=== PATIENT | male | born 1985 | race Caucasian/White ===

== ENCOUNTER 2016-11-30 11:34 | Inpatient (IN) | payer OTHER ==
[~2016-11-30] VITALS: Ht 185.4 cm; Wt 154.4 kg
[~2016-11-30 11:34] MED LIST: ARIP1INJ INJ; CGN5 PO; DPKSR/500 PO; HLD5 PO; HYDR-3126 PO; OMEP20CA9 PO; [UNRECOGNIZED DRUG - CODE] PO
--- NOTE | 2016-11-30 11:49 | EMERGENCY ROOM VISIT NOTE ---
History Report prepared by Addy: Jade Clayton Under the Supervision of: Dr. Glynn Hernandez M.D. First contact with patient: 11:41 Chief Complaint: MENTAL HEALTH EVALUATION Stated Complaint: MR History of Present Illness The patient is a 31 year old male who presents to the Emergency Room with complaints of worsening mental health issues. He reports he woke up around 0600 this morning, alone in his home. He started to have hallucinations where he felt like he was "going to be arrested" and drove down to a local courthouse. He reports he has a history of problems with a neighbor and was afraid there might be some warrants out for his arrest. He also states "I have trouble interacting with people, I tend to make more enemies than friends". At the courthouse, he spoke to a local customer service security officer, and was told he was going to be brought to the ED to talk with the [employer]. The patient admits to a history of bipolar disorder and schizophrenia. He follows with Dr. Tang, of Psychiatry at [facility]. The patient denies drinking any alcohol last night or this morning. He reports the last time he drank alcohol was last week some time. The patient states there are a lot of rumors in his life that are making things difficult for him. He denies any recent suicidal or homicidal ideations. He reports he has been taking his psychiatric medications as directed, but states he has not had his morning dose of medications yet today. He denies any recent trauma or injuries. He states his head feels warm and he may be running a fever. Source of History: patient Onset: [employer] Position: other (global) Timing: worsening Associated Symptoms: + fevers Review of Systems See HPI for pertinent positives & negatives. A total of 10 systems reviewed and were otherwise negative. Past Medical & Surgical Medical Problems: (1) History of bipolar disorder (2) History of schizophrenia (3) Nicotine dependence (4) Past Psych Meds (5) Schizoaffective disorder, bipolar type Old medical records were reviewed. Nurse's notes were reviewed and I agree with. Family History No pertinent family history Social History Smoking Status: Current Some Day Smoker Alcohol Use: occasionally Drug Use: none Marital Status: single Housing Status: lives with roommate Occupation Status: unemployed Current/Historical Medications Scheduled Aripiprazole (Abilify Maintena), 400 MG INJ MONTHLY Divalproex Sodium (Depakote Etended-Release), 500 MG PO DAILY Divalproex Sodium (Depakote Er), 2 TAB PO HS Hydroxyzine Hcl (Atarax), 50 MG PO BID Quetiapine Fumarate (Seroquel), 25 MG PO HS Scheduled PRN Benztropine Mesylate (Cogentin), 1 MG PO TID PRN for PRN Allergies Coded Allergies: Aminoglycosides (Verified Allergy, Unknown, 12/01/09) Neomycin (Verified Allergy, Unknown, 11/30/16) Physical Exam Vital Signs Date Time Temp Pulse Resp B/P Pulse Ox O2 Delivery O2 Flow Rate FiO2 11/30/16 13:26 105 18 142/103 96 Room Air 11/30/16 11:35 36.4 94 18 182/124 96 Room Air Physical Exam General: Well developed, well nourished, middle aged male, in no acute distress , breathing comfortably on room air. Normal speech, answering questions vaguely but appropriately. Patient is alert and oriented x 3. HEENT: Normal cephalic atraumatic. Pupils are equal round and reactive to light. Extraocular movements are intact. Oropharynx is pink with moist mucous membranes. No swelling of the mouth lips or tongue. Neck: Supple with a midline trachea. No meningeal signs or stiffness, no JVD or bruits. No Stridor. Chest: Clear to auscultation bilaterally. No wheezes or rhonchi. No increased work of breathing. Heart: regular rate and rhythm. Abdomen: Soft nontender, nondistended without rebound guarding or rigidity. Extremities: No cyanosis clubbing or edema. No calf tenderness or assymetry Spine/Back. Non tender to palpation. No CVA tenderness Skin: Good turgor without rashes. Neurologic exam: Cranial nerves two through 12 are intact. Motor and sensation are intact and symmetrical throughout. Psychiatric: The patient denies any SI or HI. Paranoid thinking with some disjointed thinking. Medical Decision & Procedures Laboratory Results 11/30/16 12:17 Red Blood Count 5.21, Mean Corpuscular Volume 85.2, Mean Corpuscular Hemoglobin 29.8, Mean Corpuscular Hemoglobin Concent 34.9, Mean Platelet Volume 11.1, Neutrophils (%) (Auto) 64.0, Lymphocytes (%) (Auto) 25.4, Monocytes (%) (Auto) 8.7, Eosinophils (%) (Auto) 0.9, Basophils (%) (Auto) 0.7, Neutrophils # (Auto) 3.75, Lymphocytes # (Auto) 1.49, Monocytes # (Auto) 0.51, Eosinophils # (Auto) 0.05, Basophils # (Auto) 0.04 11/30/16 12:17 Test 11/30/16 11:41 11/30/16 12:17 Urine Opiates Screen NEG (NEG) Urine Methadone, Qualitative NEG (NEG) Urine Barbiturates NEG (NEG) Urine Phencyclidine (PCP) Level NEG (NEG) Ur Amphetamine/Methamphetamine NEG (NEG) MDMA (Ecstasy) Screen NEG (NEG) Urine Benzodiazepines Screen NEG (NEG) Urine Cocaine Metabolite NEG (NEG) Urine Marijuana (THC) NEG (NEG) White Blood Count 5.86 K/uL (4.8-10.8) Red Blood Count 5.21 M/uL (4.7-6.1) Hemoglobin 15.5 g/dL (14.0-18.0) Hematocrit 44.4 % (42-52) Mean Corpuscular Volume 85.2 fL (80-100) Mean Corpuscular Hemoglobin 29.8 pg (25-34) Mean Corpuscular Hemoglobin Concent 34.9 g/dl (32-36) Platelet Count 201 K/uL (130-400) Mean Platelet Volume 11.1 fL (7.4-10.4) Neutrophils (%) (Auto) 64.0 % Lymphocytes (%) (Auto) 25.4 % Monocytes (%) (Auto) 8.7 % Eosinophils (%) (Auto) 0.9 % Basophils (%) (Auto) 0.7 % Neutrophils # (Auto) 3.75 K/uL (1.4-6.5) Lymphocytes # (Auto) 1.49 K/uL (1.2-3.4) Monocytes # (Auto) 0.51 K/uL (0.11-0.59) Eosinophils # (Auto) 0.05 K/uL (0-0.5) Basophils # (Auto) 0.04 K/uL (0-0.2) RDW Standard Deviation 39.8 fL (36.4-46.3) RDW Coefficient of Variation 12.9 % (11.5-14.5) Immature Granulocyte % (Auto) 0.3 % Immature Granulocyte # (Auto) 0.02 K/uL (0.00-0.02) Anion Gap 8.0 mmol/L (3-11) Est Creatinine Clear Calc Drug Dose 173.2 ml/min Estimated GFR () 122.3 Estimated GFR (Non- 105.5 BUN/Creatinine Ratio 8.6 (10-20) Calcium Level 9.3 mg/dl (8.5-10.1) Total Bilirubin 0.4 mg/dl (0.2-1) Direct Bilirubin < 0.1 mg/dl (0-0.2) Aspartate Amino Transf (AST/SGOT) 34 U/L (15-37) Alanine Aminotransferase (ALT/SGPT) 102 U/L (12-78) Alkaline Phosphatase 52 U/L (45-117) Total Protein 7.9 gm/dl (6.4-8.2) Albumin 4.5 gm/dl (3.4-5.0) Lipase 103 U/L (73-393) Thyroid Stimulating Hormone (TSH) 1.830 uIu/ml (0.300-4.500) Salicylates Level < 1.7 mg/dl (2.8-20) Acetaminophen Level < 2 ug/ml (10-30) Valproic Acid (Depakene) Level 34 mcg/ml (50-100) Ethyl Alcohol mg/dL < 3.0 mg/dl (0-3) Laboratory studies as stated above per my review. Medications Administered Medications (Trade) Dose Ordered Sig/Crystal Route Start Time Stop Time Status Last Admin Dose Admin Lorazepam (Ativan Tab) 1 mg NOW STAT SL 11/30/16 13:35 11/30/16 13:36 DC 11/30/16 13:41 1 MG Benztropine Mesylate (Cogentin Tab) 1 mg NOW STAT PO 11/30/16 14:21 11/30/16 14:22 DC 11/30/16 14:26 1 MG ED Course 1142: Past medical records reviewed. The patient was evaluated in room A7, and a complete history and physical examination were performed. 1215: Mental Health Case Management is evaluating the patient. 1230: Janneth, our Mental Health Acid Purifier, will work on having the patient further evaluated. 1334: I reevaluated the patient. He is getting Ativan because he was starting to become agitated. He is currently being seen by a [address] [place] [address] Mental Health Drafter Topographical. 1335: Lorazepam 1 mg SL. 1420: I discussed the patients case with [address] [place] [address]'s Psychiatric Care Floor. The patient will be further evaluated. 1421: Cogentin Tab 1 mg PO. Medical Decision Etiologies such as mood disorder, infection, hypoglycemia, electrolyte abnormalities, cardiac sources, intracerebral event, toxicologic, neurologic, as well as others were entertained. This patient comes in as described above. He was placed in room A7. Here for treatment and evaluation of paranoid and delusional thinking. He has a history of bipolar and/or schizophrenia. He claims to be taking his medications. He is cooperative upon exam however has very disjointed thinking and thought process he also seems very paranoid. He denies any suicidal or homicidal ideations. Multiple blood testing was obtained for medical clearance. He was reassessed frequently. He was seen in the emergency or by Janneth, our psychiatric foster care case manager. He did ultimately also received some Ativan as he started getting agitated this helped greatly. He was evaluated by [address] and will be admitted for further inpatient treatment and evaluation. Consults Time Called: 1419 Consulting Physician: [address] [place] [address]'s Psychiatric Care Floor Returned Call: 1421 I discussed the patient's case with [address] [place] [address] Psychiatric Care Floor. The patient will be further evaluated. Impression Primary Impression: Bipolar disorder Additional Impressions: Anxiety Paranoia Scribe Attestation The scribe's documentation has been prepared under my direction and personally reviewed by me in its entirety. I confirm that the note above accurately reflects all work, treatment, procedures, and medical decision making performed by me. Departure Information Dispostion Other (The patient will be further evaluated by [address] [place] [address]'s Psychiatric Care Floor) Referrals No Doctor, Assigned (PCP) Patient Instructions My [facility] Problem Qualifiers
[2016-11-30] MEDS ORDERED: QUET1TAB30 PO ×2 (12:27→16:27)
[2016-11-30 12:39] LABS: BASO % 0.7 %; BASO ABS # 0.04 K/uL (0-0.2); COMPLETE YES; EOS % 0.9 %; HEMATOCRIT 44.4 % (42-52); IG% 0.3 %; LYMPH % 25.4 %; LYMPH ABS # 1.49 K/uL (1.2-3.4); MEAN CELL VOLUME 85.2 fL (80-100); MEAN CORPUSCULAR HEMOGLOBIN 29.8 pg (25-34); MEAN CORPUSCULAR HGB CONC 34.9 g/dl (32-36); MEAN PLATELET VOLUME 11.1 fL (7.4-10.4); MONO % 8.7 %; PLATELET COUNT 201 K/uL (130-400); RED BLOOD COUNT 5.21 M/uL (4.7-6.1); WHITE BLOOD COUNT 5.86 K/uL (4.8-10.8)
[2016-11-30 13:09] LABS: BENZODIAZEPINE, URINE NEG (NEG); COCAINE,URINE NEG (NEG); PHENCYCLIDINE, URINE NEG (NEG)
[2016-11-30 13:12] LABS: ALKALINE PHOSPHATASE 52 U/L (45-117); ALT/SGPT 102 U/L (12-78); AST/SGOT 34 U/L (15-37)
[2016-11-30 13:15] LABS: BUN/CREATININE RATIO 8.6 (10-20); CALCIUM 9.3 mg/dl (8.5-10.1); CREATININE 0.95 mg/dl (0.60-1.40); POTASSIUM 4.3 mmol/L (3.5-5.1)
[2016-11-30 13:20] LABS: ACETAMINOPHEN < 2 ug/ml (10-30)
[2016-11-30 13:26] VITALS: O2SAT 96
[2016-11-30] MEDS ORDERED: LORAZEPAM 1 MG TAB SL STA (13:35)
[2016-11-30] MEDS ORDERED: BENZTROPINE MESYLATE 1 MG TAB PO STA (14:21)
[2016-11-30] MEDS ORDERED: BENZTROPINE MESYLATE 0.5 MG TAB PO PRN ×2 (15:45→22:00)
[2016-11-30] MEDS: NICOTINE 21 MG/24 HR TDSY TD SCH (16:00)
[2016-11-30] MEDS ORDERED: MAGNESIUM HYDROXIDE SUSP 30 ML UDC PO PRN (16:00)
[2016-11-30] MEDS ORDERED: ALUMINUM/MAGNESIUM SUSP 30 ML UDC PO PRN (16:00)
[2016-11-30] MEDS ORDERED: DIVALPROEX 500 MG EXTENDED RELEASE TAB PO ONE (16:00)
[2016-11-30] MEDS ORDERED: BISMUTH SUBSALICYLATE PER ML OMNICELL CHARGE PO PRN (16:00)
[2016-11-30] MEDS ORDERED: DPKSR/500 PO (16:20)
[2016-11-30] MEDS ORDERED: DIVA500T3 PO (16:22)
[2016-11-30] MEDS ORDERED: CGN1 PO (16:24)
[2016-11-30] MEDS ORDERED: HYDR-3126 PO (16:25)
[2016-11-30 16:29] VITALS: BP 147/84; PULSE 105; TEMP 36.6; BMI 44.9
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
[2016-11-30] MEDS: DIVALPROEX 500 MG EXTENDED RELEASE TAB PO SCH (20:58)
[2016-11-30] MEDS: QUETIAPINE FUMARATE 25 MG TAB PO SCH (20:59)
[2016-12-01 06:45] VITALS: BP_SYST 125; BP_SYST 130; BP_DIAS 66; BP_DIAS 83; PULSE 106; PULSE 98; TEMP 36.4
[2016-12-01 07:06] VITALS: Ht 185.4 cm; Wt 154.4 kg
[2016-12-01 07:15] LABS: CHOLESTEROL/HDL RATIO 5.3
[2016-12-01] MEDS: DIVALPROEX 500 MG EXTENDED RELEASE TAB PO SCH ×2 (08:49→22:23)
[2016-12-01] MEDS: NICOTINE 21 MG/24 HR TDSY TD SCH (08:49)
[2016-12-01] MEDS: NICOTINE POLACRILEX 2 MG GUM MT PRN ×3 (13:39→20:15)
[2016-12-01] MEDS: ACETAMINOPHEN 325 MG TAB PO PRN (13:40)
[2016-12-01] MEDS: NICOTINE 14 MG/24 HR TDSY TD SCH (13:44)
--- NOTE | 2016-12-01 20:03 | Psychiatric Progress Notes ---
Progress Note Date of Service Dec 01, 2016. Chief Complaint "I am doing better". Subjective Patient was seen & assessed interval progress reviewed with nurses. pt has some improvement to his thought process but is still with noticeable disorganization. Some mild boundary issues with how much personal space given other.s Pt stated no further Delusions of reference or thought broadcasting noted today while being able to express in more clear fashion how such symptoms were occurring in recent past while at work. pt is still rather concrete and insight is quite impaired., however he is viewing himself as fully at baseline. He reports sleeping well last night and staff assist in him sleeping past normal wake up time. He is taking his medications fully and denied s/e . He indicated that he last obtain an abilify mantena injection on 11/15 but also described that day as a Friday (while it was a Friday). he stated he is next due for the injection on 12/06 and that he obtains them 20 days apart. He shared how did not yet need a cogentin dose and just feels restless in general about being able to leave the hospital soon. He had told nurses at admission that he had cig allison that he does not know how they occurred on his back and face but today to technical writer and editor he denied them as cigarette allison and instead jsut a bump on his face and some skin irritation on his back that he is not sure how they arrived. he views himself as no longer paranoid. He described not feeling stuck in his past any longer and that he hears some mild mumbling but that the AH is much reduced and not bothersome today. He denied si or hi. He stated that his depression is much less today but can feel sad at times today but not sure why. He stated that he removed his nicotine patch this morning concerned that it was too strong but also stated might just be a bit out of it in general. He is interested in nicotine gum (which has been ordered) and wants a new nicotine patch. He stated that he smokes somewhat less then a pack in a day but only smokes about half the week. Review of Systems Constitutional: No chills, No fatigue, No fever, No problem reported, No sweats , No weakness, No weight loss ENT: No dental problems, No hearing loss, No nasal symptoms, No problem reported, No sore throat, No tinnitus, No trouble swallowing, No unusual epistaxis Cardiovascular: No PND, No chest pain, No claudication, No edema, No orthopnea , No palpitations, No problem reported Abdomen: No GI bleeding, No constipation, No diarrhea, No nausea, No pain, No problem reported, No vomiting Musculoskeletal: No calf pain, No joint pain, No muscle pain, No problem reported, No swelling Neurologic: No balance problems, No memory loss, No numbness/tingling, No paralysis, No problem reported, No vertigo, No weakness Psychiatric: + anxiety Sleep Information Total Hours of Sleep: 6.50 Meal Information Percent of Breakfast Consumed: 100 Percent of Lunch Consumed: 100 Percent of Dinner Consumed: 100 Mental Status Exam During interview pt is: alert and oriented, cooperative Appearance: appropriately dressed, other (wearing shorts that are torn with large gaping hole on right side, tshirt too small (other clothes appear to be at nursing station) rather poor hygiene ) Eye contact is: fair Motor behavior is: steady gait & station, psychomotor agitation Speech: normal in rate, rhythm & volume Affect: blunted, irritable Mood is: other ("better but restless to leave soon") Thought process: tangential, concrete Thought content: delusions, other (endorsed recent thought broadcasting and Delusions of reference denied occured today) Suicidal thought are: denied Homicidal thoughts are: denied Hallucinations: auditory (lessened signficantly per pt) Cognition: other (attention and concentration impaired) Intelligence estimated to be: average Insight: impaired Judgement: severely impaired Impression 31 yr old male admitted 201 vol commitment after being brought by the police when he was being disorganized at the courthouse [place]. Pt is with psychotic features and quite disorganized in his thinking and behaviors and not able to take care of self. He is taking his meds in general but appears to have been taking incomplete dosage of depakote lately with a low Depakote level obtained in ER (reported about 14 hours from last dosage) and unclear exact timing of last Abilify maintena injection but might have obtained a couple days ago, and external med history noted a dosage rx'd 11/06/16. He is also on seroquel 25mg hs for past number of months. He takes vistaril and cogentin prn as well. Medically he has obesity and pulmonary stenosis Plan (1) Schizoaffective disorder, bipolar type 2/4 1. clarify timing of last abilify maintena dosage, potential adjustment of this medication dosage and to continue and provider next dosage if/when due for it if appearing to be effective medication 2. raising seroquel with pt consenting, aiming for 50mg hs on 11/30 with possible further titration, limited first step up given pt also been obtaining abilify maintena (pt has been on both atypical antipsychotics for past several months and pt has limited sleep and ongoing psychotic/mood symptoms despite failing multiple antipsychotics including clozaril 3. pt states only taking Depakote 500mg 1 bid, with missing this mornings dosage but took it at 500mg bid past number of days and last took it about 9- 10pm last night per pt. depakote level around approx 14-15 hours from last dosage is low at. pt consents to raising Depakote to 500mg am and 1000mg hs starting with his 11/30 500mg dose given now. (this is his dosage on his recent scripts from his pharmacy. recheck depakote level in approx 5 days to see if this dosage provides therapeutic level 3. continue cogentin 1mg prn up to tid for eps/akathisia 4. continue vistaril 50mg prn up to tid for anxiety/insomnia 5. reality testing, emotional support 6. coordination with outpatient providers and aftercare appointments, if not actively in psychotherapy consider referral to psychotherapy 7. fasting lipids and glucose and labs for being on depakote 2/ fasting lipids trig and total choles elevated and sugar mildly elevated, encouraged pt to make changes in po intake and will consider potential of med adjustments to address this continue seroquel at 50mghs (raised on admission from 25mg), continue depakote er at 500mg am an 1000mg hs (raised back to full dose per prescription at admission) aim to recheck depakote level after 5 days of current dosage, aim to recheck ALT since mildly elevated at admission. ammonia level checked given level of confusion but level is appropriate and while considered just above normal range on [facility] lab reference point is not elevated to level would be likely to cause presentation that is now improving as Depakote is also being increased. (level also at upper limit of range when checked other reference range) last Abilify Mantena injection might have been given on 11/15 and reported to be due on 12/06, attempting to clarify with outpt specialty pharmacy and outpt providers to confirm this coordinating with outpt providers and pillowcase folder and after care appointments to be arranged (2) Nicotine dependence 11/30. pt smokes up to 1ppd and states not every day lately but many days a week. encouraged smoking cessation and provided nicotine patch 21mg topical per day and prn nicotine gum, pt not feeling ready to quit at this time but seeking patch to help with withdrawal and craving while in hospital 12/01 given pt taking of patch for possibly being too strong, reducing nicotine patch to 14mg, reminded pt about nicotine gum order Discharge / Aftercare Planning Primary Care Physician: Name: Dr. Valles Psychiatrist: Name: Dr. Tang Therapist: Name: none Secretary Of State: Name: Jennifer Suazo Assets Strengths: seeking medication adjustment and psychiatric help, has outpatient providers, realizes has mental illness that is impacting his thinking and behaviors Needs: medication adjustment, assistance in obtaining sleep and taking care of basic needs, stabilization of symptoms to help be more organized, more full complaince of treatment Risk Factors Assessment Male: Yes : Yes /single/: Yes Substance use disorders: No Previous attempt: No Family history of suicide: No Previous psychiatric stay: Yes Smoker: Yes Protective Factors Assessment Employed: Yes Data Vital Signs Last 24 Hrs: Date Time Temp Pulse Resp B/P Pulse Ox O2 Delivery O2 Flow Rate FiO2 12/01/16 06:45 36.4 98 16 130/66 106 125/83 Meds Administered Last 24 Hrs: Meds Administered (Past 24Hrs) Medications (Trade) Dose Ordered Sig/Crystal Route Start Time Stop Time Status Last Admin Dose Admin Lorazepam (Ativan Tab) 1 mg NOW STAT SL 11/30/16 13:35 11/30/16 13:36 DC 11/30/16 13:41 1 MG Benztropine Mesylate (Cogentin Tab) 1 mg NOW STAT PO 11/30/16 14:21 11/30/16 14:22 DC 11/30/16 14:26 1 MG Divalproex Sodium (Depakote Extended Rel Tab) 500 mg NOW ONCE PO 11/30/16 16:00 11/30/16 16:01 DC 11/30/16 20:57 500 MG Divalproex Sodium (Depakote Extended Rel Tab) 500 mg DAILY PO 12/01/16 09:00 12/31/16 08:59 12/01/16 08:49 500 MG Divalproex Sodium (Depakote Extended Rel Tab) 1,000 mg HS PO 11/30/16 22:00 12/30/16 21:59 11/30/16 20:58 1,000 MG Acetaminophen (Tylenol Tab) 650 mg Q4H PRN PO 11/30/16 16:00 12/30/16 15:59 12/01/16 13:40 650 MG Nicotine (Nicoderm Cq 21MG Patch) 1 patch QAM TD 12/01/16 09:00 12/01/16 13:24 DC 12/01/16 08:49 1 PATCH Nicotine Polacrilex (Nicorette 2MG Gum) 1 piece Q2H PRN MT 11/30/16 16:00 12/30/16 15:59 12/01/16 15:56 1 PIECE Quetiapine Fumarate (seroQUEL TAB) 50 mg HS PO 11/30/16 22:00 12/30/16 21:59 11/30/16 20:59 50 MG Nicotine (Nicoderm Cq 14MG Patch) 1 patch QAM TD 12/01/16 14:00 12/31/16 13:59 12/01/16 13:44 1 PATCH Lab Results Last 24 Hrs: Last 24 Hours Test 12/01/16 06:35 Fasting Glucose 105 mg/dl Ammonia 34.0 umol/L Triglycerides Level 315 mg/dl Cholesterol Level 218 mg/dl HDL Cholesterol 41 mg/dl LDL Cholesterol, Calculated 114 mg/dl VLDL Cholesterol, Calculated 63 mg/dl Cholesterol/HDL Ratio 5.3
[2016-12-01] MEDS: QUETIAPINE FUMARATE 25 MG TAB PO SCH (22:22)
[2016-12-02 06:34] VITALS: BP_SYST 128; BP_SYST 131; BP_DIAS 81; BP_DIAS 85; PULSE 106; PULSE 99; TEMP 36.8
[2016-12-02] MEDS: DIVALPROEX 500 MG EXTENDED RELEASE TAB PO SCH ×2 (08:59→22:01)
[2016-12-02] MEDS: NICOTINE 14 MG/24 HR TDSY TD SCH (08:59)
[2016-12-02] MEDS: NICOTINE POLACRILEX 2 MG GUM MT PRN ×3 (09:38→17:16)
--- NOTE | 2016-12-02 10:45 | Psychiatric Progress Notes ---
Progress Note Date of Service Dec 02, 2016. Interval History Bonilla Anderson is a 31-year-old male who currently lives in [place] alone, has a history of schizoaffective disorder bipolar type, noncompliance and alcohol abuse, and was admitted voluntarily after presenting with police due to disorganized behavior and showing up at the court house Friday, concerned that he was "in trouble." He is unable to provide for his basic needs due to psychosis. Chief Complaint "I had to leave group". Subjective Patient was seen & assessed interval progress reviewed with Treatment Team. Staff report he continues to demonstrate disorganized thoughts and behavior, with pressured speech, and expressing confusion about how he came to be in the hospital. He is attending groups, but sometimes has to leave early as he feels overwhelmed and is restless. He has difficulty communicating his thoughts in group, and is tangential. Today he was seen in his room, shortly after he got up and left relaxation group abruptly, stating that he heard a voice telling him he was "an idiot, a fucking retard, get up and leave. It was a body reaction, tears in my eyes... It was time to get up and leave." He has difficulty explaining what happened, saying that someone in the group said "' super fantastic,' and it just hit a nerve. A lot of things I deal with in life are called double negative, it might mean something good, but it means something bad." When asked about his mood, he says "disorganized and out of place, didn't know how to explain what was going on in my mind." He is a difficult historian, frequently answering with unrelated information, and gives conflicting reports at times. 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 He says "does that make any sense, presented delusional?" He says his mental health "has been up and down." He denies that he feels unsafe here, then says "have I heard anyone?" He denies thoughts of suicide or current thoughts of hurting anyone else. He admits to auditory hallucinations, saying "I do hear voices when I get too far inside my own mind, I don't know how that happens." He says he is anxious because "I'm being force-fed, like I'm reading it off a script. Something happened at the [facility]... It's not good." He initially says he is sleeping well, then says "my sleep's not good, not restful." Sleep Information Total Hours of Sleep: 7.75 Meal Information Percent of Breakfast Consumed: 100 Percent of Lunch Consumed: 100 Percent of Dinner Consumed: 100 Mental Status Exam During interview pt is: alert and oriented, cooperative Appearance: appropriately dressed, other (obese, unkempt) Eye contact is: fair Motor behavior is: steady gait & station, psychomotor agitation (fidgeting constantly, shifting frequently in chair) Speech: normal in rate, rhythm & volume Affect: anxious, constricted (distraught) Mood is: other (answers with unrelated information) Thought process: tangential, concrete Thought content: paranoid, other (negative thought/AH about himself) Suicidal thought are: denied Homicidal thoughts are: denied Hallucinations: auditory (telling him he's "an idiot") Cognition: other (attention and concentration impaired) Intelligence estimated to be: average Insight: impaired Judgement: severely impaired Medication Trials (1) Past Psych Meds clozapine, Zyprexa, Geodon, latuda, lamictal, Tegretol, klonopin, wellbutrin, lithium among other med trials that he cannot recall Last Edited By: Stefania Kumari on Dec 02, 2016 10:29 Impression 31 yr old male admitted 201 vol commitment after being brought by the police due to disorganized thinking and behavior, showed up at the court house thinking he was "in trouble." Presented with psychotic symptoms of auditory hallucinations, paranoia, ideas of reference and disorganization, unable to take care of himself. He is taking his meds in general but appears to have been taking incomplete dosage of Depakote lately with a low Depakote level obtained in ER, and unclear timing of last Abilify Maintena injection (external med history noted a dosage rx'd 11/06/16). He is also on Seroquel 25mg hs for past number of months, which was increased on admission. Plan (1) Schizoaffective disorder, bipolar type 2/4 1. clarify timing of last Abilify Maintena dosage, potential adjustment of this medication dosage and to continue and provider next dosage if/when due for it if appearing to be effective medication 2. raising seroquel with pt consenting, aiming for 50mg hs on 11/30 with possible further titration, limited first step up given pt also been obtaining abilify maintena (pt has been on both atypical antipsychotics for past several months and pt has limited sleep and ongoing psychotic/mood symptoms despite failing multiple antipsychotics including clozaril 3. pt states only taking Depakote 500mg 1 bid, with missing this mornings dosage but took it at 500mg bid past number of days and last took it about 9- 10pm last night per pt. depakote level around approx 14-15 hours from last dosage is low at. pt consents to raising Depakote to 500mg am and 1000mg hs starting with his 11/30 500mg dose given now. (this is his dosage on his recent scripts from his pharmacy. recheck depakote level in approx 5 days to see if this dosage provides therapeutic level 3. continue cogentin 1mg prn up to tid for eps/akathisia 4. continue vistaril 50mg prn up to tid for anxiety/insomnia 5. reality testing, emotional support 6. coordination with outpatient providers and aftercare appointments, if not actively in psychotherapy consider referral to psychotherapy 7. fasting lipids and glucose and labs for being on depakote 2/ fasting lipids: trig and total cholesterol elevated, and sugar mildly elevated. Encouraged healthy diet and will need ongoing monitoring continue seroquel at 50mghs (raised on admission from 25mg), continue depakote er at 500mg am an 1000mg hs (raised back to full dose per prescription at admission) aim to recheck depakote level after 5 days of current dosage, aim to recheck ALT since mildly elevated at admission. ammonia level checked given level of confusion but level is appropriate and while considered just above normal range on [facility] lab reference point is not elevated to level would be likely to cause presentation that is now improving as Depakote is also being increased. (level also at upper limit of range when checked other reference range) last Abilify Maintena injection might have been given on 11/15 and reported to be due on 12/06, attempting to clarify with outpt specialty pharmacy and outpt providers to confirm this coordinating with outpt providers and child support case officer and after care appointments to be arranged 12/02 - get records to clarify when received last Maintena injection. - Order recheck of LFTs, ammonia, and Depakote trough level for 12/05. - Coordinate with outpatient providers - Family meeting with child support case officer (2) Nicotine dependence 11/30 - pt smokes up to 1ppd and states not every day lately but many days a week. encouraged smoking cessation and provided nicotine patch 21mg topical per day and prn nicotine gum, pt not feeling ready to quit at this time but seeking patch to help with withdrawal and craving while in hospital 12/01 - patient removing patch as thinks it's too strong, so reduced to 14mg patch. Also has nicotine gum order when necessary. Discharge / Aftercare Planning Primary Care Physician: Name: Dr. Valles Psychiatrist: Name: Dr. Tang Therapist: Name: none Associate Sales: Name: Jennifer Ruiz Visit Code E&M Code: 64108 Inventory Assets Strengths: seeking medication adjustment and psychiatric help, has outpatient providers, realizes has mental illness that is impacting his thinking and behaviors Needs: medication adjustment, assistance in obtaining sleep and taking care of basic needs, stabilization of symptoms to help be more organized, more full complaince of treatment Risk Factors Assessment Male: Yes : Yes /single/: Yes Higher / Fall in social status: No Health problems: Yes Mental Health Diagnoses: Yes Substance use disorders: Yes Previous attempt: No Family history of suicide: No Previous psychiatric stay: Yes Hopelessness: No Smoker: Yes Protective Factors Assessment : No Responsible for young children: No Employed: Yes Stable relationships: No Supportive family: No Data Vital Signs Last 24 Hrs: Date Time Temp Pulse Resp B/P Pulse Ox O2 Delivery O2 Flow Rate FiO2 12/02/16 06:34 36.8 99 16 131/85 106 128/81 Meds Administered Last 24 Hrs: Meds Administered (Past 24Hrs) Medications (Trade) Dose Ordered Sig/Crystal Route Start Time Stop Time Status Last Admin Dose Admin Lorazepam (Ativan Tab) 1 mg NOW STAT SL 11/30/16 13:35 11/30/16 13:36 DC 11/30/16 13:41 1 MG Benztropine Mesylate (Cogentin Tab) 1 mg NOW STAT PO 11/30/16 14:21 11/30/16 14:22 DC 11/30/16 14:26 1 MG Divalproex Sodium (Depakote Extended Rel Tab) 500 mg NOW ONCE PO 11/30/16 16:00 11/30/16 16:01 DC 11/30/16 20:57 500 MG Divalproex Sodium (Depakote Extended Rel Tab) 500 mg DAILY PO 12/01/16 09:00 12/31/16 08:59 12/02/16 08:59 500 MG Divalproex Sodium (Depakote Extended Rel Tab) 1,000 mg HS PO 11/30/16 22:00 12/30/16 21:59 12/01/16 22:23 1,000 MG Acetaminophen (Tylenol Tab) 650 mg Q4H PRN PO 11/30/16 16:00 12/30/16 15:59 12/01/16 13:40 650 MG Nicotine (Nicoderm Cq 21MG Patch) 1 patch QAM TD 12/01/16 09:00 12/01/16 13:24 DC 12/01/16 08:49 1 PATCH Nicotine Polacrilex (Nicorette 2MG Gum) 1 piece Q2H PRN MT 11/30/16 16:00 12/30/16 15:59 12/02/16 09:38 1 PIECE Quetiapine Fumarate (seroQUEL TAB) 50 mg HS PO 11/30/16 22:00 12/30/16 21:59 12/01/16 22:22 50 MG Nicotine (Nicoderm Cq 14MG Patch) 1 patch QAM TD 12/01/16 14:00 12/31/16 13:59 12/02/16 08:59 1 PATCH
[2016-12-02] MEDS: ACETAMINOPHEN 325 MG TAB PO PRN ×2 (10:47→14:49)
[2016-12-02] MEDS: QUETIAPINE FUMARATE 25 MG TAB PO SCH (22:01)
[2016-12-03 06:41] VITALS: BP_SYST 149; BP_SYST 151; BP_DIAS 88; BP_DIAS 93; PULSE 93; PULSE 97; TEMP 36.8
[2016-12-03] MEDS: NICOTINE 14 MG/24 HR TDSY TD SCH (08:50)
[2016-12-03] MEDS: DIVALPROEX 500 MG EXTENDED RELEASE TAB PO SCH ×2 (08:50→21:22)
[2016-12-03] MEDS: NICOTINE POLACRILEX 2 MG GUM MT PRN ×3 (08:53→19:16)
[2016-12-03] MEDS: ACETAMINOPHEN 325 MG TAB PO PRN (10:26)
[2016-12-03] MEDS: hydrOXYzine HCL 25 MG TAB PO PRN ×2 (11:04→15:39)
--- NOTE | 2016-12-03 13:32 | Psychiatric Progress Notes ---
Progress Note Date of Service Dec 03, 2016. Interval History Bonilla Anderson is a 31-year-old male who currently lives in [place] alone, has a history of schizoaffective disorder bipolar type, noncompliance and alcohol abuse, and was admitted voluntarily after presenting with police due to disorganized behavior and showing up at the court house Friday, concerned that he was "in trouble." He is unable to provide for his basic needs due to psychosis. Chief Complaint "Less Anxiety". Subjective Patient was seen & assessed interval progress reviewed with nursing. Patient reports that he took medication for anxiety at 11 am (took vistaril) and he is feeling less anxious. He has attended groups and stay longer and less overwhelmed than on previous days. He does answer questions appropriately but at time string together thoughts that seem unrelated. He is worried about his car and wonders if he can trust his parents, to whom he gave the keys to retrieve his car from where is left it before coming to hospital. He has tried to call them and they are not answering. He denies suicidal or homicidal ideation. He says that he continues to hear his own repeated thoughts about himself. Denies auditory hallucinations. When describing his mood he said several words including "somber, happy, in the middle, normal" and would stop part way through the sentence and change the word. Review of Systems Musculoskeletal: + problem reported (back pain using heat patch and it is helping. ) Sleep Information Total Hours of Sleep: 7.50 Meal Information Percent of Breakfast Consumed: 100 Percent of Lunch Consumed: 100 Percent of Dinner Consumed: 100 Mental Status Exam During interview pt is: alert and oriented, cooperative Appearance: appropriately dressed, other (obese, unkempt, malodorus) Eye contact is: fair Motor behavior is: steady gait & station, psychomotor agitation (fidgeting in chair) Speech: normal in rate, rhythm & volume Affect: anxious, constricted (distraught) Mood is: other (answers with unrelated information) Thought process: tangential, concrete Thought content: paranoid (worried about parents taking care of car), other ( negative thought/AH about himself) Suicidal thought are: denied Homicidal thoughts are: denied Hallucinations: denies auditory, other (own voice telling him repeatedly that he is bad) Cognition: other (attention and concentration impaired) Intelligence estimated to be: average Insight: impaired Judgement: severely impaired Medication Trials (1) Past Psych Meds clozapine, Zyprexa, Geodon, latuda, lamictal, Tegretol, klonopin, wellbutrin, lithium among other med trials that he cannot recall Last Edited By: Stefania Kumari on Dec 02, 2016 10:29 Impression 31 yr old male admitted 201 vol commitment after being brought by the police due to disorganized thinking and behavior, showed up at the court house thinking he was "in trouble." Presented with psychotic symptoms of auditory hallucinations, paranoia, ideas of reference and disorganization, unable to take care of himself. He is taking his meds in general but appears to have been taking incomplete dosage of Depakote lately with a low Depakote level obtained in ER, and unclear timing of last Abilify Maintena injection (external med history noted a dosage rx'd 11/06/16 and last administered on 11/19/2016 and is due on 12/17/2016). He is also on Seroquel 25mg hs for past number of months, which was increased on admission. Plan (1) Schizoaffective disorder, bipolar type /4 1. clarify timing of last Abilify Maintena dosage, potential adjustment of this medication dosage and to continue and provider next dosage if/when due for it if appearing to be effective medication 2. raising seroquel with pt consenting, aiming for 50mg hs on 11/30 with possible further titration, limited first step up given pt also been obtaining abilify maintena (pt has been on both atypical antipsychotics for past several months and pt has limited sleep and ongoing psychotic/mood symptoms despite failing multiple antipsychotics including clozaril 3. pt states only taking Depakote 500mg 1 bid, with missing this mornings dosage but took it at 500mg bid past number of days and last took it about 9- 10pm last night per pt. depakote level around approx 14-15 hours from last dosage is low at. pt consents to raising Depakote to 500mg am and 1000mg hs starting with his 11/30 500mg dose given now. (this is his dosage on his recent scripts from his pharmacy. recheck depakote level in approx 5 days to see if this dosage provides therapeutic level 3. continue cogentin 1mg prn up to tid for eps/akathisia 4. continue vistaril 50mg prn up to tid for anxiety/insomnia 5. reality testing, emotional support 6. coordination with outpatient providers and aftercare appointments, if not actively in psychotherapy consider referral to psychotherapy 7. fasting lipids and glucose and labs for being on depakote 12/01 fasting lipids: trig and total cholesterol elevated, and sugar mildly elevated. Encouraged healthy diet and will need ongoing monitoring continue seroquel at 50mghs (raised on admission from 25mg), continue depakote er at 500mg am an 1000mg hs (raised back to full dose per prescription at admission) aim to recheck depakote level after 5 days of current dosage, aim to recheck ALT since mildly elevated at admission. ammonia level checked given level of confusion but level is appropriate and while considered just above normal range on [facility] lab reference point is not elevated to level would be likely to cause presentation that is now improving as Depakote is also being increased. (level also at upper limit of range when checked other reference range) last Abilify Maintena injection might have been given on 11/15 and reported to be due on 12/06, attempting to clarify with outpt specialty pharmacy and outpt providers to confirm this coordinating with outpt providers and catalytic case operator and after care appointments to be arranged 12/02 - get records to clarify when received last Maintena injection. - Order recheck of LFTs, ammonia, and Depakote trough level for 12/05. - Coordinate with outpatient providers - Family meeting with catalytic case operator\\ 12/03 -Last Maintena injection on 11/19/2016 and next is due on 12/17/2016 -patient later anxious, agitated and disorganized. Seroquel 25 mg bid prn ordered. (2) Nicotine dependence 11/30 - pt smokes up to 1ppd and states not every day lately but many days a week. encouraged smoking cessation and provided nicotine patch 21mg topical per day and prn nicotine gum, pt not feeling ready to quit at this time but seeking patch to help with withdrawal and craving while in hospital 12/01 - patient removing patch as thinks it's too strong, so reduced to 14mg patch. Also has nicotine gum order when necessary. Discharge / Aftercare Planning Primary Care Physician: Name: Dr. Solic Psychiatrist: Name: Dr. Tang Therapist: Name: none Testing Projects Administrator: Name: Jennifer Ruiz Visit Code E&M Code: 07680 Inventory Assets Strengths: seeking medication adjustment and psychiatric help, has outpatient providers, realizes has mental illness that is impacting his thinking and behaviors Needs: medication adjustment, assistance in obtaining sleep and taking care of basic needs, stabilization of symptoms to help be more organized, more full complaince of treatment Risk Factors Assessment Male: Yes : Yes /single/: Yes Higher / Fall in social status: No Health problems: Yes Mental Health Diagnoses: Yes Substance use disorders: Yes Previous attempt: No Family history of suicide: No Previous psychiatric stay: Yes Hopelessness: No Smoker: Yes Protective Factors Assessment : No Responsible for young children: No Employed: Yes Stable relationships: No Supportive family: No Data Vital Signs Last 24 Hrs: Date Time Temp Pulse Resp B/P Pulse Ox O2 Delivery O2 Flow Rate FiO2 12/03/16 06:41 36.8 97 16 149/88 93 151/93 Meds Administered Last 24 Hrs: Current Inpatient Medications Medications (Trade) Dose Ordered Sig/Crystal Route Start Time Stop Time Status Last Admin Dose Admin Divalproex Sodium (Depakote Extended Rel Tab) 500 mg DAILY PO 12/01/16 09:00 12/31/16 08:59 12/03/16 08:50 500 MG Divalproex Sodium (Depakote Extended Rel Tab) 1,000 mg HS PO 11/30/16 22:00 12/30/16 21:59 12/02/16 22:01 1,000 MG Hydroxyzine HCl (Vistaril Tab) 50 mg Q4H PRN PO 11/30/16 15:45 12/30/16 15:44 12/03/16 11:04 50 MG Acetaminophen (Tylenol Tab) 650 mg Q4H PRN PO 11/30/16 16:00 12/30/16 15:59 12/03/16 10:26 650 MG Bismuth Subsalicylate (Kaopectate Liqd) 15 ml PRN PRN PO 11/30/16 16:00 12/30/16 15:59 Al Hydroxide/Mg Hydroxide (Maalox Susp) 30 ml Q4H PRN PO 11/30/16 16:00 12/30/16 15:59 Magnesium Hydroxide (Milk Of Magnesia Susp) 30 ml DAILY PRN PO 11/30/16 16:00 12/30/16 15:59 Nicotine Polacrilex (Nicorette 2MG Gum) 1 piece Q2H PRN MT 11/30/16 16:00 12/30/16 15:59 12/03/16 08:53 1 PIECE Miscellaneous (Remove Nicoderm Patch) 1 ea HS N/A 11/30/16 22:00 12/30/16 21:59 Benztropine Mesylate (Cogentin Tab) 1 mg TID PRN PO 11/30/16 22:00 12/30/16 21:59 Quetiapine Fumarate (seroQUEL TAB) 50 mg HS PO 11/30/16 22:00 12/30/16 21:59 12/02/16 22:01 50 MG Nicotine (Nicoderm Cq 14MG Patch) 1 patch QAM TD 12/01/16 14:00 12/31/16 13:59 12/03/16 08:50 1 PATCH Miscellaneous (Remove Nicoderm Patch) 1 ea HS N/A 12/01/16 22:00 12/31/16 21:59
[2016-12-03] MEDS ORDERED: QUETIAPINE FUMARATE 25 MG TAB PO PRN (16:00)
[2016-12-03] MEDS: QUETIAPINE FUMARATE 25 MG TAB PO SCH (21:23)
[2016-12-04 06:58] VITALS: BP_SYST 136; BP_SYST 164; BP_DIAS 107; BP_DIAS 86; PULSE 93; PULSE 99; TEMP 36.5
[2016-12-04] MEDS: NICOTINE 14 MG/24 HR TDSY TD SCH (09:16)
[2016-12-04] MEDS: DIVALPROEX 500 MG EXTENDED RELEASE TAB PO SCH ×2 (09:16→21:33)
[2016-12-04] MEDS: NICOTINE POLACRILEX 2 MG GUM MT PRN (10:08)
[2016-12-04] MEDS: ACETAMINOPHEN 325 MG TAB PO PRN (10:09)
--- NOTE | 2016-12-04 10:31 | Psychiatric Progress Notes ---
Progress Note Date of Service Dec 04, 2016. Interval History Bonilla Anderson is a 31-year-old male who currently lives in [place] alone, has a history of schizoaffective disorder bipolar type, noncompliance and alcohol abuse, and was admitted voluntarily after presenting with police due to disorganized behavior and showing up at the court house Friday, concerned that he was "in trouble." He is unable to provide for his basic needs due to psychosis. Chief Complaint "I have a hard time explaining it". Subjective Patient was seen & assessed interval progress reviewed with Treatment Team. Patient expresses himself in more linear terms today and able to return to a subject. He is concerned about how to find out the "what crosses the line" between a friendship and stalking. He doesn't understand how this behavior got him hospitalized as he was just trying to get some questions answered. He describes worrying about people watching him and gathering information about him. He yelled at his neighbor who works at the [employer] a few months ago and feels that she is watching his every move. Patient asks twice during conversation if he is "saying things that will keep me here longer." He speaks of concerns about how he will pay his bills as his boss had told him to lose 30lbs by 12/13 or her couldn't work there anymore. . He is willing, at least during our conversation, to have medication assistance from [employer]. He has difficulty with groups because he "doesn't know what to say those people." Mood is anxious. Denies SI or HI. He is somewhat more organized in his thoughts than during our conversation yesterday. Sleep Information Total Hours of Sleep: 6.25 Meal Information Percent of Breakfast Consumed: 100 Percent of Lunch Consumed: 100 Percent of Dinner Consumed: 100 Mental Status Exam During interview pt is: alert and oriented, cooperative Appearance: appropriately dressed Eye contact is: fair Motor behavior is: steady gait & station Speech: normal in rate, rhythm & volume Affect: mood congruent, anxious, constricted (distraught) Mood is: anxious Thought process: tangential (improved from yesterday), concrete Thought content: paranoid (worried about neighbor watching and someone gathering information about him), other (negative thought/AH about himself) Suicidal thought are: denied Homicidal thoughts are: denied Hallucinations: denies auditory, denies visual Cognition: other (attention and concentration impaired) Intelligence estimated to be: average Insight: impaired Judgement: impaired Medication Trials (1) Past Psych Meds clozapine, Zyprexa, Geodon, latuda, lamictal, Tegretol, klonopin, wellbutrin, lithium among other med trials that he cannot recall Last Edited By: Stefania Kumari on Dec 02, 2016 10:29 Impression 31 yr old male admitted 201 vol commitment after being brought by the police due to disorganized thinking and behavior, showed up at the court house thinking he was "in trouble." Presented with psychotic symptoms of auditory hallucinations, paranoia, ideas of reference and disorganization, unable to take care of himself. He is taking his meds in general but appears to have been taking incomplete dosage of Depakote lately with a low Depakote level obtained in ER, and unclear timing of last Abilify Maintena injection (external med history noted a dosage rx'd 11/06/16 and last administered on 11/19/2016 and is due on 12/17/2016). He is also on Seroquel 25mg hs for past number of months, which was increased on admission. Plan (1) Schizoaffective disorder, bipolar type 2/4 1. clarify timing of last Abilify Maintena dosage, potential adjustment of this medication dosage and to continue and provider next dosage if/when due for it if appearing to be effective medication 2. raising seroquel with pt consenting, aiming for 50mg hs on 11/30 with possible further titration, limited first step up given pt also been obtaining abilify maintena (pt has been on both atypical antipsychotics for past several months and pt has limited sleep and ongoing psychotic/mood symptoms despite failing multiple antipsychotics including clozaril 3. pt states only taking Depakote 500mg 1 bid, with missing this mornings dosage but took it at 500mg bid past number of days and last took it about 9- 10pm last night per pt. depakote level around approx 14-15 hours from last dosage is low at. pt consents to raising Depakote to 500mg am and 1000mg hs starting with his 11/30 500mg dose given now. (this is his dosage on his recent scripts from his pharmacy. recheck depakote level in approx 5 days to see if this dosage provides therapeutic level 3. continue cogentin 1mg prn up to tid for eps/akathisia 4. continue vistaril 50mg prn up to tid for anxiety/insomnia 5. reality testing, emotional support 6. coordination with outpatient providers and aftercare appointments, if not actively in psychotherapy consider referral to psychotherapy 7. fasting lipids and glucose and labs for being on depakote 12/01 fasting lipids: trig and total cholesterol elevated, and sugar mildly elevated. Encouraged healthy diet and will need ongoing monitoring continue seroquel at 50mghs (raised on admission from 25mg), continue depakote er at 500mg am an 1000mg hs (raised back to full dose per prescription at admission) aim to recheck depakote level after 5 days of current dosage, aim to recheck ALT since mildly elevated at admission. ammonia level checked given level of confusion but level is appropriate and while considered just above normal range on [facility] lab reference point is not elevated to level would be likely to cause presentation that is now improving as Depakote is also being increased. (level also at upper limit of range when checked other reference range) last Abilify Maintena injection might have been given on 11/15 and reported to be due on 12/06, attempting to clarify with outpt specialty pharmacy and outpt providers to confirm this coordinating with outpt providers and mental health case manager and after care appointments to be arranged 12/02 - get records to clarify when received last Maintena injection. - Order recheck of LFTs, ammonia, and Depakote trough level for 12/05. - Coordinate with outpatient providers - Family meeting with mental health case manager\\ 12/03 -Last Maintena injection on 11/19/2016 and next is due on 12/17/2016 -patient later anxious, agitated and disorganized. Seroquel 25 mg bid prn ordered. 12/04 meeting with froy Ruiz yesterday. She is referring for [facility] [employer]. - Recommend [facility] services. patient agrees. Will order scheduled Cogentin to see if any benefit for agitated motor behavior, and Seroquel 25 mg bid scheduled as patient agitated and doesn't ask for prns. Patient is hypertensive. vital signs q shift and will consider adding medication for hypertension if BP remains elevated when he is less anxious. (2) Nicotine dependence 2/4 - pt smokes up to 1ppd and states not every day lately but many days a week. encouraged smoking cessation and provided nicotine patch 21mg topical per day and prn nicotine gum, pt not feeling ready to quit at this time but seeking patch to help with withdrawal and craving while in hospital / - patient removing patch as thinks it's too strong, so reduced to 14mg patch. Also has nicotine gum order when necessary. Discharge / Aftercare Planning Primary Care Physician: Name: Dr. Valles Psychiatrist: Name: Dr. Tang Therapist: Name: none Compressor Mechanic Bus: Name: Jennifer Sara Visit Code E&M Code: 06400 Inventory Assets Strengths: seeking medication adjustment and psychiatric help, has outpatient providers, realizes has mental illness that is impacting his thinking and behaviors Needs: medication adjustment, assistance in obtaining sleep and taking care of basic needs, stabilization of symptoms to help be more organized, more full compliance of treatment Risk Factors Assessment Male: Yes : Yes /single/: Yes Higher / Fall in social status: No Health problems: Yes Mental Health Diagnoses: Yes Substance use disorders: Yes Previous attempt: No Family history of suicide: No Previous psychiatric stay: Yes Hopelessness: No Smoker: Yes Protective Factors Assessment : No Responsible for young children: No Employed: Yes Stable relationships: No Supportive family: No Data Vital Signs Last 24 Hrs: Date Time Temp Pulse Resp B/P Pulse Ox O2 Delivery O2 Flow Rate FiO2 12/04/16 06:58 36.5 93 17 136/86 99 164/107 Meds Administered Last 24 Hrs: Current Inpatient Medications Medications (Trade) Dose Ordered Sig/Crystal Route Start Time Stop Time Status Last Admin Dose Admin Divalproex Sodium (Depakote Extended Rel Tab) 500 mg DAILY PO 12/01/16 09:00 12/31/16 08:59 12/04/16 09:16 500 MG Divalproex Sodium (Depakote Extended Rel Tab) 1,000 mg HS PO 11/30/16 22:00 12/30/16 21:59 12/03/16 21:22 1,000 MG Hydroxyzine HCl (Vistaril Tab) 50 mg Q4H PRN PO 11/30/16 15:45 12/30/16 15:44 12/03/16 15:39 50 MG Acetaminophen (Tylenol Tab) 650 mg Q4H PRN PO 11/30/16 16:00 12/30/16 15:59 12/04/16 10:09 650 MG Bismuth Subsalicylate (Kaopectate Liqd) 15 ml PRN PRN PO 11/30/16 16:00 12/30/16 15:59 Al Hydroxide/Mg Hydroxide (Maalox Susp) 30 ml Q4H PRN PO 11/30/16 16:00 12/30/16 15:59 Magnesium Hydroxide (Milk Of Magnesia Susp) 30 ml DAILY PRN PO 11/30/16 16:00 12/30/16 15:59 Nicotine Polacrilex (Nicorette 2MG Gum) 1 piece Q2H PRN MT 11/30/16 16:00 12/30/16 15:59 12/04/16 10:08 1 PIECE Miscellaneous (Remove Nicoderm Patch) 1 ea HS N/A 11/30/16 22:00 12/30/16 21:59 Benztropine Mesylate (Cogentin Tab) 1 mg TID PRN PO 11/30/16 22:00 12/30/16 21:59 12/03/16 16:54 1 MG Quetiapine Fumarate (seroQUEL TAB) 50 mg HS PO 11/30/16 22:00 12/30/16 21:59 12/03/16 21:23 50 MG Nicotine (Nicoderm Cq 14MG Patch) 1 patch QAM TD 12/01/16 14:00 12/31/16 13:59 12/04/16 09:16 1 PATCH Miscellaneous (Remove Nicoderm Patch) 1 ea HS N/A 12/01/16 22:00 12/31/16 21:59 Quetiapine Fumarate (seroQUEL TAB) 25 mg BID PRN PO 12/03/16 16:00 01/02/17 15:59 12/03/16 18:09 25 MG
[2016-12-04] MEDS ORDERED: BENZTROPINE MESYLATE 1 MG TAB PO ONE (11:30)
[2016-12-04 12:19] VITALS: BP 129/92; PULSE 99
[2016-12-04] MEDS ORDERED: QUETIAPINE FUMARATE 25 MG TAB PO ONE (13:00)
[2016-12-04 14:49] VITALS: BP 129/86; PULSE 108
[2016-12-04] MEDS: QUETIAPINE FUMARATE 25 MG TAB PO SCH (17:22)
[2016-12-04] MEDS: BENZTROPINE MESYLATE 1 MG TAB PO SCH (21:33)
[2016-12-04 22:09] VITALS: BP 105/69; PULSE 81
[2016-12-05 06:40] VITALS: BP_SYST 109; BP_SYST 116; BP_DIAS 73; BP_DIAS 82; PULSE 111; PULSE 89; TEMP 36.4
[2016-12-05] MEDS: QUETIAPINE FUMARATE 25 MG TAB PO SCH ×2 (08:17→17:28)
[2016-12-05] MEDS: BENZTROPINE MESYLATE 1 MG TAB PO SCH ×2 (08:17→20:39)
[2016-12-05] MEDS: NICOTINE 14 MG/24 HR TDSY TD SCH (08:17)
[2016-12-05] MEDS: DIVALPROEX 500 MG EXTENDED RELEASE TAB PO SCH ×2 (09:04→20:39)
--- NOTE | 2016-12-05 12:54 | Psychiatric Progress Notes ---
Progress Note Date of Service Dec 05, 2016. Interval History Bonilla Anderson is a 31-year-old male who currently lives in [place] alone, has a history of schizoaffective disorder bipolar type, noncompliance and alcohol abuse, and was admitted voluntarily after presenting with police due to disorganized behavior and showing up at the court house Friday, concerned that he was "in trouble." He is unable to provide for his basic needs due to psychosis. Chief Complaint "Good, focus is better". Subjective Patient was seen & assessed interval progress reviewed with nursing. Staff report he is attending unit programming, but with minimal participation. His restlessness has improved, but he still has restlessness and frequently paces the halls. He spent some time in the day room watching TV with peers, but has little interaction with others. He spent some of his free time journaling. He appears to be eating and sleeping well, and is taking medications as prescribed. He has been requesting Seroquel when necessary, which he reports is helpful for anxiety. He is also getting Cogentin twice a day, which has been helpful for restlessness. He is still disorganized and thought blocked at times, but improved from admission. In my assessment today, the patient states that he thinks he is doing better, as focus is improved and he describes "more consistent thought processes," which she attributes to his medications. He talks for some time about his experience of disorganized thoughts, saying "my thoughts would just kind of escape me, but now they're clearing up." He still feels anxious and describes it as "on edge, nervous, paranoid around people, just uncomfortable." He says he worries about "how people will perceive me, won 't tell me how they know me, don't really have a good group of friends." He states he has been on Abilify for several years, and thinks he has been on the shot for over 2 years. He does admit that he decompensates when he does not take his oral medications, and states that if he misses more than a couple of days, he decompensates. He struggles to identify what happens that he goes off his medications, but says sometimes he runs out of them, and one time he lost some of his medicine. He is agreeing to a referral to [facility] med management to help with medication compliance at home. He denies side effects to medications, denies feeling sedated, lethargic, tremulous, or more unsteady when walking. He states he does not want to try any new medications, stating that he is had "bad reactions" in the past, and "I don't like to be a guinea pig." He was advised that the Depakote will require ongoing monitoring, as his ammonia level is slightly high, but that his liver enzymes have normalized. He reports some anxiety about being in the hospital so long, stating that he misses being outside and getting fresh air, and enjoys hiking in the [place]. He is been making lists of things he needs to do when he gets home, like cleaning. Although noticeably more organized when he started the interview, as it progresses, his thoughts become more disorganized, and he jumps rapidly from topic to topic, frequently losing his train of thought. He says he is "trying to listen to my self talk, so I don't lose it." He talks about problems in his apartment complex, stating that "I have problems with people coming and going, I hear water running, other people with mental health problems around... I don' t want to get too close, create more problems," and then starts talking about his medications "disappearing." He is hoping to leave sometime in the next several days, and is questioning whether he should submitted a 72 hour notice to withdraw from treatment. Sleep Information Total Hours of Sleep: 6.50 Meal Information Percent of Breakfast Consumed: 100 Percent of Lunch Consumed: 100 Percent of Dinner Consumed: 100 Mental Status Exam During interview pt is: alert and oriented, cooperative Appearance: appropriately dressed, other (mildly malodorous and unkempt) Eye contact is: fair Motor behavior is: steady gait & station, no abnormal motor movements Speech: normal in rate, rhythm & volume, other (slightly rapid at times, but not pressured) Affect: mood congruent, anxious, constricted (congruent with stated mood) Mood is: anxious (but improved from admission) Thought process: goal directed (more goal-directed at the beginning of the assessment, but thoughts became more disorganized as the interview progressed), looseness of associations, concrete Thought content: preoccupation (worries about what other people think about him ), paranoid (concerns about neighbors in his apartment complex) Suicidal thought are: denied Homicidal thoughts are: denied Hallucinations: denies auditory, denies visual Cognition: other (attention and concentration impaired) Intelligence estimated to be: average Insight: impaired Judgement: impaired Medication Trials (1) Past Psych Meds clozapine, Zyprexa, Geodon, latuda, lamictal, Tegretol, klonopin, wellbutrin, lithium among other med trials that he cannot recall Last Edited By: Stefania Kumari on Dec 02, 2016 10:29 Impression 31 yr old male admitted 201 vol commitment after being brought by the police due to disorganized thinking and behavior, showed up at the court house thinking he was "in trouble." Presented with psychotic symptoms of auditory hallucinations, paranoia, ideas of reference and disorganization, unable to take care of himself. He is taking his meds in general but appears to have been taking incomplete dosage of Depakote lately with a low Depakote level obtained in ER, and unclear timing of last Abilify Maintena injection (external med history noted a dosage rx'd 11/06/16 and last administered on 11/19/2016 and is due on 12/17/2016). He is also on Seroquel 25mg hs for past number of months, which was increased on admission. He is improving here, while taking oral medications regularly, and will need to work on a plan to improve compliance at home. Plan (1) Schizoaffective disorder, bipolar type 2/4 1. clarify timing of last Abilify Maintena dosage, potential adjustment of this medication dosage and to continue and provider next dosage if/when due for it if appearing to be effective medication 2. raising seroquel with pt consenting, aiming for 50mg hs on 11/30 with possible further titration, limited first step up given pt also been obtaining abilify maintena (pt has been on both atypical antipsychotics for past several months and pt has limited sleep and ongoing psychotic/mood symptoms despite failing multiple antipsychotics including clozaril 3. pt states only taking Depakote 500mg 1 bid, with missing this mornings dosage but took it at 500mg bid past number of days and last took it about 9- 10pm last night per pt. depakote level around approx 14-15 hours from last dosage is low at. pt consents to raising Depakote to 500mg am and 1000mg hs starting with his 11/30 500mg dose given now. (this is his dosage on his recent scripts from his pharmacy. recheck depakote level in approx 5 days to see if this dosage provides therapeutic level 3. continue cogentin 1mg prn up to tid for eps/akathisia 4. continue vistaril 50mg prn up to tid for anxiety/insomnia 5. reality testing, emotional support 6. coordination with outpatient providers and aftercare appointments, if not actively in psychotherapy consider referral to psychotherapy 7. fasting lipids and glucose and labs for being on depakote 12/01 fasting lipids: trig and total cholesterol elevated, and sugar mildly elevated. Encouraged healthy diet and will need ongoing monitoring continue seroquel at 50mghs (raised on admission from 25mg), continue depakote er at 500mg am an 1000mg hs (raised back to full dose per prescription at admission) aim to recheck depakote level after 5 days of current dosage, aim to recheck ALT since mildly elevated at admission. ammonia level checked given level of confusion but level is appropriate and while considered just above normal range on [facility] lab reference point is not elevated to level would be likely to cause presentation that is now improving as Depakote is also being increased. (level also at upper limit of range when checked other reference range) last Abilify Maintena injection might have been given on 11/15 and reported to be due on 12/06, attempting to clarify with outpt specialty pharmacy and outpt providers to confirm this coordinating with outpt providers and hospice case manager and after care appointments to be arranged 12/02 - get records to clarify when received last Maintena injection. - Order recheck of LFTs, ammonia, and Depakote trough level for 12/05. - Coordinate with outpatient providers - Family meeting with hospice case manager\\ 12/03 -Last Maintena injection on 11/19/2016 and next is due on 12/17/2016 -patient later anxious, agitated and disorganized. Seroquel 25 mg bid prn ordered. 12/04 - meeting with froy Ruiz yesterday. She is referring for Blended case Management. - Recommend [facility] services. patient agrees. - Will order scheduled Cogentin to see if any benefit for agitated motor behavior, and Seroquel 25 mg bid scheduled as patient agitated and doesn't ask for prns. - Patient is hypertensive. vital signs q shift and will consider adding medication for hypertension if BP remains elevated when he is less anxious. - Still have not received outpatient records from [facility]. Staff attempted to contact them, but could not reach anyone. 12/05 - Continue current medications. Depakote trough level is 61 today. Ammonia still elevated at 53, but no symptoms of hyperammonemia. Patient does not want to consider another mood stabilizer, and as he is asymptomatic with respect to elevated ammonia levels, we will continue the medication and recommend ongoing monitoring of ammonia. ALT was elevated on admission, but today has come down into the normal range. - Explore ways to increase support and structure at home, including referral for blended hospice case manager and [facility] med management. - Blood pressure in the normal range today, we'll continue to monitor. (2) Nicotine dependence 11/30 - pt smokes up to 1ppd and states not every day lately but many days a week. Encouraged smoking cessation and provided nicotine patch 21mg topical per day and prn nicotine gum, pt not feeling ready to quit at this time but seeking patch to help with withdrawal and craving while in hospital 12/01 - patient removing patch as thinks it's too strong, so reduced to 14mg patch. Also has nicotine gum order when necessary. (3) Hyperglycemia Fasting glucose elevated. Encourage healthy diet and weight loss. F/u with PCP (4) Hyperlipidemia TG and chol elevated on fasting labs. Will need f/u with PCP, Dr. Valles, at discharge. (5) Obesity Encourage healthy food choices, exercise, and weight loss. Will attempt to minimize use of medications that cause weight gain Discharge / Aftercare Planning Primary Care Physician: Name: Dr. Valles Psychiatrist: Name: Dr. Tang Therapist: Name: none Social Service Assistant: Name: Clare dhaliwal [facility] [[email or web address]] Phone Number: [phone] Date of Appointment: Dec 09, 2016 Time of Appointment: 4:00 Appointment Notes: at your apartment Visit Code E&M Code: 85710 Inventory Assets Strengths: seeking medication adjustment and psychiatric help, has outpatient providers, realizes has mental illness that is impacting his thinking and behaviors Needs: medication adjustment, assistance in obtaining sleep and taking care of basic needs, stabilization of symptoms to help be more organized, more full compliance of treatment Risk Factors Assessment Male: Yes : Yes /single/: Yes Higher / Fall in social status: No Health problems: Yes Mental Health Diagnoses: Yes Substance use disorders: Yes Previous attempt: No Family history of suicide: No Previous psychiatric stay: Yes Hopelessness: No Smoker: Yes Protective Factors Assessment : No Responsible for young children: No Employed: Yes Stable relationships: No Supportive family: No Data Vital Signs Last 24 Hrs: Date Time Temp Pulse Resp B/P Pulse Ox O2 Delivery O2 Flow Rate FiO2 12/05/16 06:40 36.4 89 16 116/82 111 109/73 12/04/16 22:09 81 12 105/69 12/04/16 14:49 108 129/86 Meds Administered Last 24 Hrs: Meds Administered (Past 24Hrs) Medications (Trade) Dose Ordered Sig/Crystal Route Start Time Stop Time Status Last Admin Dose Admin Quetiapine Fumarate (seroQUEL TAB) 25 mg BID PRN PO 12/03/16 16:00 12/04/16 11:49 DC 12/03/16 18:09 25 MG Benztropine Mesylate (Cogentin Tab) 1 mg BID PO 12/04/16 22:00 01/03/17 21:59 12/05/16 08:17 1 MG Benztropine Mesylate (Cogentin Tab) 1 mg 1130 ONCE PO 12/04/16 11:30 12/04/16 11:33 DC 12/04/16 12:15 1 MG Quetiapine Fumarate (seroQUEL TAB) 25 mg BID17 PO 12/04/16 17:00 01/03/17 16:59 12/05/16 08:17 25 MG Quetiapine Fumarate (seroQUEL TAB) 25 mg TODAY@1300 ONCE PO 12/04/16 13:00 12/04/16 13:01 DC 12/04/16 12:15 25 MG Lab Results Last 24 Hrs: Last 24 Hours Test 12/05/16 08:08 Total Bilirubin 0.6 mg/dl Direct Bilirubin 0.1 mg/dl Aspartate Amino Transf (AST/SGOT) 16 U/L Alanine Aminotransferase (ALT/SGPT) 72 U/L Alkaline Phosphatase 44 U/L Ammonia 53.0 umol/L Total Protein 7.1 gm/dl Albumin 4.1 gm/dl Valproic Acid (Depakene) Level 61 mcg/ml
[2016-12-05] MEDS: NICOTINE POLACRILEX 2 MG GUM MT PRN (13:22)
[2016-12-05 15:08] VITALS: BP 145/84; PULSE 114; TEMP 36.6
[2016-12-05] MEDS: QUETIAPINE FUMARATE 25 MG TAB PO PRN (20:42)
[2016-12-05 22:27] VITALS: BP 131/85; PULSE 102
[2016-12-06 06:56] VITALS: BP_SYST 118; BP_SYST 119; BP_DIAS 76; BP_DIAS 77; PULSE 102; PULSE 88; TEMP 36.6
[2016-12-06] MEDS: QUETIAPINE FUMARATE 25 MG TAB PO SCH ×2 (08:33→17:23)
[2016-12-06] MEDS: BENZTROPINE MESYLATE 1 MG TAB PO SCH ×2 (08:33→21:03)
[2016-12-06] MEDS: DIVALPROEX 500 MG EXTENDED RELEASE TAB PO SCH ×2 (08:33→21:03)
[2016-12-06] MEDS: NICOTINE 14 MG/24 HR TDSY TD SCH (08:33)
[2016-12-06] MEDS: QUETIAPINE FUMARATE 25 MG TAB PO PRN (10:57)
[2016-12-06] MEDS: NICOTINE POLACRILEX 2 MG GUM MT PRN (10:57)
[2016-12-06] MEDS: ACETAMINOPHEN 325 MG TAB PO PRN (10:58)
--- NOTE | 2016-12-06 12:42 | Psychiatric Progress Notes ---
Progress Note Date of Service Dec 06, 2016. Interval History Bonilla Anderson is a 31-year-old male who currently lives in [place] alone, has a history of schizoaffective disorder bipolar type, noncompliance and alcohol abuse, and was admitted voluntarily after presenting with police due to disorganized behavior and showing up at the court house Friday, concerned that he was "in trouble." He is unable to provide for his basic needs due to psychosis. Chief Complaint "I would like to get out of here." Subjective Patient was seen & assessed interval progress reviewed with Treatment Team. Patient is somewhat more organized but continues to have periods of agitation expressed to staff this morning that he was feeling paranoia about his neighbors. He also described feeling like he is at 2 different places at once. He did received prn Seroquel and seemed to be less agitated and more organized in this thoughts. He is attending programming and walking in the halls. He wonders when he can leave. She reports that his Abilify Daisyna is sent to the [facility] and then call him to pick it up which he does a couple days before his appointment at [facility] for the injection. He denies an thought of harming himself or others. He is expresses frustration and irritation with this question. He says that he is trying to journal and then goes back and reads what he writes to see if his thoughts are finished. He admits to having trouble with this and states "I'm not a technical proposal writer." Review of Systems negative Sleep Information Total Hours of Sleep: 9.75 Meal Information Percent of Breakfast Consumed: 100 Percent of Lunch Consumed: 100 Percent of Dinner Consumed: 100 Mental Status Exam During interview pt is: alert and oriented, cooperative Appearance: appropriately dressed Eye contact is: fair Motor behavior is: steady gait & station, no abnormal motor movements Speech: normal in rate, rhythm & volume, other (slightly rapid at times, but not pressured) Affect: mood congruent, anxious, constricted (congruent with stated mood) Mood is: anxious (but improved from admission) Thought process: goal directed (more goal-directed at the beginning of the assessment, but thoughts became more disorganized as the interview progressed), looseness of associations, concrete Thought content: preoccupation (worries about what other people think about him ), paranoid (concerns about neighbors in his apartment complex) Suicidal thought are: denied Homicidal thoughts are: denied Hallucinations: denies auditory, denies visual Cognition: other (attention and concentration impaired) Intelligence estimated to be: average Insight: impaired Judgement: impaired Medication Trials (1) Past Psych Meds clozapine, Zyprexa, Geodon, latuda, lamictal, Tegretol, klonopin, wellbutrin, lithium among other med trials that he cannot recall Last Edited By: Stefania Kumari on Dec 02, 2016 10:29 Impression 31 yr old male admitted 201 vol commitment after being brought by the police due to disorganized thinking and behavior, showed up at the court house thinking he was "in trouble." Presented with psychotic symptoms of auditory hallucinations, paranoia, ideas of reference and disorganization, unable to take care of himself. He is taking his meds in general but appears to have been taking incomplete dosage of Depakote lately with a low Depakote level obtained in ER, and unclear timing of last Abilify Maintena injection (external med history noted a dosage rx'd 11/06/16 and last administered on 11/19/2016 and is due on 12/17/2016). He is also on Seroquel 25mg hs for past number of months, which was increased on admission. He is improving here, while taking oral medications regularly, and will need to work on a plan to improve compliance at home. Plan (1) Schizoaffective disorder, bipolar type 2/4 1. clarify timing of last Abilify Maintena dosage, potential adjustment of this medication dosage and to continue and provider next dosage if/when due for it if appearing to be effective medication 2. raising seroquel with pt consenting, aiming for 50mg hs on 11/30 with possible further titration, limited first step up given pt also been obtaining abilify maintena (pt has been on both atypical antipsychotics for past several months and pt has limited sleep and ongoing psychotic/mood symptoms despite failing multiple antipsychotics including clozaril 3. pt states only taking Depakote 500mg 1 bid, with missing this mornings dosage but took it at 500mg bid past number of days and last took it about 9- 10pm last night per pt. depakote level around approx 14-15 hours from last dosage is low at. pt consents to raising Depakote to 500mg am and 1000mg hs starting with his 11/30 500mg dose given now. (this is his dosage on his recent scripts from his pharmacy. recheck depakote level in approx 5 days to see if this dosage provides therapeutic level 3. continue cogentin 1mg prn up to tid for eps/akathisia 4. continue vistaril 50mg prn up to tid for anxiety/insomnia 5. reality testing, emotional support 6. coordination with outpatient providers and aftercare appointments, if not actively in psychotherapy consider referral to psychotherapy 7. fasting lipids and glucose and labs for being on depakote 12/01 fasting lipids: trig and total cholesterol elevated, and sugar mildly elevated. Encouraged healthy diet and will need ongoing monitoring continue seroquel at 50mghs (raised on admission from 25mg), continue depakote er at 500mg am an 1000mg hs (raised back to full dose per prescription at admission) aim to recheck depakote level after 5 days of current dosage, aim to recheck ALT since mildly elevated at admission. ammonia level checked given level of confusion but level is appropriate and while considered just above normal range on [facility] lab reference point is not elevated to level would be likely to cause presentation that is now improving as Depakote is also being increased. (level also at upper limit of range when checked other reference range) last Abilify Maintena injection might have been given on 11/15 and reported to be due on 12/06, attempting to clarify with outpt specialty pharmacy and outpt providers to confirm this coordinating with outpt providers and case advocate and after care appointments to be arranged 12/02 - get records to clarify when received last Maintena injection. - Order recheck of LFTs, ammonia, and Depakote trough level for 12/05. - Coordinate with outpatient providers - Family meeting with case advocate\\ 12/03 -Last Maintena injection on 11/19/2016 and next is due on 12/17/2016 -patient later anxious, agitated and disorganized. Seroquel 25 mg bid prn ordered. 12/04 - meeting with froy Ruiz yesterday. She is referring for Blended case Management. - Recommend [facility] services. patient agrees. - Will order scheduled Cogentin to see if any benefit for agitated motor behavior, and Seroquel 25 mg bid scheduled as patient agitated and doesn't ask for prns. - Patient is hypertensive. vital signs q shift and will consider adding medication for hypertension if BP remains elevated when he is less anxious. - Still have not received outpatient records from [facility]. Staff attempted to contact them, but could not reach anyone. 12/05 - Continue current medications. Depakote trough level is 61 today. Ammonia still elevated at 53, but no symptoms of hyperammonemia. Patient does not want to consider another mood stabilizer, and as he is asymptomatic with respect to elevated ammonia levels, we will continue the medication and recommend ongoing monitoring of ammonia. ALT was elevated on admission, but today has come down into the normal range. - Explore ways to increase support and structure at home, including referral for blended case advocate and [employer] [facility] med management. - Blood pressure in the normal range today, we'll continue to monitor. 12/06 -Patient is willing to have a higher level of support including medication management services with [employer] and Blended case management. Patient's Maintena injection is sent to [facility] and they call him when it is ready to picked up and he takes it to [facility]. Next injection is scheduled for at 10 am. Also scheduled a post discharge appointment with Dr. Tang for 2016 at 11:[address] Tang at [facility] for medication management every 3months. (2) Nicotine dependence 11/30 - pt smokes up to 1ppd and states not every day lately but many days a week. Encouraged smoking cessation and provided nicotine patch 21mg topical per day and prn nicotine gum, pt not feeling ready to quit at this time but seeking patch to help with withdrawal and craving while in hospital 12/01 - patient removing patch as thinks it's too strong, so reduced to 14mg patch. Also has nicotine gum order when necessary. (3) Hyperglycemia Fasting glucose elevated. Encourage healthy diet and weight loss. F/u with PCP (4) Hyperlipidemia TG and chol elevated on fasting labs. Will need f/u with PCP, Dr. Valles, at discharge. (5) Obesity Encourage healthy food choices, exercise, and weight loss. Will attempt to minimize use of medications that cause weight gain Discharge / Aftercare Planning Primary Care Physician: Name: Dr. Valles Psychiatrist: Name: Dr. Tang Therapist: Name: none Retail Shift Supervisor: Name: Clare at [facility] Phone Number: [phone] Date of Appointment: Dec 09, 2016 Time of Appointment: 4:00 Appointment Notes: at your apartment Visit Code E&M Code: 54247 Inventory Assets Strengths: seeking medication adjustment and psychiatric help, has outpatient providers, realizes has mental illness that is impacting his thinking and behaviors Needs: medication adjustment, assistance in obtaining sleep and taking care of basic needs, stabilization of symptoms to help be more organized, more full compliance of treatment Risk Factors Assessment Male: Yes : Yes /single/: Yes Higher / Fall in social status: No Health problems: Yes Mental Health Diagnoses: Yes Substance use disorders: Yes Previous attempt: No Family history of suicide: No Previous psychiatric stay: Yes Hopelessness: No Smoker: Yes Protective Factors Assessment : No Responsible for young children: No Employed: Yes Stable relationships: No Supportive family: No Data Vital Signs Last 24 Hrs: Date Time Temp Pulse Resp B/P Pulse Ox O2 Delivery O2 Flow Rate FiO2 12/06/16 06:56 36.6 88 16 119/77 102 118/76 12/05/16 22:27 102 16 131/85 12/05/16 15:08 36.6 114 18 145/84 Meds Administered Last 24 Hrs: Current Inpatient Medications Medications (Trade) Dose Ordered Sig/Crystal Route Start Time Stop Time Status Last Admin Dose Admin Divalproex Sodium (Depakote Extended Rel Tab) 500 mg DAILY PO 12/01/16 09:00 12/31/16 08:59 12/06/16 08:33 500 MG Divalproex Sodium (Depakote Extended Rel Tab) 1,000 mg HS PO 11/30/16 22:00 12/30/16 21:59 12/05/16 20:39 1,000 MG Hydroxyzine HCl (Vistaril Tab) 50 mg Q4H PRN PO 11/30/16 15:45 12/30/16 15:44 12/03/16 15:39 50 MG Acetaminophen (Tylenol Tab) 650 mg Q4H PRN PO 11/30/16 16:00 12/30/16 15:59 12/06/16 10:58 650 MG Bismuth Subsalicylate (Kaopectate Liqd) 15 ml PRN PRN PO 11/30/16 16:00 12/30/16 15:59 Al Hydroxide/Mg Hydroxide (Maalox Susp) 30 ml Q4H PRN PO 11/30/16 16:00 12/30/16 15:59 Magnesium Hydroxide (Milk Of Magnesia Susp) 30 ml DAILY PRN PO 11/30/16 16:00 12/30/16 15:59 Nicotine Polacrilex (Nicorette 2MG Gum) 1 piece Q2H PRN MT 11/30/16 16:00 12/30/16 15:59 12/06/16 10:57 1 PIECE Nicotine (Nicoderm Cq 14MG Patch) 1 patch QAM TD 12/01/16 14:00 12/31/16 13:59 12/06/16 08:33 1 PATCH Miscellaneous (Remove Nicoderm Patch) 1 ea HS N/A 12/01/16 22:00 12/31/16 21:59 12/05/16 20:36 1 EA Benztropine Mesylate (Cogentin Tab) 1 mg BID PO 12/04/16 22:00 01/03/17 21:59 12/06/16 08:33 1 MG Quetiapine Fumarate (seroQUEL TAB) 25 mg BID17 PO 12/04/16 17:00 01/03/17 16:59 12/06/16 08:33 25 MG Quetiapine Fumarate (seroQUEL TAB) 25 mg Q4 PRN PO 12/05/16 13:00 01/04/17 12:59 12/06/16 10:57 25 MG
[2016-12-06 14:54] VITALS: BP 128/86; PULSE 109
[2016-12-06 22:22] VITALS: BP 127/85; PULSE 90
[2016-12-07 06:35] VITALS: BP_SYST 107; BP_SYST 115; BP_DIAS 74; BP_DIAS 80; PULSE 100; PULSE 84; TEMP 36.6
[2016-12-07] MEDS: QUETIAPINE FUMARATE 25 MG TAB PO SCH (08:34)
[2016-12-07] MEDS: DIVALPROEX 500 MG EXTENDED RELEASE TAB PO SCH (08:34)
[2016-12-07] MEDS: NICOTINE 14 MG/24 HR TDSY TD SCH (08:34)
[2016-12-07] MEDS: BENZTROPINE MESYLATE 1 MG TAB PO SCH (08:34)
[2016-12-07] MEDS ORDERED: SRQ25 PO (10:58)
--- NOTE | 2016-12-07 11:07 | Discharge Instructions ---
Discharge Information Report Includes Report will include the: Discharge Instructions & Summary Admission Admission Date / Time: Nov 30, 2016 at 14:28 Reason for Admission: Bipolar Disorder Discharge Discharge Diagnosis / Problem: schizoaffective disorder Condition at Discharge: Fair Discharge Goals Goal(s): Improve function, Improve disease control Activity Recommendations Activity Limitations: resume your previous activity . Instructions / Follow-Up Instructions / Follow-Up . SPECIAL CARE INSTRUCTIONS: 1. Follow through with your scheduled aftercare appointments. If unable to keep an appointment, please call to reschedule. 2. Take your medication only as prescribed. Medication should not be changed or stopped without the approval of your doctor. In the event of worsening symptoms or concerns about side effects, contact your doctor immediately. 3. Utilize new healthy coping skills, anger management skills, and stress management skills learned during your hospitalization. Journal feelings and process them with a support person. Identify stressors or situations that may result in relapse, deterioration or inappropriate behaviors and develop a plan to deal with those issues. 4. If your coping skills are ineffective and you are in crisis, contact your outpatient providers for direction. If unable to reach your providers, please call the CAN HELP LINE AT or go to the closest Emergency Room. 5. Avoid alcohol and un-prescribed drugs. 6. You have been provided with the Mental Health Advance Directives Pamphlet for your review. AFTERCARE APPOINTMENTS: * Please call your insurance company prior to your scheduled appointment to confirm your aftercare providers are covered. Take your insurance information to your appointments. . Discharge / Aftercare Planning Primary Care Physician: Name: Dr. Valles Psychiatrist: Name: [facility]/Dr. Kaur (2 appts) Date of Appointment: Dec 17, 2016 Time of Appointment: 1000 Appointment Notes: injection 12/17 at 1000. Appt. with at 1100 Therapist: Name Of Therapist: edwar Computer Animator: Name: Clare dhaliwal [facility] Phone Number: [phone] Date of Appointment: Dec 09, 2016 Time of Appointment: 4:00 Appointment Notes: at your apartment due for Abilify injection on 12/17. Apothecary to contact you to cloth picker as usual prior to your appointment at [facility]. . Follow-Up Care Plan for Follow-Up Care: you are encouraged to spend time with family today and have someone with you when return to the apartment for comfort on transition. Current Hospital Diet Patient's current hospital diet: Regular Diet Discharge Diet Recommended Diet: Regular Diet Procedures Procedures Performed: No Pending Studies Pending Studies at Discharge: No Medical Emergencies . Who to Call and When: Medical Emergencies: For questions or emergencies related to your hospital stay, please contact the Inpatient Behavioral Health Unit at [phone]. A chronic disease manager is on-call 19/05 for the Behavioral Health Unit for emergencies At any time you feel your situation is an emergency, you may also call 911 immediately. . Non-Emergent Contact Non-Emergency issues call your: Primary Care Provider, Psychiatrist, Therapist Contact Number: numbers above Advance Directives Existing Advance Directive: No Do You Have an Existing Mental: No Existing Living Will: No Existing Power of History Card Clerk: No Advance Directives Info Given: To Pt/S.O. Discharge Summary Admission HPI Per the Admitting provider: see H&P Hospital Course (1) Schizoaffective disorder, bipolar type 2/4 1. clarify timing of last Abilify Maintena dosage, potential adjustment of this medication dosage and to continue and provider next dosage if/when due for it if appearing to be effective medication 2. raising seroquel with pt consenting, aiming for 50mg hs on 11/30 with possible further titration, limited first step up given pt also been obtaining abilify maintena (pt has been on both atypical antipsychotics for past several months and pt has limited sleep and ongoing psychotic/mood symptoms despite failing multiple antipsychotics including clozaril 3. pt states only taking Depakote 500mg 1 bid, with missing this mornings dosage but took it at 500mg bid past number of days and last took it about 9- 10pm last night per pt. depakote level around approx 14-15 hours from last dosage is low at. pt consents to raising Depakote to 500mg am and 1000mg hs starting with his / 500mg dose given now. (this is his dosage on his recent scripts from his pharmacy. recheck depakote level in approx 5 days to see if this dosage provides therapeutic level 3. continue cogentin 1mg prn up to tid for eps/akathisia 4. continue vistaril 50mg prn up to tid for anxiety/insomnia 5. reality testing, emotional support 6. coordination with outpatient providers and aftercare appointments, if not actively in psychotherapy consider referral to psychotherapy 7. fasting lipids and glucose and labs for being on depakote 12/01 fasting lipids: trig and total cholesterol elevated, and sugar mildly elevated. Encouraged healthy diet and will need ongoing monitoring continue seroquel at 50mghs (raised on admission from 25mg), continue depakote er at 500mg am an 1000mg hs (raised back to full dose per prescription at admission) aim to recheck depakote level after 5 days of current dosage, aim to recheck ALT since mildly elevated at admission. ammonia level checked given level of confusion but level is appropriate and while considered just above normal range on [facility] lab reference point is not elevated to level would be likely to cause presentation that is now improving as Depakote is also being increased. (level also at upper limit of range when checked other reference range) last Abilify Maintena injection might have been given on 11/15 and reported to be due on 12/06, attempting to clarify with outpt specialty pharmacy and outpt providers to confirm this coordinating with outpt providers and watch case polisher and after care appointments to be arranged 12/02 - get records to clarify when received last Maintena injection. - Order recheck of LFTs, ammonia, and Depakote trough level for 12/05. - Coordinate with outpatient providers - Family meeting with watch case polisher\ 12/03 -Last Maintena injection on 11/19/2016 and next is due on 12/17/2016 -patient later anxious, agitated and disorganized. Seroquel 25 mg bid prn ordered. 12/04 - meeting with froy Ruiz yesterday. She is referring for Blended case Management. - Recommend [facility] services. patient agrees. - Will order scheduled Cogentin to see if any benefit for agitated motor behavior, and Seroquel 25 mg bid scheduled as patient agitated and doesn't ask for prns. - Patient is hypertensive. vital signs q shift and will consider adding medication for hypertension if BP remains elevated when he is less anxious. - Still have not received outpatient records from [facility]. Staff attempted to contact them, but could not reach anyone. 12/05 - Continue current medications. Depakote trough level is 61 today. Ammonia still elevated at 53, but no symptoms of hyperammonemia. Patient does not want to consider another mood stabilizer, and as he is asymptomatic with respect to elevated ammonia levels, we will continue the medication and recommend ongoing monitoring of ammonia. ALT was elevated on admission, but today has come down into the normal range. - Explore ways to increase support and structure at home, including referral for blended watch case polisher and [employer] [facility] med management. - Blood pressure in the normal range today, we'll continue to monitor. 12/06 -Patient is willing to have a higher level of support including medication management services with [facility] and Blended case management. Patient's Maintena injection is sent to [facility] and they call him when it is ready to picked up and he takes it to [facility]. Next injection is scheduled for at 10 am. Also scheduled a post discharge appointment with Dr. Tang for 2016 at 11:[address] Tang at [facility] for medication management every 3months. (2) Nicotine dependence 11/30 - pt smokes up to 1ppd and states not every day lately but many days a week. Encouraged smoking cessation and provided nicotine patch 21mg topical per day and prn nicotine gum, pt not feeling ready to quit at this time but seeking patch to help with withdrawal and craving while in hospital 12/01 - patient removing patch as thinks it's too strong, so reduced to 14mg patch. Also has nicotine gum order when necessary. (3) Hyperglycemia Fasting glucose elevated. Encourage healthy diet and weight loss. F/u with PCP (4) Hyperlipidemia TG and chol elevated on fasting labs. Will need f/u with PCP, Dr. Valles, at discharge. (5) Obesity Encourage healthy food choices, exercise, and weight loss. Will attempt to minimize use of medications that cause weight gain Risk Factors Assessment Male: Yes : Yes /single/: Yes Higher / Fall in social status: No Access to guns: No Health problems: Yes Mental Health Diagnoses: Yes Substance use disorders: Yes Previous attempt: No Family history of suicide: No Previous psychiatric stay: Yes Hopelessness: No Smoker: Yes Protective Factors Assessment : No Responsible for young children: No Employed: Yes Stable relationships: No Supportive family: No Day of Discharge Assessment Ricardo is requesting discharge. He is restless in anticipation to attributes it to anxiety/desire to return to his apartment rather than medication side effect. He states he's always had issues with his one neighbor but no longer feels that anyone is looking at him funny or means to do him harm. He recognizes that he is not in trouble. He states that any spaciness related to his medication has resolved. He is agreeable to spend time with family today. His thought processes are perseverative but more reality based, clear improvement from representations on admission. He is not responding to internal stimuli and denies SI/HI/keane. No ideas of reference or flight of ideas. He verbalizes safety plan and has a list of chores that he wants to complete when he does return to his apartment. He does not meet criteria for commitment and has met goals for inpatient level of care. Total Time Total Time Spent (min): Greater than 30 minutes Total Time Included: examination of the patient, medication reconciliation Tobacco Cessation at Discharge FDA approved Prescription: patient refused
[2016-12-07] MEDS: QUETIAPINE FUMARATE 25 MG TAB PO PRN (12:53)
== END 2016-12-07 13:15 | disposition home or self-care (01) | DRG 885 ==
LOC: C.EDB 11:36 → C.MHU 14:28
PROVIDERS: ADMIT Psychiatry & Neurology Psychiatry; ATTEND Psychiatry & Neurology Psychiatry
DX: F25.0 Schizoaffective disorder, bipolar type (principal); F31.9 Bipolar disorder, unspecified; F41.9 Anxiety disorder, unspecified; F10.10 Alcohol abuse, uncomplicated; E66.9 Obesity, unspecified; E78.2 Mixed hyperlipidemia; R73.9 Hyperglycemia, unspecified; I28.8 Other diseases of pulmonary vessels; I10 Essential (primary) hypertension; F17.210 Nicotine dependence, cigarettes, uncomplicated; Z62.810 Personal history of physical and sexual abuse in childhood; Z62.811 Personal history of psychological abuse in childhood; Z91.14 Patient's other noncompliance with medication regimen; Z81.8 Family history of other mental and behavioral disorders; Z83.3 Family history of diabetes mellitus; Z79.899 Other long term (current) drug therapy

== ENCOUNTER → 2017-01-06 | Outpatient (CLI) | payer OTHER ==
[~2017-01-06] MED LIST changes: +CGN1 PO; -CGN5 PO; +DIVA500T3 PO; -HLD5 PO; -OMEP20CA9 PO; +QUET1TAB34 PO; +SRQ25 PO; -[UNRECOGNIZED DRUG - CODE] PO
[2017-01-06 09:46] LABS: BASO % 0.6 %; BASO ABS # 0.03 K/uL (0-0.2); COMPLETE YES; EOS % 1.8 %; HEMATOCRIT 43.1 % (42-52); IG% 0.8 %; LYMPH % 32.9 %; LYMPH ABS # 1.63 K/uL (1.2-3.4); MEAN CELL VOLUME 88.1 fL (80-100); MEAN CORPUSCULAR HEMOGLOBIN 30.1 pg (25-34); MEAN CORPUSCULAR HGB CONC 34.1 g/dl (32-36); MEAN PLATELET VOLUME 11.2 fL (7.4-10.4); MONO % 11.9 %; PLATELET COUNT 192 K/uL (130-400); RED BLOOD COUNT 4.89 M/uL (4.7-6.1); WHITE BLOOD COUNT 4.96 K/uL (4.8-10.8)
== END | disposition home or self-care (01) ==
LOC: C.LAB 08:18
PROVIDERS: ATTEND Psychiatry & Neurology Psychiatry
DX: F25.0 Schizoaffective disorder, bipolar type (principal)

== ENCOUNTER 2017-01-28 11:36 | Inpatient (IN) | payer OTHER ==
[~2017-01-28] VITALS: Ht 185.4 cm; Wt 157.5 kg
[~2017-01-28 11:36] MED LIST changes: +BENZ-89 PO; -CGN1 PO; -QUET1TAB34 PO
[2017-01-28] MEDS ORDERED: HALOPERIDOL 5 MG TAB PO STA (12:25)
[2017-01-28] MEDS ORDERED: LORAZEPAM 2 MG TAB PO STA (12:25)
[2017-01-28 12:26] LABS: URINE APPEARANCE CLEAR (CLEAR); URINE BILIRUBIN NEG (NEG); URINE COLOR YELLOW; URINE NITRITE NEG (NEG); URINE PH 7.5 (4.5-7.5); URINE SPECIFIC GRAVITY 1.008 (1.000-1.030); UROBILINOGEN NEG (NEG)
[2017-01-28 12:32] LABS: MANUAL MICROSCOPIC REQUIRED? NO; REVIEW REQ? NO
--- NOTE | 2017-01-28 12:36 | EMERGENCY ROOM VISIT NOTE ---
History Report prepared by Addy: Alyssa Munguia Under the Supervision of: Dr. Dannie Diallo M.D. First contact with patient: 11:50 Chief Complaint: MENTAL HEALTH EVALUATION Stated Complaint: PARANOIA,DELUSIONS,HALLUCINATIONS,ANXIETY History of Present Illness The patient is a 31 year old male who presents to the Emergency Room with complaints of worsened disorganized thoughts that began prior to arrival. The patient states that his thoughts have been disorganized and has been feeling paranoid and delusional. He states that he has been blacking out. The patient states that he has a decrease in sleep. He states that he has been having some serious mental health issues, but states that he has been following with the [facility] for therapy. Source of History: patient Onset: prior to arrival Position: other (global) Quality: other (disorganized thoughts) Timing: worsening Note: Associated Symptoms: decrease in sleep, paranoid, delusional Review of Systems See HPI for pertinent positives & negatives. A total of 10 systems reviewed and were otherwise negative. Past Medical & Surgical Medical Problems: (1) History of bipolar disorder (2) History of schizophrenia (3) Hyperglycemia (4) Hyperlipidemia (5) Nicotine dependence (6) Obesity (7) Past Psych Meds (8) Psychosis (9) Schizoaffective disorder, bipolar type Family History No pertinent family history Social History Smoking Status: Current Every Day Smoker Alcohol Use: occasionally Drug Use: none Marital Status: single Housing Status: lives with roommate Occupation Status: unemployed Current/Historical Medications Scheduled Aripiprazole (Abilify Maintena), 400 MG INJ MONTHLY Divalproex Sodium (Depakote Etended-Release), 500 MG PO DAILY Divalproex Sodium (Depakote Er), 2 TAB PO HS Hydroxyzine Hcl (Atarax), 50 MG PO BID Quetiapine Fumarate (Quetiapine Fumarate), 25 MG PO BID17 Quetiapine Fumarate (Seroquel), 100 MG PO HS Scheduled PRN Benztropine Mesylate (Cogentin), 1 MG PO TID PRN for PRN Allergies Coded Allergies: Aminoglycosides (Verified Allergy, Unknown, 01/28/17) Neomycin (Verified Allergy, Unknown, 01/28/17) Physical Exam Vital Signs Date Time Temp Pulse Resp B/P Pulse Ox O2 Delivery O2 Flow Rate FiO2 01/28/17 13:55 125 20 147/88 95 Room Air 01/28/17 13:24 137 20 180/120 97 Room Air 01/28/17 11:40 36.7 129 24 97 Room Air Physical Exam GENERAL: Patient is a healthy-appearing well-nourished, malodorous HEAD: Normocephalic atraumatic EYES: Ocular movements intact pupils equal and react to light OROPHARYNX mucous membranes are moist no exudates present no erythema or edema present NECK: Supple no nuchal rigidity CHEST: Good equal expansion LUNGS: Clear and equal to auscultation CARDIAC: Normal S1 and S2 ABDOMEN: Soft nontender no guarding BACK: No CVA tenderness EXTREMITIES: No pain upon palpation normal muscle strength in all groups no clubbing cyanosis or edema NEURO: Patient is following commands is answering questions appropriately. Alert and oriented x3 Cranial Nerves 2-12 grossly intact PSYCH: Disorganized thoughts, seeing and hearing things Medical Decision & Procedures Laboratory Results 01/28/17 12:30 Red Blood Count 4.99, Mean Corpuscular Volume 86.6, Mean Corpuscular Hemoglobin 30.7, Mean Corpuscular Hemoglobin Concent 35.4, Mean Platelet Volume 10.7, Neutrophils (%) (Auto) 54.1, Lymphocytes (%) (Auto) 31.7, Monocytes (%) (Auto) 11.1, Eosinophils (%) (Auto) 1.8, Basophils (%) (Auto) 0.8, Neutrophils # (Auto ) 3.38, Lymphocytes # (Auto) 1.98, Monocytes # (Auto) 0.69, Eosinophils # (Auto ) 0.11, Basophils # (Auto) 0.05 01/28/17 12:30 Test 01/28/17 11:55 01/28/17 12:30 Urine Color YELLOW Urine Appearance CLEAR (CLEAR) Urine pH 7.5 (4.5-7.5) Urine Specific [place] 1.008 (1.000-1.030) Urine Protein NEG (NEG) Urine Glucose (UA) NEG (NEG) Urine Ketones NEG (NEG) Urine Occult Blood NEG (NEG) Urine Nitrite NEG (NEG) Urine Bilirubin NEG (NEG) Urine Urobilinogen NEG (NEG) Urine Leukocyte Esterase NEG (NEG) Urine Opiates Screen NEG (NEG) Urine Methadone, Qualitative NEG (NEG) Urine Barbiturates NEG (NEG) Urine Phencyclidine (PCP) Level NEG (NEG) Ur Amphetamine/Methamphetamine NEG (NEG) MDMA (Ecstasy) Screen NEG (NEG) Urine Benzodiazepines Screen NEG (NEG) Urine Cocaine Metabolite NEG (NEG) Urine Marijuana (THC) NEG (NEG) White Blood Count 6.24 K/uL (4.8-10.8) Red Blood Count 4.99 M/uL (4.7-6.1) Hemoglobin 15.3 g/dL (14.0-18.0) Hematocrit 43.2 % (42-52) Mean Corpuscular Volume 86.6 fL (80-100) Mean Corpuscular Hemoglobin 30.7 pg (25-34) Mean Corpuscular Hemoglobin Concent 35.4 g/dl (32-36) Platelet Count 209 K/uL (130-400) Mean Platelet Volume 10.7 fL (7.4-10.4) Neutrophils (%) (Auto) 54.1 % Lymphocytes (%) (Auto) 31.7 % Monocytes (%) (Auto) 11.1 % Eosinophils (%) (Auto) 1.8 % Basophils (%) (Auto) 0.8 % Neutrophils # (Auto) 3.38 K/uL (1.4-6.5) Lymphocytes # (Auto) 1.98 K/uL (1.2-3.4) Monocytes # (Auto) 0.69 K/uL (0.11-0.59) Eosinophils # (Auto) 0.11 K/uL (0-0.5) Basophils # (Auto) 0.05 K/uL (0-0.2) RDW Standard Deviation 42.3 fL (36.4-46.3) RDW Coefficient of Variation 13.2 % (11.5-14.5) Immature Granulocyte % (Auto) 0.5 % Immature Granulocyte # (Auto) 0.03 K/uL (0.00-0.02) Anion Gap 7.0 mmol/L (3-11) Est Creatinine Clear Calc Drug Dose 172.9 ml/min Estimated GFR () 119.2 Estimated GFR (Non- 102.9 BUN/Creatinine Ratio 5.9 (10-20) Calcium Level 9.1 mg/dl (8.5-10.1) Total Bilirubin 0.4 mg/dl (0.2-1) Direct Bilirubin < 0.1 mg/dl (0-0.2) Aspartate Amino Transf (AST/SGOT) 23 U/L (15-37) Alanine Aminotransferase (ALT/SGPT) 75 U/L (12-78) Alkaline Phosphatase 47 U/L (45-117) Total Protein 7.8 gm/dl (6.4-8.2) Albumin 4.5 gm/dl (3.4-5.0) Thyroid Stimulating Hormone (TSH) 2.350 uIu/ml (0.300-4.500) Valproic Acid (Depakene) Level 14 mcg/ml (50-100) Ethyl Alcohol mg/dL < 3.0 mg/dl (0-3) Labs reviewed by ED physician. Medications Administered Medications (Trade) Dose Ordered Sig/Crystal Route Start Time Stop Time Status Last Admin Dose Admin Haloperidol (Haldol Tab) 5 mg NOW STAT PO 01/28/17 12:25 01/28/17 12:28 DC 01/28/17 12:47 5 MG Hydroxyzine HCl (Vistaril Tab) 25 mg NOW STAT PO 01/28/17 13:01 01/28/17 13:02 DC 01/28/17 13:01 25 MG Ibuprofen (Advil Tab) 600 mg NOW STAT PO 01/28/17 13:58 01/28/17 13:59 DC 01/28/17 14:06 600 MG HCTZ/Lisinopril (Prinzide 20-25MG Tab) 1 tab NOW STAT PO 01/28/17 14:10 01/28/17 14:11 DC 01/28/17 14:36 1 TAB ECG Indication: other (hypertension) Rate (beats per minute): 122 Rhythm: sinus tachycardia Findings: no acute ischemic change, no ectopy ED Course 1218: Past medical records reviewed. The patient was evaluated in room A7. A complete history and physical examination was performed. 1225: Ordered Haldol Tab 5 mg PO. 1301: Ordered Vistaril Tab 25 mg PO. 1358: Ordered Advil Tab 600 mg PO. 1410: Ordered Lisinopril/HCTZ 1 tab PO. 1520: The patient has been accepted to [facility] for further evaluation and treatment. Medical Decision Differential diagnosis: Etiologies such as mood disorder, infection, hypoglycemia, electrolyte abnormalities, cardiac sources, intracerebral event, toxicologic, neurologic, as well as others were entertained. This is a 31-year-old male who presents emergency Department with pressured speech as well as flight of ideas. The patient appears very agitated and keeps referring to visions and allusions that are not there. He actually believes that he is in the future in the year 2024. Based on how agitated the patient is he was given Haldol here in the emergency department as well as Vistaril. Repeat examination with improvement the patient's symptoms. The patient's blood pressure was elevated upon arrival however I do believe it is from agitation and I will note that the blood pressure fell with time after being given Vistaril on Haldol. I did discuss the case with case management. They discussed the case with 3 S. who are willing to accept the patient. Patient willingly signed a 201 and was in agreement with the treatment plan. Impression Primary Impression: Psychosis Scribe Attestation The scribe's documentation has been prepared under my direction and personally reviewed by me in its entirety. I confirm that the note above accurately reflects all work, treatment, procedures, and medical decision making performed by me. Departure Information Dispostion Mental Health Acute Care Referrals No Doctor, Assigned (PCP) Problem Qualifiers Primary Impression: Psychosis Psychosis type: unspecified psychosis type Qualified Codes: F29 - Unspecified psychosis not due to a substance or known physiological condition
[2017-01-28 12:47] LABS: BENZODIAZEPINE, URINE NEG (NEG); COCAINE,URINE NEG (NEG); PHENCYCLIDINE, URINE NEG (NEG)
[2017-01-28 12:48] LABS: BASO % 0.8 %; BASO ABS # 0.05 K/uL (0-0.2); COMPLETE YES; EOS % 1.8 %; HEMATOCRIT 43.2 % (42-52); IG% 0.5 %; LYMPH % 31.7 %; LYMPH ABS # 1.98 K/uL (1.2-3.4); MEAN CELL VOLUME 86.6 fL (80-100); MEAN CORPUSCULAR HEMOGLOBIN 30.7 pg (25-34); MEAN CORPUSCULAR HGB CONC 35.4 g/dl (32-36); MEAN PLATELET VOLUME 10.7 fL (7.4-10.4); MONO % 11.1 %; NEUT % 54.1 %; PLATELET COUNT 209 K/uL (130-400); RED BLOOD COUNT 4.99 M/uL (4.7-6.1); WHITE BLOOD COUNT 6.24 K/uL (4.8-10.8)
[2017-01-28] MEDS: LORAZEPAM 1 MG TAB PO ONE ×2 (12:48→12:55)
[2017-01-28] MEDS ORDERED: hydrOXYzine HCL 25 MG TAB PO STA (13:01)
[2017-01-28 13:08] LABS: ALT/SGPT 75 U/L (12-78); AST/SGOT 23 U/L (15-37); BLOOD UREA NITROGEN 6 mg/dl (7-18); BUN/CREATININE RATIO 5.9 (10-20); CALCIUM 9.1 mg/dl (8.5-10.1); CARBON DIOXIDE 30 mmol/L (21-32); CHLORIDE 102 mmol/L (98-107); CREATININE 0.97 mg/dl (0.60-1.40); GLUCOSE 93 mg/dl (70-99); POTASSIUM 4.4 mmol/L (3.5-5.1); SODIUM 139 mmol/L (136-145)
[2017-01-28] MEDS ORDERED: QUET1TAB34 PO (13:18)
[2017-01-28 13:19] LABS: ALKALINE PHOSPHATASE 47 U/L (45-117)
[2017-01-28] MEDS ORDERED: IBUPROFEN 200 MG TAB PO STA (13:58)
[2017-01-28] MEDS ORDERED: LISINOPRIL/HCTZ 20/25MG TAB PO STA (14:10)
[2017-01-28] MEDS ORDERED: BISMUTH SUBSALICYLATE PER ML OMNICELL CHARGE PO PRN (15:00)
[2017-01-28] MEDS ORDERED: hydrOXYzine HCL 25 MG TAB PO PRN ×2 (15:00)
[2017-01-28] MEDS ORDERED: ACETAMINOPHEN 325 MG TAB PO PRN (15:00)
[2017-01-28] MEDS ORDERED: QUETIAPINE FUMARATE 25 MG TAB PO PRN (15:00)
[2017-01-28] MEDS ORDERED: BENZTROPINE MESYLATE 1 MG TAB PO PRN (15:00)
[2017-01-28] MEDS ORDERED: ALUMINUM/MAGNESIUM SUSP 30 ML UDC PO PRN (15:00)
[2017-01-28] MEDS ORDERED: MAGNESIUM HYDROXIDE SUSP 30 ML UDC PO PRN (15:00)
[2017-01-28] MEDS ORDERED: SODIUM CHLORIDE 0.65% NA SOLN 45 ML (OCEAN) PRN (15:00)
[2017-01-28 15:12] VITALS: O2SAT 97
[2017-01-28 16:24] VITALS: BP 146/96; PULSE 120; TEMP 37; Ht 185.4 cm; Wt 157.5 kg
[2017-01-28] MEDS: QUETIAPINE FUMARATE 25 MG TAB PO SCH (17:24)
[2017-01-28] MEDS ORDERED: NICOTINE POLACRILEX 2 MG GUM MT PRN (19:30)
[2017-01-28] MEDS ORDERED: DIVALPROEX 500 MG EXTENDED RELEASE TAB PO SCH ×2 (21:00→22:00)
[2017-01-28] MEDS ORDERED: NICOTINE 21 MG/24 HR TDSY TD ONE (21:00)
[2017-01-28] MEDS: hydrOXYzine HCL 25 MG TAB PO SCH (21:02)
[2017-01-28] MEDS ORDERED: QUETIAPINE FUMARATE 100 MG TAB PO SCH (22:00)
[2017-01-29 07:00] VITALS: BP_SYST 130; BP_SYST 134; BP_DIAS 83; BP_DIAS 89; PULSE 116; PULSE 122; TEMP 36.4
[2017-01-29 08:52] LABS: CHOLESTEROL/HDL RATIO 5.3
[2017-01-29] MEDS: QUETIAPINE FUMARATE 25 MG TAB PO SCH ×2 (08:58→16:59)
[2017-01-29] MEDS: hydrOXYzine HCL 25 MG TAB PO SCH (08:58)
[2017-01-29] MEDS ORDERED: NICOTINE 21 MG/24 HR TDSY TD SCH (09:00)
[2017-01-29] MEDS ORDERED: DIVALPROEX 500 MG EXTENDED RELEASE TAB PO SCH (09:00)
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
[2017-01-29 16:49] VITALS: BP 130/89; PULSE 116; TEMP 36.4; O2SAT 97
== END 2017-01-29 18:30 | DRG 885 ==
LOC: ENRESERVTM → ENRESERVDT → C.EDB 11:38 → C.MHU 14:51
PROVIDERS: ADMIT Psychiatry & Neurology Psychiatry; ATTEND Psychiatry & Neurology Psychiatry
DX: F25.0 Schizoaffective disorder, bipolar type (principal); E78.5 Hyperlipidemia, unspecified; F17.200 Nicotine dependence, unspecified, uncomplicated; E66.9 Obesity, unspecified; Z83.3 Family history of diabetes mellitus; Z81.8 Family history of other mental and behavioral disorders

== ENCOUNTER 2017-03-26 18:38 | Emergency (ER) | payer OTHER ==
[~2017-03-26] VITALS: Ht 185.4 cm; Wt 162.6 kg
[~2017-03-26 18:38] MED LIST changes: +QUET1TAB34 PO
[2017-03-26 18:56] VITALS: TEMP 37; Ht 185.4 cm; Wt 162.6 kg
[2017-03-26] MEDS ORDERED: QUETIAPINE FUMARATE 100 MG TAB PO STA (19:39)
[2017-03-26] MEDS ORDERED: hydrOXYzine HCL 25 MG TAB PO STA (19:39)
[2017-03-26] MEDS ORDERED: DIVALPROEX 500 MG EXTENDED RELEASE TAB PO ONE (19:45)
[2017-03-26 19:57] LABS: URINE APPEARANCE CLEAR (CLEAR); URINE BILIRUBIN NEG (NEG); URINE COLOR DK YELLOW; URINE NITRITE NEG (NEG); URINE SPECIFIC GRAVITY 1.023 (1.000-1.030); UROBILINOGEN NEG (NEG)
[2017-03-26 20:03] LABS: MANUAL MICROSCOPIC REQUIRED? NO; REVIEW REQ? NO
[2017-03-26 20:07] LABS: BASO % 0.6 %; BASO ABS # 0.04 K/uL (0-0.2); COMPLETE YES; EOS % 1.5 %; HEMATOCRIT 44.3 % (42-52); IG% 0.6 %; LYMPH % 34.9 %; LYMPH ABS # 2.34 K/uL (1.2-3.4); MEAN CELL VOLUME 86.4 fL (80-100); MEAN CORPUSCULAR HGB CONC 34.8 g/dl (32-36); MEAN PLATELET VOLUME 10.7 fL (7.4-10.4); MONO % 7.9 %; NEUT % 54.5 %; PLATELET COUNT 223 K/uL (130-400); RED BLOOD COUNT 5.13 M/uL (4.7-6.1); WHITE BLOOD COUNT 6.71 K/uL (4.8-10.8)
[2017-03-26 20:26] LABS: BENZODIAZEPINE, URINE NEG (NEG); COCAINE,URINE NEG (NEG); PHENCYCLIDINE, URINE NEG (NEG)
--- NOTE | 2017-03-26 20:38 | DIAGNOSTIC IMAGING REPORT ---
RIGHT HAND MIN 3 VIEWS ROUTINE CLINICAL HISTORY: Right hand pain. COMPARISON: None. DISCUSSION: No fractures or dislocations are visualized. No destructive lesions are evident. IMPRESSION: No fractures, dislocations, or destructive lesions are visualized. Electronically signed by: Checo Bartholomew M.D. 03/26/2017 8:36 PM Dictated Date/Time: 03/26/2017 8:36 PM
[2017-03-26 20:55] LABS: POTASSIUM 4.2 mmol/L (3.5-5.1); SODIUM 142 mmol/L (136-145)
[2017-03-26 21:00] LABS: AST/SGOT 25 U/L (15-37)
[2017-03-26 21:01] LABS: ALKALINE PHOSPHATASE 43 U/L (45-117); ALT/SGPT 74 U/L (12-78); BLOOD UREA NITROGEN 16 mg/dl (7-18); BUN/CREATININE RATIO 16.1 (10-20); CALCIUM 8.9 mg/dl (8.5-10.1); CARBON DIOXIDE 26 mmol/L (21-32); CHLORIDE 107 mmol/L (98-107); GLUCOSE 108 mg/dl (70-99)
[2017-03-26] MEDS ORDERED: LORAZEPAM 1 MG TAB SL STA ×2 (21:45→23:04)
[2017-03-26] MEDS ORDERED: EMPTY 8 DRAM VIAL ONE (23:11)
[2017-03-26 23:13] VITALS: BP 131/97; PULSE 100; O2SAT 96
--- NOTE | 2017-03-27 01:29 | EMERGENCY ROOM VISIT NOTE ---
History Report prepared by Addy: Annabel Hoffman Under the Supervision of: Dr. Chalo Gonzalez M.D. First contact with patient: 19:22 Chief Complaint: ANXIETY Stated Complaint: ANXIETY History of Present Illness The patient is a 31 year old male who presents to the Emergency Room with complaints of worsening anxiety starting a few days ago. The patient is worried about his neighbors, he would start to become anxious, and then his thoughts would become overwhelming. He states that "it wasn't my neighbors per se but some people who were visiting the neighbor." The patient reports that he does not really understand why he was frustrated with his surroundings. He reports that his thoughts have become disorganized. He has a history of similar symptoms and he was hospitalized last month. He denies any particular incidence that may have exacerbated his symptoms. He reports that he has been awake for the past 48 hours. He denies any suicidal or homicidal ideation. 2 weeks ago, the patient bumped his hand which has been hurting since then. He otherwise denies any pain. Pt denies LOC, headache, fevers, chills, diaphoresis, visual changes, neck pain , chest pain, breathing difficulties, nausea, vomiting, abdominal pain, back pain, melena, hematochezia, urinary symptoms, numbness, weakness, lymphadenopathy, rash, or other complaints. Source of History: patient Onset: a few days ago Position: other (global) Quality: other (anxiety) Timing: worsening Review of Systems See HPI for pertinent positives and negatives. A total of ten systems were reviewed and were otherwise negative. Past Medical & Surgical Medical Problems: (1) History of bipolar disorder (2) History of schizophrenia (3) Hyperglycemia (4) Hyperlipidemia (5) Nicotine dependence (6) Obesity (7) Past Psych Meds (8) Psychosis (9) Schizoaffective disorder, bipolar type Family History Diabetes mellitus (Paternal grandfather) No pertinent family history Social History Smoking Status: Current Every Day Smoker Alcohol Use: occasionally Drug Use: none Marital Status: single Housing Status: lives with roommate Occupation Status: unemployed Current/Historical Medications Scheduled Aripiprazole (Abilify Maintena), 400 MG INJ MONTHLY Divalproex Sodium (Depakote Etended-Release), 500 MG PO DAILY Divalproex Sodium (Depakote Er), 2 TAB PO HS Hydroxyzine Hcl (Atarax), 50 MG PO BID Quetiapine Fumarate (Quetiapine Fumarate), 25 MG PO BID17 Quetiapine Fumarate (Seroquel), 100 MG PO HS Scheduled PRN Benztropine Mesylate (Cogentin), 1 MG PO TID PRN for PRN Allergies Coded Allergies: Aminoglycosides (Verified Allergy, Unknown, 03/26/17) Neomycin (Verified Allergy, Unknown, 03/26/17) Physical Exam Vital Signs Date Time Temp Pulse Resp B/P Pulse Ox O2 Delivery O2 Flow Rate FiO2 03/26/17 23:13 100 18 131/97 96 03/26/17 20:37 85 20 161/103 95 Room Air 03/26/17 18:56 37.0 112 18 135/74 96 Room Air Physical Exam GENERAL: Awake, hyperalert, disheveled, no distress HENT: Normocephalic, atraumatic. TM's normal. Oropharynx unremarkable. EYES: PERRL. EOMI. Normal conjunctiva. Sclera non-icteric. NECK: Supple. No nuchal rigidity. FROM. No JVD or bruit. RESPIRATORY: CTA CARDIAC: RRR. No murmur. ABDOMEN: Soft, non distended. No tenderness to palpation. No rebound or guarding. No masses. MUSCULOSKELETAL: Tender in the fifth metacarpal. No edema. No discoloration. Gross motor strength symmetric. NEURO: Cranial nerves 2-12 grossly intact. Normal sensorium. No sensory or motor deficits noted. Speech normal. No pronator drift. SKIN: No rash or jaundice noted. A few excoriations on forearms. LYMPH: No adenopathy. PSYCH: Disorganized thought, pressured speech. No suicidal ideation. No homicidal ideation. Medical Decision & Procedures ER Provider Diagnostic Interpretation: X-ray: Per my interpretation, radiologist review. RIGHT HAND MIN 3 VIEWS ROUTINE CLINICAL HISTORY: Right hand pain. COMPARISON: None. DISCUSSION: No fractures or dislocations are visualized. No destructive lesions are evident. IMPRESSION: No fractures, dislocations, or destructive lesions are visualized. Electronically signed by: Checo Bartholomew M.D. 03/26/2017 8:36 PM Dictated Date/Time: 03/26/2017 8:36 PM Laboratory Results 03/26/17 19:56 Red Blood Count 5.13, Mean Corpuscular Volume 86.4, Mean Corpuscular Hemoglobin 30.0, Mean Corpuscular Hemoglobin Concent 34.8, Mean Platelet Volume 10.7, Neutrophils (%) (Auto) 54.5, Lymphocytes (%) (Auto) 34.9, Monocytes (%) (Auto) 7.9, Eosinophils (%) (Auto) 1.5, Basophils (%) (Auto) 0.6, Neutrophils # (Auto) 3.66, Lymphocytes # (Auto) 2.34, Monocytes # (Auto) 0.53, Eosinophils # (Auto) 0.10, Basophils # (Auto) 0.04 03/26/17 19:56 Test 03/26/17 19:00 03/26/17 19:54 03/26/17 19:56 Urine Color DK YELLOW Urine Appearance CLEAR (CLEAR) Urine pH 6.0 (4.5-7.5) Urine Specific [place] 1.023 (1.000-1.030) Urine Protein NEG (NEG) Urine Glucose (UA) NEG (NEG) Urine Ketones TRACE (NEG) Urine Occult Blood NEG (NEG) Urine Nitrite NEG (NEG) Urine Bilirubin NEG (NEG) Urine Urobilinogen NEG (NEG) Urine Leukocyte Esterase NEG (NEG) Urine Opiates Screen NEG (NEG) Urine Methadone, Qualitative NEG (NEG) Urine Barbiturates NEG (NEG) Urine Phencyclidine (PCP) Level NEG (NEG) Ur Amphetamine/Methamphetamine NEG (NEG) MDMA (Ecstasy) Screen POS (NEG) Urine Benzodiazepines Screen NEG (NEG) Urine Cocaine Metabolite NEG (NEG) Urine Marijuana (THC) NEG (NEG) Bedside Glucose 112 mg/dl (70-99) White Blood Count 6.71 K/uL (4.8-10.8) Red Blood Count 5.13 M/uL (4.7-6.1) Hemoglobin 15.4 g/dL (14.0-18.0) Hematocrit 44.3 % (42-52) Mean Corpuscular Volume 86.4 fL (80-100) Mean Corpuscular Hemoglobin 30.0 pg (25-34) Mean Corpuscular Hemoglobin Concent 34.8 g/dl (32-36) Platelet Count 223 K/uL (130-400) Mean Platelet Volume 10.7 fL (7.4-10.4) Neutrophils (%) (Auto) 54.5 % Lymphocytes (%) (Auto) 34.9 % Monocytes (%) (Auto) 7.9 % Eosinophils (%) (Auto) 1.5 % Basophils (%) (Auto) 0.6 % Neutrophils # (Auto) 3.66 K/uL (1.4-6.5) Lymphocytes # (Auto) 2.34 K/uL (1.2-3.4) Monocytes # (Auto) 0.53 K/uL (0.11-0.59) Eosinophils # (Auto) 0.10 K/uL (0-0.5) Basophils # (Auto) 0.04 K/uL (0-0.2) RDW Standard Deviation 40.6 fL (36.4-46.3) RDW Coefficient of Variation 12.7 % (11.5-14.5) Immature Granulocyte % (Auto) 0.6 % Immature Granulocyte # (Auto) 0.04 K/uL (0.00-0.02) Anion Gap 9.0 mmol/L (3-11) Est Creatinine Clear Calc Drug Dose 169.5 ml/min Estimated GFR () 114.9 Estimated GFR (Non- 99.1 BUN/Creatinine Ratio 16.1 (10-20) Calcium Level 8.9 mg/dl (8.5-10.1) Total Bilirubin 0.6 mg/dl (0.2-1) Direct Bilirubin < 0.1 mg/dl (0-0.2) Aspartate Amino Transf (AST/SGOT) 25 U/L (15-37) Alanine Aminotransferase (ALT/SGPT) 74 U/L (12-78) Alkaline Phosphatase 43 U/L (45-117) Total Protein 7.6 gm/dl (6.4-8.2) Albumin 4.3 gm/dl (3.4-5.0) Thyroid Stimulating Hormone (TSH) 2.590 uIu/ml (0.300-4.500) Valproic Acid (Depakene) Level 40 mcg/ml (50-100) Ethyl Alcohol mg/dL < 3.0 mg/dl (0-3) Laboratory results reviewed by me Medications Administered Medications (Trade) Dose Ordered Sig/Crystal Route Start Time Stop Time Status Last Admin Dose Admin Hydroxyzine HCl (Vistaril Tab) 50 mg NOW STAT PO 03/26/17 19:39 03/26/17 19:41 DC 03/26/17 19:56 50 MG Quetiapine Fumarate (seroQUEL TAB) 100 mg NOW STAT PO 03/26/17 19:39 03/26/17 19:41 DC 03/26/17 19:56 100 MG Divalproex Sodium (Depakote Extended Rel Tab) 1,000 mg NOW ONCE PO 03/26/17 19:45 03/26/17 19:46 DC 03/26/17 19:56 1,000 MG Lorazepam (Ativan Tab) 1 mg NOW STAT SL 03/26/17 21:45 03/26/17 21:46 DC 03/26/17 22:31 1 MG Lorazepam (Ativan Tab) 1 mg NOW STAT SL 03/26/17 23:04 03/26/17 23:06 DC 03/26/17 23:13 1 MG ED Course 1921: The patient was evaluated in room A07. A complete history and physical exam was performed. Medication Reconciliation: I attest that I have personally reviewed the patient' s current medication list 1938: Quetiapine Fumarate 100 mg PO, Vistaril Tab 50 mg PO 1944: Divalproex Sodium 1000 mg PO 2144: Ativan Tab 1 mg SL 2303: Ativan Tav 1 mg SL 2310: I reevaluated the patient who is feeling better after the Ativan. His thoughts are more organized and he would like to go home. Case management will follow up with him and his psychiatrist tomorrow. patient safety manager will also contact his family. Discussed results and discharge instructions: He verbalized understanding and agreement. The patient is ready for discharge. Medical Decision Prior records/ancillary studies reviewed. Triage Nursing notes reviewed and agree them. The patient's history was concerning for possible psychiatric disturbance. Differential diagnosis: Etiologies such as thought disorder, mood disorder, infection, hypoglycemia, electrolyte abnormalities, cardiac sources, intracerebral event, toxicologic, neurologic, as well as others were entertained. Physical examination: The physical examination was performed as above and was completely benign. No emergent medical pathologies were noted. ER treatment provided: The patient was given his evening hydroxyzine, Depakote, and Seroquel Oral Ativan On reassessment the patient felt better. His thoughts are more clear. The patient felt more relaxed. He is not suicidal or homicidal. Diagnostic interpretation by me: The labs revealed an unremarkable CBC and chemistry panel. Tylenol, salicylate and alcohol levels unremarkable. Imaging studies: Deferred The patient was initially dispensing disorganized thought. He has a history of the same. He also has some insomnia as he has not been sleeping for the last 48 hours. I believe this was exacerbating issue. After his evening medications and a dose of Ativan and the patient was observed. Blood work was unremarkable. Case management did meet with the patient. He was referred to the [facility] initially. The patient then changed his mind and felt like he wanted to go home so that he could be close to family and in his own environment. His thoughts are more clear and organized. He is not suicidal or homicidal. As there is no grounds for 302 commitment this was felt to be reasonable. Case management will follow-up with the patient tomorrow. They will contact his psychiatrist office in the morning. The patient does have a follow-up set with psychiatry. If he worsens in any way he will come back to the emergency department. The patient was given a dose of the Ativan to go home with. He will take this prior to going to bed in order to help him sleep as the insomnia is likely worsening his underlying psychiatric issues.I gave my usual and customary discussion regarding this issue. By the evaluation outlined above emergent etiologies such as infection, hypoglycemia, electrolyte abnormalities, cardiac sources, intracerebral event, toxicologic, neurologic,as well as others were deemed relatively unlikely. It appears the patient is dealing with a psychiatric disturbance. The patient was informed about the findings as listed above. All questions were answered and he was pleased with the treatment. Return instructions were outlined and the patient was discharged in stable condition. Outpatient prescription management: Ativan sublingual 1 tonight Referral: The patient was referred back to his psychiatrist and primary care physician for follow-up for a recheck of the current condition. Impression Primary Impression: Thought disorder Additional Impression: Insomnia Scribe Attestation The scribe's documentation has been prepared under my direction and personally reviewed by me in its entirety. I confirm that the note above accurately reflects all work, treatment, procedures, and medical decision making performed by me. Departure Information Dispostion Home / Self-Care Referrals No Doctor, Assigned (PCP) Forms HOME CARE DOCUMENTATION FORM, IMPORTANT VISIT INFORMATION Patient Instructions My [facility] Additional Instructions PSYCHIATRIC INSTRUCTIONS: Take one Ativan when you return home to help with sleep. Continue your current medications. Return to the ER for severe anxiety or depression, thoughts of hurting yourself or others, inability to function, hallucinations, worsening of your condition, or as needed. Follow up with outpatient services as scheduled with your psychiatry/mental health. Follow up with your primary care physician this week for a recheck of your current condition and continued care. Problem Qualifiers
== END 2017-03-26 23:13 | disposition home or self-care (01) ==
LOC: C.EDB 18:38 → C.EDA 23:13
DX: F22 Delusional disorders (principal); G47.00 Insomnia, unspecified; F31.9 Bipolar disorder, unspecified; F20.9 Schizophrenia, unspecified; R73.9 Hyperglycemia, unspecified; E78.5 Hyperlipidemia, unspecified; E66.9 Obesity, unspecified; Z83.3 Family history of diabetes mellitus; F17.210 Nicotine dependence, cigarettes, uncomplicated; Z79.899 Other long term (current) drug therapy

== ENCOUNTER → 2017-06-14 | Outpatient (CLI) | payer OTHER ==
[~2017-06-14] MED LIST changes: -BENZ-89 PO; +CGN1 PO
[2017-06-14 10:34] LABS: BASO % 0.6 %; BASO ABS # 0.03 K/uL (0-0.2); COMPLETE YES; EOS % 2.9 %; HEMATOCRIT 45.4 % (42-52); IG% 0.8 %; LYMPH % 38.5 %; LYMPH ABS # 1.88 K/uL (1.2-3.4); MEAN CELL VOLUME 88.3 fL (80-100); MEAN CORPUSCULAR HEMOGLOBIN 28.8 pg (25-34); MEAN CORPUSCULAR HGB CONC 32.6 g/dl (32-36); MEAN PLATELET VOLUME 11.2 fL (7.4-10.4); MONO % 12.9 %; NEUT % 44.3 %; PLATELET COUNT 179 K/uL (130-400); RED BLOOD COUNT 5.14 M/uL (4.7-6.1); WHITE BLOOD COUNT 4.88 K/uL (4.8-10.8)
[2017-06-14 10:45] LABS: ALT/SGPT 59 U/L (12-78); BLOOD UREA NITROGEN 12 mg/dl (7-18); BUN/CREATININE RATIO 13.8 (10-20); CALCIUM 8.6 mg/dl (8.5-10.1); CARBON DIOXIDE 27 mmol/L (21-32); CHLORIDE 107 mmol/L (98-107); CHOLESTEROL 238 mg/dl (0-200); GLUCOSE 105 mg/dl (70-99); POTASSIUM 4.2 mmol/L (3.5-5.1); SODIUM 139 mmol/L (136-145)
[2017-06-14 10:56] LABS: ALB/GLOB RATIO 1.3 (0.9-2); ALKALINE PHOSPHATASE 39 U/L (45-117); AST/SGOT 20 U/L (15-37); CHOLESTEROL/HDL RATIO 6.6; HDL CHOLESTEROL 36 mg/dl; TRIGLYCERIDES 519 mg/dl (0-150)
== END | disposition home or self-care (01) ==
LOC: C.LAB 08:07
PROVIDERS: ATTEND Physician Assistant
DX: Z51.81 Encounter for therapeutic drug level monitoring (principal); Z79.899 Other long term (current) drug therapy

== ENCOUNTER → 2017-09-26 | Outpatient (CLI) | payer OTHER ==
[~2017-09-26] MED LIST changes: +BENZ-89 PO; -CGN1 PO
[2017-09-26 15:31] LABS: BASO % 0.8 %; BASO ABS # 0.06 K/uL (0-0.2); COMPLETE YES; EOS % 2.1 %; HEMATOCRIT 44.1 % (42-52); IG% 0.8 %; LYMPH % 35.1 %; LYMPH ABS # 2.52 K/uL (1.2-3.4); MEAN CELL VOLUME 88.7 fL (80-100); MEAN CORPUSCULAR HEMOGLOBIN 30.6 pg (25-34); MEAN CORPUSCULAR HGB CONC 34.5 g/dl (32-36); MEAN PLATELET VOLUME 10.8 fL (7.4-10.4); MONO % 11.1 %; NEUT % 50.1 %; PLATELET COUNT 208 K/uL (130-400); RED BLOOD COUNT 4.97 M/uL (4.7-6.1); WHITE BLOOD COUNT 7.18 K/uL (4.8-10.8)
[2017-09-26 16:00] LABS: ALT/SGPT 97 U/L (12-78); BLOOD UREA NITROGEN 16 mg/dl (7-18); BUN/CREATININE RATIO 15.2 (10-20); CALCIUM 9.7 mg/dl (8.5-10.1); CARBON DIOXIDE 30 mmol/L (21-32); CHLORIDE 98 mmol/L (98-107); CREATININE 1.03 mg/dl (0.60-1.40); GLUCOSE 106 mg/dl (70-99); SODIUM 137 mmol/L (136-145)
[2017-09-26 16:03] LABS: ALB/GLOB RATIO 1.2 (0.9-2); ALKALINE PHOSPHATASE 46 U/L (45-117); AST/SGOT 41 U/L (15-37)
== END | disposition home or self-care (01) ==
LOC: C.LAB 14:19
PROVIDERS: ATTEND Nurse Practitioner Adult Health
DX: R53.83 Other fatigue (principal); I10 Essential (primary) hypertension; K92.1 Melena

== ENCOUNTER → 2017-10-23 | Outpatient (CLI) | payer OTHER ==
[2017-10-23 10:01] LABS: ALT/SGPT 63 U/L (12-78); AST/SGOT 20 U/L (15-37); BLOOD UREA NITROGEN 14 mg/dl (7-18); CALCIUM 9.1 mg/dl (8.5-10.1); CARBON DIOXIDE 26 mmol/L (21-32); CHLORIDE 100 mmol/L (98-107); CREATININE 0.98 mg/dl (0.60-1.40); GLUCOSE 172 mg/dl (70-99); POTASSIUM 4.4 mmol/L (3.5-5.1); SODIUM 135 mmol/L (136-145)
[2017-10-23 10:11] LABS: ALB/GLOB RATIO 1.3 (0.9-2); ALKALINE PHOSPHATASE 47 U/L (45-117)
== END | disposition home or self-care (01) ==
LOC: C.LAB 08:59
PROVIDERS: ATTEND Nurse Practitioner Adult Health
DX: E78.1 Pure hyperglyceridemia (principal); R94.6 Abnormal results of thyroid function studies; R79.89 Other specified abnormal findings of blood chemistry

== ENCOUNTER → 2017-10-30 | Outpatient (CLI) | payer OTHER ==
[~2017-10-30] MED LIST changes: +CETI10TA84 PO; +GLC/500 PO; +GLC500 PO; +HYDR-5688 PO; +LISI-730 PO; +LISI10TA PO; +LTD/40 PO; +NICO21DI4 TD; +PALI156I IM; +PROP40TA5 PO; +RISP12.5 INJ; +RISP1TAB68 PO; +RISPERIDONE MICROSPHERES IM; +RSP1 PO; +RSP2 PO; +RSPI25 INJ; +WLL100 PO; +WLLSR150 PO
[2017-10-31 06:22] LABS: HEMOGLOBIN A1C 5.8 % (4.5-5.6)
== END | disposition home or self-care (01) ==
LOC: C.LAB 16:05
PROVIDERS: ATTEND Nurse Practitioner Adult Health
DX: R73.9 Hyperglycemia, unspecified (principal)

== ENCOUNTER → 2017-11-26 | Outpatient (CLI) | payer OTHER ==
[~2017-11-26] MED LIST changes: -CETI10TA84 PO; -GLC/500 PO; -GLC500 PO; -HYDR-5688 PO; -LISI-730 PO; -LISI10TA PO; -LTD/40 PO; -NICO21DI4 TD; -PALI156I IM; -PROP40TA5 PO; -RISP12.5 INJ; -RISP1TAB68 PO; -RISPERIDONE MICROSPHERES IM; -RSP1 PO; -RSP2 PO; -RSPI25 INJ; -WLL100 PO; -WLLSR150 PO
[2017-11-27 14:56] LABS: MICROSOMAL AB <1 IU/ML (<9)
== END | disposition home or self-care (01) ==
LOC: C.LAB 08:42
PROVIDERS: ATTEND Physician Assistant
DX: R94.6 Abnormal results of thyroid function studies (principal); R73.03 Prediabetes

== ENCOUNTER → 2017-12-26 | Outpatient (CLI) | payer OTHER | END | disposition home or self-care (01) | LOC: C.LAB 17:28 | PROVIDERS: ATTEND Nurse Practitioner Adult Health | DX: I10 Essential (primary) hypertension (principal) ==

== ENCOUNTER → 2017-12-31 | Outpatient (CLI) | payer OTHER ==
[2017-12-31 12:32] LABS: BLOOD UREA NITROGEN 10 mg/dl (7-18); CALCIUM 9.6 mg/dl (8.5-10.1); CARBON DIOXIDE 29 mmol/L (21-32); CREATININE 0.91 mg/dl (0.60-1.40); GLUCOSE 104 mg/dl (70-99); POTASSIUM 4.3 mmol/L (3.5-5.1); SODIUM 133 mmol/L (136-145)
== END | disposition home or self-care (01) ==
LOC: C.LAB 10:39
PROVIDERS: ATTEND Nurse Practitioner Adult Health
DX: I10 Essential (primary) hypertension (principal)

== ENCOUNTER 2018-03-07 13:10 | Emergency (ER) | payer OTHER ==
[~2018-03-07] VITALS: Ht 185.4 cm; Wt 169.7 kg
[2018-03-07 13:16] VITALS: TEMP 36.9; Ht 185.4 cm; Wt 169.7 kg
[2018-03-07] MEDS ORDERED: RISP1TAB68 PO (13:56)
[2018-03-07] MEDS ORDERED: GLC/500 PO (13:56)
[2018-03-07] MEDS ORDERED: LSN5 PO (13:56)
[2018-03-07] MEDS ORDERED: PROP40TA5 PO (13:56)
[2018-03-07] MEDS ORDERED: GLC500 PO (13:56)
[2018-03-07] MEDS ORDERED: RISP12.5 INJ (13:56)
[2018-03-07] MEDS ORDERED: RSP1 PO (13:56)
[2018-03-07] MEDS ORDERED: WLLSR150 PO (13:56)
[2018-03-07 14:11] LABS: BASO % 0.5 %; BASO ABS # 0.03 K/uL (0-0.2); EOS % 1.9 %; EOS ABS # 0.11 K/uL (0-0.5); HEMATOCRIT 42.7 % (42-52); IG# 0.02 K/uL (0.00-0.02); LYMPH % 30.9 %; LYMPH ABS # 1.83 K/uL (1.2-3.4); MEAN CELL VOLUME 86.6 fL (80-100); MEAN CORPUSCULAR HEMOGLOBIN 30.4 pg (25-34); MEAN CORPUSCULAR HGB CONC 35.1 g/dl (32-36); MEAN PLATELET VOLUME 10.4 fL (7.4-10.4); MONO % 7.8 %; MONO ABS # 0.46 K/uL (0.11-0.59); NEUT % 58.6 %; NEUT ABS # 3.47 K/uL (1.4-6.5); PLATELET COUNT 187 K/uL (130-400); RED CELL DISTRIBUTION WIDTH CV 13.2 % (11.5-14.5); RED CELL DISTRIBUTION WIDTH SD 41.7 fL (36.4-46.3); WHITE BLOOD COUNT 5.92 K/uL (4.8-10.8)
[2018-03-07 14:29] LABS: ALBUMIN 4.1 gm/dl (3.4-5.0); CALCIUM 9.1 mg/dl (8.5-10.1); CREATININE 0.94 mg/dl (0.60-1.40)
[2018-03-07 14:31] LABS: TOTAL PROTEIN 7.3 gm/dl (6.4-8.2)
[2018-03-07] MEDS ORDERED: KETOROLAC TROMETHAMINE 30 MG/ML VIAL IV STA (14:47)
--- NOTE | 2018-03-07 15:09 | DIAGNOSTIC IMAGING REPORT ---
ABDOMEN AND PELVIS CT WITHOUT CONTRAST CT DOSE: 1292.32 mGycm HISTORY: Acute periumbilical abdominal pain with concern for hernia umbilical hernia, ?incarcerated TECHNIQUE: Multiaxial CT images of the abdomen and pelvis were performed without contrast. A dose lowering technique was utilized adhering to the principles of ALARA. COMPARISON STUDY: None. FINDINGS: Lung bases are clear. Imaged inferior cardiac chambers are unremarkable. Hepatomegaly with hepatic steatosis. No intrahepatic biliary ductal dilation or focal hepatic mass lesions. Spleen, pancreas, gallbladder and adrenal glands appear unremarkable. Study is limited secondary to be moderately artifact from patient obesity. Portions of the anatomy outside the [id number]. Kidneys, ureters and bladder are within normal limits. Normal appearance of the aorta. No bulky adenopathy. No bowel obstruction or focal bowel wall thickening. The appendix appears normal. No mesenteric inflammatory changes or ascites. Fat filled periumbilical hernia is noted, diastases 3.2 cm with mild degree of stranding within the fat. No bowel extension into the hernia sac. Bones appear intact. IMPRESSION: 1. No acute intra-abdominal or intrapelvic abnormality identified. Normal appendix. 2. Moderate sized fat filled periumbilical hernia with associated inflammatory stranding suggests possible fat necrosis. No extension of bowel into the hernia sac. Correlate with clinical exam and patient symptoms. 3. Hepatomegaly with hepatic steatosis. Electronically signed by: Ricardo Burkett M.D. 03/07/2018 3:08 PM Dictated Date/Time: 03/07/2018 3:03 PM
--- NOTE | 2018-03-07 16:54 | Medical Consult ---
Consultation Date of Consultation: March 07, 2018. Attending Physician: Reason for Consultation: Incarcerated Umbilical Hernia, No bowel involvement History of Present Illness Mr. Anderson is a 32-year-old male with past medical history significant for bipolar disorder and paranoia who presents to [facility] ED for evaluation of umbilical pain x 3 days. Patient states that he noticed a small bulge in his umbilicus about 3 days ago after he developed some mild pain at the site. He reports that the pain then did go away. He states that the same pain returned early this AM causing him to report to [facility] who in turn told him to go to the ED to be evaluated. WBC within normal limits. ED Imaging- CT Abdomen and Pelvis w/o contrast illustrates- 1. No acute intra- abdominal or intrapelvic abnormality identified. Normal appendix. 2. Moderate sized fat filled periumbilical hernia with associated inflammatory stranding suggests possible fat necrosis. No extension of bowel into the hernia sac. Correlate with clinical exam and patient symptoms. 3. Hepatomegaly with hepatic steatosis. Currently, patient is resting comfortably in room- patient received 1 dose of Toradol (10mg) at 15:02. He reports that the abdominal pain that brought him to ED has resolved. He reports that he is hungry. Denies nausea or vomiting. Denies constipation or diarrhea. Denies blood in stool. Past Medical/Surgical History Medical Problems: (1) Bipolar disorder Status: Acute (2) Paranoia Status: Acute Family History Diabetes mellitus (Paternal grandfather) No pertinent family history Social History Smoking Status: Current Some Day Smoker Drug Use: none Marital Status: single Housing Status: lives with roommate Occupation Status: unemployed Allergies Coded Allergies: Aminoglycosides (Verified Allergy, Unknown, 03/07/18) Neomycin (Verified Allergy, Unknown, 03/07/18) Review of Systems Constitutional: No fever, No chills, No sweats Abdomen: No pain, No nausea, No vomiting, No diarrhea, No constipation, No GI bleeding Genitourinary - Male: No hematuria, No dysuria Physical Exam Date Time Temp Pulse Resp B/P (MAP) Pulse Ox O2 Delivery O2 Flow Rate FiO2 03/07/18 15:30 106 22 111/71 96 Room Air 03/07/18 15:19 107 17 94 Room Air 03/07/18 15:04 99 19 96 Room Air 03/07/18 15:03 97 18 117/63 97 Room Air 03/07/18 14:17 99 03/07/18 13:16 36.9 103 20 137/90 96 Room Air General Appearance: WD/WN, no apparent distress, + obese Head: normocephalic, atraumatic Abdomen/GI: normal bowel sounds, non tender, soft, + pertinent finding ( reducible umbilical hernia ) Laboratory Results Last 24 Hours Test 03/07/18 13:25 03/07/18 13:55 Urine Color YELLOW Urine Appearance CLEAR Urine pH 8.0 Urine Specific [place] 1.013 Urine Protein NEG Urine Glucose (UA) NEG Urine Ketones NEG Urine Occult Blood NEG Urine Nitrite NEG Urine Bilirubin NEG Urine Urobilinogen NEG Urine Leukocyte Esterase NEG White Blood Count 5.92 K/uL Red Blood Count 4.93 M/uL Hemoglobin 15.0 g/dL Hematocrit 42.7 % Mean Corpuscular Volume 86.6 fL Mean Corpuscular Hemoglobin 30.4 pg Mean Corpuscular Hemoglobin Concent 35.1 g/dl Platelet Count 187 K/uL Mean Platelet Volume 10.4 fL Neutrophils (%) (Auto) 58.6 % Lymphocytes (%) (Auto) 30.9 % Monocytes (%) (Auto) 7.8 % Eosinophils (%) (Auto) 1.9 % Basophils (%) (Auto) 0.5 % Neutrophils # (Auto) 3.47 K/uL Lymphocytes # (Auto) 1.83 K/uL Monocytes # (Auto) 0.46 K/uL Eosinophils # (Auto) 0.11 K/uL Basophils # (Auto) 0.03 K/uL RDW Standard Deviation 41.7 fL RDW Coefficient of Variation 13.2 % Immature Granulocyte % (Auto) 0.3 % Immature Granulocyte # (Auto) 0.02 K/uL Sodium Level 139 mmol/L Potassium Level 4.0 mmol/L Chloride Level 106 mmol/L Carbon Dioxide Level 25 mmol/L Anion Gap 8.0 mmol/L Blood Urea Nitrogen 8 mg/dl Creatinine 0.94 mg/dl Est Creatinine Clear Calc Drug Dose 183.1 ml/min Estimated GFR () 123.0 Estimated GFR (Non- 106.1 BUN/Creatinine Ratio 8.1 Random Glucose 102 mg/dl Calcium Level 9.1 mg/dl Total Bilirubin 0.3 mg/dl Direct Bilirubin 0.1 mg/dl Aspartate Amino Transf (AST/SGOT) 44 U/L Alanine Aminotransferase (ALT/SGPT) 117 U/L Alkaline Phosphatase 41 U/L Total Protein 7.3 gm/dl Albumin 4.1 gm/dl Lipase 95 U/L Valproic Acid (Depakene) Level 24 mcg/ml Assessment & Plan 32-year-old male with CT scan confirmed moderate sized fat filled periumbilical hernia with associated inflammatory stranding suggests possible fat necrosis. No extension of bowel into the hernia. Patient is currently asymptomatic. Afebrile. WBC within normals limits. Discussed with patient that hernia will need to be repaired. Patient would like to be discharged and to follow-up with Dr Perez in the [facility]. It is reasonable to have hernia repair done as an outpatient. Reviewed hernia repair with patient including risks of procedure. Return precautions reviewed with patient. Patient to follow-up with Dr. Perez at [facility]- clinic will contact patient on 03/09/2018 to arrange follow-up.
[2018-03-07 17:28] VITALS: BP 108/64; PULSE 75; O2SAT 97
--- NOTE | 2018-03-07 20:29 | EMERGENCY ROOM VISIT NOTE ---
History Report prepared by Addy: Kvng Eller Under the Supervision of: Dr. Chalo Gonzalez M.D. First contact with patient: 13:23 Chief Complaint: ABDOMINAL PAIN Stated Complaint: ABD PAIN Nursing Triage Summary: pt reports abd pain at umbilicus started 3 days ago does not radiate is tender to touch. no n/v/c/ pt went to [facility] sent here for eval. pt reports having diarrhea and dark colored stools pt reports being on pysch meds and has scattered thoughts and unsure of exact day sx started. states he "journals alot" thinks he took tylenol or motrin but could have been depakote. pt reprots he was sitting in waiting area earlier and pain went away after using bathroom so he left but then pain came back and thats when he went to [facility]. pt thought process does not seem to be clear thoughts are all over. History of Present Illness The patient is a 32 year old male with a history of bipolar disorder and schizophrenia who presents to the Emergency Room via EMS from [email or web address] with complaints of intermittent abdominal pain around the umbilicus that started around a few days ago. He states that he came here earlier today, and had a bowel movement in the waiting room which relieved the pain, so he went home, but the pains came back and he went to [email or web address], who sent the patient here for evaluation. He says that he has been having black bowel movements over the past few days. The patient notes that he has been taking Ibuprofen for his pain. The patient says that yesterday he pushed his umbilical bump back in which relieved the pain for a while. He estimates that he has been taking 2 to 4 pills every 8 to 12 hours. He notes that he is on Depakote. Pt denies LOC, headache, fevers, chills, diaphoresis, visual changes, neck pain, chest pain, breathing difficulties, nausea, vomiting, back pain, urinary symptoms, numbness , weakness, lymphadenopathy, rash, SI, HI or other complaints. Source of History: patient Onset: A few days ago Position: abdomen Symptom Intensity: sent in due to concern from [facility] Quality: other (pain) Timing: intermittent Modifying Factors (Relieving): other (pushing umbilical area back in) Note: Associated symptoms: Bump around umbilicus. Black stools. Review of Systems See HPI for pertinent positives and negatives. A total of ten systems were reviewed and were otherwise negative. Past Medical & Surgical Medical Problems: (1) History of bipolar disorder (2) History of schizophrenia (3) Hyperglycemia (4) Hyperlipidemia (5) Nicotine dependence (6) Obesity (7) Past Psych Meds (8) Psychosis (9) Schizoaffective disorder, bipolar type Family History Diabetes mellitus (Paternal grandfather) No pertinent family history Social History Smoking Status: Current Some Day Smoker Alcohol Use: occasionally Drug Use: none Marital Status: single Housing Status: lives with roommate Occupation Status: unemployed Current/Historical Medications Scheduled Bupropion HCl (Bupropion HCl Sr), 1 TAB PO DAILY Divalproex Sodium (Depakote Etended-Release), 500 MG PO DAILY Divalproex Sodium (Depakote Er), 2 TAB PO HS Hydroxyzine Hcl (Atarax), 50 MG PO BID Lisinopril (Lisinopril), 1 TAB PO DAILY Metformin HCl (Metformin HCl), 1 TAB PO QAM Metformin Hcl (Glucophage), 2 TAB PO QPM Propranolol Hcl (Propranolol Hcl), 1 TAB PO BID Risperidone (Risperidone), 1 MG PO QAM Risperidone (Risperdal), 2 MG PO QPM Risperidone Microspheres (Risperdal Consta), 1 DOSE INJ Q2WK Scheduled PRN Benztropine Mesylate (Cogentin), 1 MG PO TID PRN for PRN Allergies Coded Allergies: Aminoglycosides (Verified Allergy, Unknown, 03/07/18) Neomycin (Verified Allergy, Unknown, 03/07/18) Physical Exam Vital Signs Date Time Temp Pulse Resp B/P (MAP) Pulse Ox O2 Delivery O2 Flow Rate FiO2 03/07/18 17:28 75 16 108/64 97 03/07/18 15:30 106 22 111/71 96 Room Air 03/07/18 15:19 107 17 94 Room Air 03/07/18 15:04 99 19 96 Room Air 03/07/18 15:03 97 18 117/63 97 Room Air 03/07/18 14:17 99 03/07/18 13:16 36.9 103 20 137/90 96 Room Air Physical Exam GENERAL: Awake, alert, uncomfortable-appearing, in no distress HENT: Normocephalic, atraumatic. Oropharynx unremarkable. EYES: Normal conjunctiva. Sclera non-icteric. NECK: Supple. No nuchal rigidity. FROM. No masses. RESPIRATORY: Clear to auscultation. No wheezes. No rales. Normal respiratory effort. CARDIAC: Normal rate. Normal rhythm. No murmurs. No rubs. Extremities warm and well perfused. Pulses equal. No JVD. GI: Umbilical hernia which is tender. No rebound or guarding. RECTAL: Deferred. MUSCULOSKELETAL: Atraumatic. Chest examination reveals no tenderness. The back is symmetrical on inspection without obvious abnormality. There is no CVA tenderness to palpation. No joint edema. LOWER EXTREMITIES: Calves are equal size bilaterally and non-tender. No edema. No discoloration. NEURO: Normal sensorium. No sensory or motor deficits noted. SKIN: No rash or jaundice noted. Medical Decision & Procedures ER Provider Diagnostic Interpretation: CT: Radiology results as stated below per my review and radiologist interpretation ABDOMEN AND PELVIS CT WITHOUT CONTRAST CT DOSE: 1292.32 mGycm HISTORY: Acute periumbilical abdominal pain with concern for hernia umbilical hernia, ?incarcerated TECHNIQUE: Multiaxial CT images of the abdomen and pelvis were performed without contrast. A dose lowering technique was utilized adhering to the principles of ALARA. COMPARISON STUDY: None. FINDINGS: Lung bases are clear. Imaged inferior cardiac chambers are unremarkable. Hepatomegaly with hepatic steatosis. No intrahepatic biliary ductal dilation or focal hepatic mass lesions. Spleen, pancreas, gallbladder and adrenal glands appear unremarkable. Study is limited secondary to be moderately artifact from patient obesity. Portions of the anatomy outside the [id number]. Kidneys, ureters and bladder are within normal limits. Normal appearance of the aorta. No bulky adenopathy. No bowel obstruction or focal bowel wall thickening. The appendix appears normal. No mesenteric inflammatory changes or ascites. Fat filled periumbilical hernia is noted, diastases 3.2 cm with mild degree of stranding within the fat. No bowel extension into the hernia sac. Bones appear intact. IMPRESSION: 1. No acute intra-abdominal or intrapelvic abnormality identified. Normal appendix. 2. Moderate sized fat filled periumbilical hernia with associated inflammatory stranding suggests possible fat necrosis. No extension of bowel into the hernia sac. Correlate with clinical exam and patient symptoms. 3. Hepatomegaly with hepatic steatosis. Electronically signed by: Ricardo Burkett M.D. 03/07/2018 3:08 PM Dictated Date/Time: 03/07/2018 3:03 PM Laboratory Results 03/07/18 13:55 Red Blood Count 4.93, Mean Corpuscular Volume 86.6, Mean Corpuscular Hemoglobin 30.4, Mean Corpuscular Hemoglobin Concent 35.1, Mean Platelet Volume 10.4, Neutrophils (%) (Auto) 58.6, Lymphocytes (%) (Auto) 30.9, Monocytes (%) (Auto) 7.8, Eosinophils (%) (Auto) 1.9, Basophils (%) (Auto) 0.5, Neutrophils # (Auto) 3.47, Lymphocytes # (Auto) 1.83, Monocytes # (Auto) 0.46, Eosinophils # (Auto) 0.11, Basophils # (Auto) 0.03 03/07/18 13:55 Test 03/07/18 13:25 03/07/18 13:55 Urine Color YELLOW Urine Appearance CLEAR (CLEAR) Urine pH 8.0 (4.5-7.5) Urine Specific [place] 1.013 (1.000-1.030) Urine Protein NEG (NEG) Urine Glucose (UA) NEG (NEG) Urine Ketones NEG (NEG) Urine Occult Blood NEG (NEG) Urine Nitrite NEG (NEG) Urine Bilirubin NEG (NEG) Urine Urobilinogen NEG (NEG) Urine Leukocyte Esterase NEG (NEG) White Blood Count 5.92 K/uL (4.8-10.8) Red Blood Count 4.93 M/uL (4.7-6.1) Hemoglobin 15.0 g/dL (14.0-18.0) Hematocrit 42.7 % (42-52) Mean Corpuscular Volume 86.6 fL (80-100) Mean Corpuscular Hemoglobin 30.4 pg (25-34) Mean Corpuscular Hemoglobin Concent 35.1 g/dl (32-36) Platelet Count 187 K/uL (130-400) Mean Platelet Volume 10.4 fL (7.4-10.4) Neutrophils (%) (Auto) 58.6 % Lymphocytes (%) (Auto) 30.9 % Monocytes (%) (Auto) 7.8 % Eosinophils (%) (Auto) 1.9 % Basophils (%) (Auto) 0.5 % Neutrophils # (Auto) 3.47 K/uL (1.4-6.5) Lymphocytes # (Auto) 1.83 K/uL (1.2-3.4) Monocytes # (Auto) 0.46 K/uL (0.11-0.59) Eosinophils # (Auto) 0.11 K/uL (0-0.5) Basophils # (Auto) 0.03 K/uL (0-0.2) RDW Standard Deviation 41.7 fL (36.4-46.3) RDW Coefficient of Variation 13.2 % (11.5-14.5) Immature Granulocyte % (Auto) 0.3 % Immature Granulocyte # (Auto) 0.02 K/uL (0.00-0.02) Anion Gap 8.0 mmol/L (3-11) Est Creatinine Clear Calc Drug Dose 183.1 ml/min Estimated GFR () 123.0 Estimated GFR (Non- 106.1 BUN/Creatinine Ratio 8.1 (10-20) Calcium Level 9.1 mg/dl (8.5-10.1) Total Bilirubin 0.3 mg/dl (0.2-1) Direct Bilirubin 0.1 mg/dl (0-0.2) Aspartate Amino Transf (AST/SGOT) 44 U/L (15-37) Alanine Aminotransferase (ALT/SGPT) 117 U/L (12-78) Alkaline Phosphatase 41 U/L (45-117) Total Protein 7.3 gm/dl (6.4-8.2) Albumin 4.1 gm/dl (3.4-5.0) Lipase 95 U/L (73-393) Valproic Acid (Depakene) Level 24 mcg/ml (50-100) Laboratory results reviewed by me Medications Administered Medications (Trade) Dose Ordered Sig/Crystal Route Start Time Stop Time Status Last Admin Dose Admin Ketorolac Tromethamine (Toradol Inj) 10 mg NOW STAT IV 03/07/18 14:47 03/07/18 14:48 DC 03/07/18 15:02 10 MG ED Course 1337: The patient was evaluated in room A12B. A complete history and physical exam was performed. 1447: Toradol Inj 10 mg IV. 1500: I reevaluated and updated the patient. 1550: I discussed the patient with Carolyn Cates PA-C for Dr. Perez ([facility] general surgery) - she will come talk to the patient. 1653: I reevaluated the patient and he does not want to have surgery at this time. He reduced his own hernia in the room. He will follow-up with surgery this week. Discussed results and discharge instructions: he verbalized understanding and agreement. The patient is ready for discharge. Medical Decision Prior records/ancillary studies reviewed. Triage Nursing notes reviewed and agree them. The patient's history was concerning for abdominal pain. Differential diagnosis: Etiologies such as incarcerated hernia, strangulate hernia, appendicitis, diverticulitis, PUD, biliary pathology, UTI, pancreatitis, obstruction, mesenteric ischemia, aortic pathology, infections, inflammatory bowel disease, renal colic, as well as others were entertained. Physical examination findings: As above. ER treatment provided: 3 total On reassessment the patient felt better. Diagnostics interpreted by me: The labs revealed an unremarkable CBC and chemistry panel. Mild elevation of LFTs which is not significantly different than the prior. Valproic acid level nontoxic. Imaging studies: CAT scan as above Consultation: A consultation was placed with the general surgery team decay control operator. The case was discussed and diagnostics were reviewed. The patient was evaluated in the ER for further treatment. The patient accidentally reduced his own hernia and was feeling much better. The patient did not want to have surgical treatment at this time. He wishes to follow-up as an outpatient. General surgery felt that this was reasonable. He was provided information for office follow-up. If he worsens in any way he will come back. By the evaluation outlined above emergent etiologies such as appendicitis, diverticulitis, PUD, biliary pathology, UTI, pancreatitis, obstruction, mesenteric ischemia, aortic pathology, infections, inflammatory bowel disease, renal colic, as well as others were deemed relatively unlikely. The patient was informed about the findings as listed above. All questions were answered and he was pleased with the treatment. Return instructions were outlined and the patient was discharged in stable condition. Referral: The patient was referred to general for a recheck of the current condition. Medication Reconcilliation Current Medication List: was personally reviewed by me Blood Pressure Screening Patient's blood pressure: Elevated blood pressure Blood pressure disposition: Elevated BP felt to be situational Consults Time Called: 1540 Consulting Physician: Carolyn Cates PA-C - [facility] general surgery Returned Call: 1550 I discussed the patient with Carolyn Cates PA-C for Dr. Perez ([facility] general surgery) - she will come talk to the patient. Impression Primary Impression: Incarcerated umbilical hernia Scribe Attestation The scribe's documentation has been prepared under my direction and personally reviewed by me in its entirety. I confirm that the note above accurately reflects all work, treatment, procedures, and medical decision making performed by me. Departure Information Dispostion Home / Self-Care Referrals Hammad Farooq III, CRNP (PCP) Kvng Perez D.O. Patient Instructions Hernia How Develops, My [facility] Additional Instructions ABDOMINAL PAIN INSTRUCTIONS: Ibuprofen(Motrin, Advil) may be used for fever or pain. Use 600mg every six hours as needed. Take with food. Avoid using more than 2400mg in a 24 hour period. Do not use 2400mg per day for more than three consecutive days without physician direction. Prolonged inappropriate use can lead to stomach upset or ulcers. (AND/OR) Acetaminophen(Tylenol) may be used for fever or pain. Use 1000mg every six hours as needed. Avoid using more than 4000mg in a 24 hour period. Rest and drink plenty of fluids as tolerated. Slow sips of water or sports drinks are recommended instead of large amounts all at once. Continue current medications. Once your stomach is settled start with a clear liquid diet (jello, soup broth, etc.) and then advance as tolerated. You should avoid full, heavy meals for about 24 hrs from the time your symptoms resolved. Return to the ER immediately for worsening or persistent hernia pain, abdominal pain, vomiting, fevers, chest pains, difficulty breathing, black or bloody stools, worsening of your condition, or as needed. Follow up with general surgery this week for a recheck regarding the hernia. The number is listed below under Dr. Perez.
== END 2018-03-07 17:28 | disposition home or self-care (01) ==
LOC: C.EDA 13:10
DX: K42.0 Umbilical hernia with obstruction, without gangrene (principal); F31.9 Bipolar disorder, unspecified; F20.9 Schizophrenia, unspecified; E78.5 Hyperlipidemia, unspecified; F17.210 Nicotine dependence, cigarettes, uncomplicated; E66.9 Obesity, unspecified; Z83.3 Family history of diabetes mellitus; Z79.899 Other long term (current) drug therapy; Z88.8 Allergy status to other drugs, medicaments and biological substances

== ENCOUNTER 2018-03-15 11:14 | Inpatient (IN) | payer OTHER ==
[~2018-03-15] VITALS: Ht 188 cm; Wt 166.2 kg
[~2018-03-15 11:14] MED LIST changes: -ARIP1INJ INJ; +GLC/500 PO; +GLC500 PO; +LSN5 PO; +PROP40TA5 PO; -QUET1TAB34 PO; +RISP12.5 INJ; +RISP1TAB68 PO; +RSP1 PO; -SRQ25 PO; +WLLSR150 PO
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
[2018-03-15 12:00] LABS: BASO % 0.5 %; BASO ABS # 0.03 K/uL (0-0.2); EOS % 1.7 %; HEMATOCRIT 41.9 % (42-52); HEMOGLOBIN 14.9 g/dL (14.0-18.0); IG# 0.02 K/uL (0.00-0.02); LYMPH % 31.6 %; MEAN CORPUSCULAR HEMOGLOBIN 30.6 pg (25-34); MEAN CORPUSCULAR HGB CONC 35.6 g/dl (32-36); MEAN PLATELET VOLUME 10.7 fL (7.4-10.4); MONO % 9.3 %; MONO ABS # 0.56 K/uL (0.11-0.59); NEUT % 56.6 %; PLATELET COUNT 166 K/uL (130-400); RED CELL DISTRIBUTION WIDTH SD 41.1 fL (36.4-46.3); WHITE BLOOD COUNT 6.01 K/uL (4.8-10.8)
[2018-03-15 12:29] LABS: ALBUMIN 3.8 gm/dl (3.4-5.0); CALCIUM 8.3 mg/dl (8.5-10.1); CREATININE 0.89 mg/dl (0.60-1.40); POTASSIUM 4.3 mmol/L (3.5-5.1)
[2018-03-15 12:38] LABS: TOTAL PROTEIN 7.1 gm/dl (6.4-8.2)
[2018-03-15] MEDS ORDERED: NURSING VERBAL MED ORDER ONE ×2 (14:00→14:45)
[2018-03-15] MEDS ORDERED: RISPERIDONE 1 MG TAB PO PRN (14:15)
[2018-03-15] MEDS ORDERED: hydrOXYzine HCL 25 MG TAB PO PRN ×2 (14:15→15:00)
[2018-03-15 14:33] VITALS: BP 128/72; PULSE 97; TEMP 37; BMI 47.0
[2018-03-15] MEDS ORDERED: ACETAMINOPHEN 325 MG TAB PO PRN (15:00)
[2018-03-15] MEDS ORDERED: NICOTINE POLACRILEX 2 MG GUM MT PRN (15:00)
[2018-03-15] MEDS ORDERED: MAGNESIUM HYDROXIDE SUSP 30 ML UDC PO PRN (15:00)
[2018-03-15] MEDS ORDERED: SODIUM CHLORIDE 0.65% NA SOLN 45 ML (OCEAN) PRN (15:00)
[2018-03-15] MEDS ORDERED: ALUMINUM/MAGNESIUM SUSP 30 ML UDC PO PRN (15:00)
[2018-03-15] MEDS: NICOTINE 21 MG/24 HR TDSY TD SCH (15:52)
[2018-03-15] MEDS: BENZTROPINE MESYLATE 1 MG TAB PO SCH (21:09)
[2018-03-15] MEDS: METFORMIN HCL 500 MG TAB PO SCH (21:09)
[2018-03-15] MEDS: PROPRANOLOL HCL 20 MG TAB PO SCH (21:12)
[2018-03-15] MEDS: DIVALPROEX 500 MG EXTENDED RELEASE TAB PO SCH (21:12)
[2018-03-15] MEDS: hydrOXYzine HCL 25 MG TAB PO SCH (21:13)
[2018-03-15] MEDS: RISPERIDONE 2 MG TAB PO SCH (21:13)
[2018-03-16 06:48] VITALS: BP_SYST 103; BP_SYST 123; BP_DIAS 75; BP_DIAS 84; PULSE 93; PULSE 95; TEMP 36.8
[2018-03-16 06:49] VITALS: O2SAT 96
[2018-03-16 06:51] VITALS: Ht 188 cm; Wt 166.2 kg
[2018-03-16] MEDS: METFORMIN HCL 500 MG TAB PO SCH ×2 (08:37→21:13)
[2018-03-16] MEDS: hydrOXYzine HCL 25 MG TAB PO SCH ×2 (08:37→21:27)
[2018-03-16] MEDS: BuPROPion SR 150 MG TABCR PO SCH (08:37)
[2018-03-16] MEDS: BENZTROPINE MESYLATE 1 MG TAB PO SCH ×2 (08:37→21:21)
[2018-03-16] MEDS: LISINOPRIL 5 MG TAB PO SCH (08:37)
[2018-03-16] MEDS: DIVALPROEX 500 MG EXTENDED RELEASE TAB PO SCH ×2 (08:38→21:25)
[2018-03-16] MEDS: RISPERIDONE 1 MG TAB PO SCH (08:38)
[2018-03-16] MEDS: PROPRANOLOL HCL 20 MG TAB PO SCH ×2 (08:38→21:25)
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
[2018-03-16] MEDS: NICOTINE 21 MG/24 HR TDSY TD SCH (13:12)
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
[2018-03-16] MEDS: RISPERIDONE 2 MG TAB PO SCH (21:28)
[2018-03-16 21:34] VITALS: BP 113/78; PULSE 98
[2018-03-17 06:30] VITALS: BP_SYST 106; BP_SYST 110; BP_DIAS 67; BP_DIAS 71; PULSE 89; PULSE 97; TEMP 36.2
[2018-03-17] MEDS: BENZTROPINE MESYLATE 1 MG TAB PO SCH ×2 (09:33→21:07)
[2018-03-17] MEDS: DIVALPROEX 500 MG EXTENDED RELEASE TAB PO SCH ×2 (09:34→21:07)
[2018-03-17] MEDS: METFORMIN HCL 500 MG TAB PO SCH ×2 (09:34→21:07)
[2018-03-17] MEDS: PROPRANOLOL HCL 20 MG TAB PO SCH ×2 (09:35→21:08)
[2018-03-17] MEDS: RISPERIDONE 1 MG TAB PO SCH (09:35)
[2018-03-17] MEDS: BuPROPion SR 150 MG TABCR PO SCH (09:36)
[2018-03-17] MEDS: hydrOXYzine HCL 25 MG TAB PO SCH ×2 (09:36→21:10)
[2018-03-17] MEDS: LISINOPRIL 5 MG TAB PO SCH (09:36)
[2018-03-17] MEDS ORDERED: NURSING VERBAL MED ORDER ONE (10:00)
--- NOTE | 2018-03-17 10:15 | Psychiatric Progress Notes ---
Progress Note Date of Service March 17, 2018. Interval History Bonilla Anderson is a 32-year-old male with schizoaffective disorder bipolar type who lives in [place], was admitted voluntarily on March 15, 2018 at 13:56 after he was brought in by police for psychosis. Chief Complaint "Busy". Subjective Patient was seen & assessed interval progress reviewed with Nursing. Staff report he was paranoid in group, appeared very tense and anxious, and spent much of the day isolated in his room. He said he does not feel safe outside of the hospital, as he believes his neighbors are going into his apartment and taking his belongings. He remains tangential, jumping from topic to topic, and at times it is difficult to follow his train of thought. Staff contacted his blended case technician, who stated that he has been doing poorly for quite some time, and at baseline is paranoid. He had incorporated his case technician into his delusions, and had stopped meeting with her as he believed that a neighbor was listening to her through the rogers and pleasuring himself, even though that apartment is unoccupied. She stated that he had done well with [facility]'s services in the past, but was discharged as he was compliant with medications. She suggested a re-referral to them. On my assessment today, the patient is just finishing a meeting with his blunted case technician, who came into the hospital to see him. He states that he continues to improve, is feeling "good, better than I was before, happier, safer, not as paranoid." Sleep was disturbed by chronic back pain, for which he states Tylenol alone is not very effective. Agreed to trial of ibuprofen. He continues to report significant anxiety, is worried about his upcoming scheduled hernia surgery and whether he will be out in time to get it, and also his Risperdal Consta injection, which is scheduled for Friday. He is worried because the medication is at [facility], and because he has been in the hospital, he has not been able to pick it up. Although he thinks the Risperdal Consta has been more effective than the Abilify maintena he was on prior, he admits that he continues to be paranoid on a daily basis, thinking that people are "messing with me." He also hears auditory hallucinations at times, which he denies today, and cannot recall the last time he experienced them. We discussed a trial of Invega, with a plan to switch to Invega Sustenna long-acting injectable, and reviewed the differences between this medication and the Consta, as well as the risks, benefits, and side effects. He agreed to consider this, and requested information about the medication, which was provided. Review of Systems + Chronic back pain, denies GI symptoms, headache. Sleep Information Total Hours of Sleep: 7.25 Meal Information Percent of Breakfast Consumed: 100 Percent of Lunch Consumed: 100 Percent of Dinner Consumed: 100 Mental Status Exam During interview pt is: alert and oriented, cooperative Appearance: appropriately dressed, other (Obese, shoulderlength hair, seated in no acute distress.) Eye contact is: fair Motor behavior is: steady gait & station, psychomotor agitation (Restless, fidgeting, running his hands through his hair repeatedly.) Speech: other (Rapid rate, but less hyperverbal.) Affect: anxious (But reactive and appropriate, slightly brighter.) Mood is: other ("Good, better.") Thought process: tangential, looseness of associations Thought content: paranoid, delusions Suicidal thought are: denied Homicidal thoughts are: denied Hallucinations: visual (sees waves and shadows), denies auditory (Reports hearing voices, but cannot recall when this last occurred.) Cognition: language grossly intact, other (Memory and attention impaired by psychosis) Intelligence estimated to be: average Insight: severely impaired Judgement: severely impaired Impression 32-year-old single white male with schizoaffective disorder bipolar type who lives alone in [place] and is admitted voluntarily with worsening paranoia and disorganization. He has been continued on his home medications including Depakote, bupropion, benztropine, propranolol, and risperidone. His oral dose of risperidone was increased to 1 mg every morning and 2 mg nightly, and he is due for his constant shot on Friday. I have encouraged him to consider a trial of Invega Sustenna, as the risperidone has not been effective and he has continued to have psychotic symptoms. He agreed to consider it, and we will revisit tomorrow. If he agrees, would switch him from oral risperidone to oral Invega, and start the Sustenna loading injections immediately. Plan (1) Schizoaffective disorder, bipolar type 03/16 -reviewed records from [facility]; left a message with Yas Waterman to coordinate care and discuss his case. (Received call back from nursing staff that Yas is out until next Friday, and that per their available records, he has never been on Invega Sustenna). He was transitioned from Abilify Maintena and Seroquel to risperidone Consta 12.5mg q 2weeks and oral risperidone , although it is not clear to me why he is on such a low dose of the injection with overlapping oral medication. His next Consta injection is due 03/20/18, and will consider increasing it to 25 mg every 2 weeks, while continuing oral supplementation. In the interim, I will increase his oral risperidone to 1 mg in the morning and 2 mg at bedtime. Continue other reported home meds: Depakote 500mg qam and 1000mg HS, bupropion SR 150mg qAM, benztropine 1mg BID. - Depakote level was 15 at 11:48 AM yesterday. Consider rechecking a trough and titration of Depakote dose if needed. - Coordinate with Radha CROSS, and get collateral information -Per social work, patient has not been compliant with case management. - Fasting labs reviewed: 06/14/17 TG 519, cholesterol 238, LDL 116, and HDL 36. Hgb A1C 5.8 on 10/30/17, estimated ave. glucose of 120. Fasting glucose 121 on . 03/17 -symptoms are improving here, but collateral information from his blunted case technician indicates that his symptoms have not been well controlled in some time, and he admits to paranoia and auditory hallucinations, despite good compliance with the Risperdal Consta for the past 2 months. Suggested he consider a trial of Invega Sustenna, likely at a higher dose, given that he had a question of side effects on the higher dose of risperidone. We reviewed the risks, benefits, and side effects, and provided him with an up-to-date patient handout on the medication. He wanted to think about it, but if he is willing, he could be started immediately on Invega Sustenna loading injections, as he has already demonstrated tolerance of the risperidone. Would switch his oral risperidone to oral paliperidone, which could then be tapered off once he has stabilized. (2) Nicotine dependence Offer nicotine patch and gum prn for cravings. Provide smoking cessation education, and refer back to PCP. (3) Hyperglycemia Continue home dose of Metformin. (4) Obesity Consider dietary consult once less psychotic. Encourage exercise and healthy diet. Attempts to avoid medications with a high risk of weight gain. (5) Hypertension Continue home doses of lisinopril and propranolol. (6) Chronic back pain 03/17 -musculoskeletal, chronic, patient reports responds to ibuprofen. We will order 600 mg every 6 hours as needed while here. Encourage stretching, gentle exercise, use of heating pad as needed, and ongoing efforts at weight loss. Discharge / Aftercare Planning Primary Care Physician: Name: Dr Badillo Psychiatrist: Name: Yas Waterman PA-C, [facility] Therapist: Name: [facility] Security Incident Handler: Name: [facility] Visit Code E&M Code: 15076 Inventory Assets Strengths: Has outpatient providers, has housing, supportive family Needs: Improved symptom control, outpatient supports, techniques for managing paranoia Risk Factors Assessment Male: Yes : Yes /single/: Yes Higher / Fall in social status: No Health problems: Yes Mental Health Diagnoses: Yes Substance use disorders: No Previous attempt: No Family history of suicide: No Previous psychiatric stay: Yes Smoker: Yes Protective Factors Assessment Alevism beliefs: No : No Responsible for young children: No Employed: No Data Vital Signs Last 24 Hrs: Date Time Temp Pulse Resp B/P (MAP) Pulse Ox O2 Delivery O2 Flow Rate FiO2 03/17/18 06:30 36.2 89 16 110/71 97 106/67 03/16/18 21:34 98 113/78 Meds Administered Last 24 Hrs: Meds Administered (Past 24Hrs) Medications (Trade) Dose Ordered Sig/Crystal Route Start Time Stop Time Status Last Admin Dose Admin Risperidone (Risperdal Tab) 1 mg Q4H PRN PO 03/15/18 14:15 04/14/18 14:14 03/15/18 14:14 1 MG Hydroxyzine HCl (Vistaril Tab) 25 mg Q4H PRN PO 03/15/18 14:15 6/19/18 14:14 03/15/18 14:14 25 MG Nicotine (Nicoderm Cq 21MG Patch) 1 patch Q24H TD 03/15/18 15:00 04/14/18 14:59 03/16/18 13:12 1 PATCH Benztropine Mesylate (Cogentin Tab) 1 mg BID PO 03/15/18 22:00 04/14/18 21:59 03/17/18 09:33 1 MG Bupropion HCl (Wellbutrin-Sr Tab) 150 mg DAILY PO 03/16/18 09:00 04/15/18 08:59 03/17/18 09:36 150 MG Divalproex Sodium (Depakote Extended Rel Tab) 1,000 mg HS PO 03/15/18 22:00 04/14/18 21:59 03/16/18 21:25 1,000 MG Divalproex Sodium (Depakote Extended Rel Tab) 500 mg DAILY PO 03/16/18 09:00 04/15/18 08:59 03/17/18 09:34 500 MG Hydroxyzine HCl (Vistaril Tab) 50 mg BID PO 03/15/18 22:00 04/14/18 21:59 03/17/18 09:36 50 MG Lisinopril (Zestril Tab) 5 mg DAILY PO 03/16/18 09:00 04/15/18 08:59 03/17/18 09:36 5 MG Metformin HCl (Glucophage Tab) 500 mg DAILY PO 03/16/18 09:00 04/15/18 08:59 03/17/18 09:34 500 MG Metformin HCl (Glucophage Tab) 1,000 mg QPM PO 03/15/18 21:00 04/14/18 20:59 03/16/18 21:13 1,000 MG Propranolol HCl (Inderal Tab) 40 mg BID PO 03/15/18 22:00 04/14/18 21:59 03/17/18 09:35 40 MG Risperidone (Risperdal Tab) 1 mg DAILY PO 03/16/18 09:00 04/15/18 08:59 03/17/18 09:35 1 MG Risperidone (Risperdal Tab) 2 mg HS PO 03/15/18 22:00 04/14/18 21:59 03/16/18 21:28 2 MG
[2018-03-17] MEDS: IBUPROFEN 600 MG TAB PO PRN (10:24)
--- NOTE | 2018-03-17 10:27 | Medical Student: BHU Only ---
Psychiatric Progress Note IDENTIFYING INFOMATION: Pt is a 32 yo M who was brought to the ED by police with increased paranoia of people entering his apartment and siphoning gas from his car. He is on a 201 voluntary commitment. Currently he is continuing his outpt meds (psych - Risperdal, Wellbutrin, and Depakote). SUBJECTIVE: The patient was seen and assessed today, and progress was reviewed with nursing. The patient reports doing "well". Sleep was "okay" and noted to be 7.25 hours by staff. Pt reported that he was doing good this morning and did not receive any prn Vistaril for sleep last night. He did report having some difficulty sleeping due to his back and hip pain which he had complained about yesterday as well. This appears to be a chronic, ongoing problem for the patient. Pt attended some groups yesterday, and he said they went well. After dinner last night he became isolative and remained in his room. He continues to feel safe while being on the unit here but his mind is somewhere else thinking about what may be happening in his apartment which is concerning him. He was also still very concerned about the hernia repair that is supposed to be taking place on Friday and I told him that we are aware this situation. Pt expressed that he would consider switching from Risperdal to Invega Sustenna. ROS: Pt reports feeling well, sleeping okay, and good appetite MSE: Appearance is that of a casually dressed male who appears his stated age. The patient is generally cooperative with the interview. Eye contact is normal. Motor behavior is normal. Speech: normal volume and tone,fast rate,. Affect: expansive. Mood: "good". Thought process: tangential, FOI, KRISTEL Thought content: Delusions regarding his neighbor entering his apartmen, denied SI or HI Perception: reported hallucinations where he was seeing waves and clouds. Cognition: Language grossly intact, memory and attention impaired. Intelligence is estimated to be average. Insight is estimated to be severely impaired. Judgment is estimated to be severely impaired. ASSESSMENT: Pt is a 32 yo M who was brought to the ED by police with increased paranoia of people entering his apartment and siphoning gas from his car. He is on a 201 voluntary commitment. Currently he is continuing his outpt meds and feels safe in this unit but will consider recommended med change to Invega Sustenna. Still having paranoia and says his mind is somewhere else worrying about what might be happening outside the hospital. 1. Schizoaffective disorder bipolar type a. Continue outpt meds of Risperdal (1mg QAM and 2mg HS), Wellbutrin, Depakote. Consta injection due 03/20/18, consider increasing to 25mg q2wk or possibly trial of Invega Sustenna. b. Cogentin 1mg BID. c. Vistaril 25mg prn for anxiety and 50mg for insomnia d. q15 safety checks, encourage group participation, work on safety planning and coping skills. e. Coordinate/speak with Yas Waterman and Radha for more info 2. Hypertension a. Continue propranolol and lisinopril. 3. Hyperglycemia a. Continue metformin 4. Obesity a. Consider dietary consult when less psychotic 5. Nicotine Dependence a. Nicotine patches and gum prn 6. Aftercare Planning: a. ensure appropriate f/u appointment upon discharge to monitor 7. Medication Monitoring: a. Monitor FBS and lipid as atypical antipsychotic can have metabolic SE. Last checked - triglycerides 519 (06/14/17) cholesterol 238 (06/04/17) LDL 116 (06/04/17) A1c 5.8 (10/30/17) fasting glucose 121 (11/26/17) Date of Service: March 17, 2018.
[2018-03-17] MEDS: NICOTINE 21 MG/24 HR TDSY TD SCH (15:37)
[2018-03-17] MEDS: RISPERIDONE 2 MG TAB PO SCH (21:08)
[2018-03-17 21:53] VITALS: BP 108/76; PULSE 97
[2018-03-18 06:12] VITALS: BP_SYST 107; BP_SYST 108; BP_DIAS 75; BP_DIAS 78; PULSE 84; PULSE 91; TEMP 36.6
[2018-03-18] MEDS: BENZTROPINE MESYLATE 1 MG TAB PO SCH ×2 (08:37→21:03)
[2018-03-18] MEDS: DIVALPROEX 500 MG EXTENDED RELEASE TAB PO SCH ×2 (08:37→21:02)
[2018-03-18] MEDS: METFORMIN HCL 500 MG TAB PO SCH ×2 (08:38→21:02)
[2018-03-18] MEDS: PROPRANOLOL HCL 20 MG TAB PO SCH ×2 (08:39→21:03)
[2018-03-18] MEDS: RISPERIDONE 1 MG TAB PO SCH (08:40)
[2018-03-18] MEDS: hydrOXYzine HCL 25 MG TAB PO SCH ×2 (08:41→21:04)
[2018-03-18] MEDS: BuPROPion SR 150 MG TABCR PO SCH (08:41)
[2018-03-18 08:44] VITALS: BP 112/71; PULSE 83
[2018-03-18] MEDS: LISINOPRIL 5 MG TAB PO SCH (08:44)
--- NOTE | 2018-03-18 09:23 | Psychiatric Progress Notes ---
Progress Note Date of Service March 18, 2018. Interval History Bonilla Anderson is a 32-year-old male with schizoaffective disorder bipolar type who lives in [place], was admitted voluntarily on March 15, 2018 at 13:56 after he was brought in by police for psychosis. Chief Complaint "I'm doing good.". Subjective Patient was seen & assessed interval progress reviewed with Treatment Team. The staff report that Ricardo met with his rehabilitation case coordinator yesterday and that a referral to [facility] was made. He continues to have delusions, questioning whether his father is really his father. He refused all groups last evening and isolated in his room, although came out for meals. Today he is in his room , sitting in the chair with no lights on. He says that he is doing well, and reports that his thoughts are "clearer" since admission. He is thinking about getting out of the hospital saying that he has a lot to do. His conversation does not always make sense, initiating a conversation about people with mental illness being "set aside" meaning being discriminated against, then talks about journaling, but not having anything that people should read, trying to put his thoughts together. We reviewed yesterday's recommendations for Sustenna and he says that he has read the provided information and has lots of concerns about the side effects saying he already has a lot of them and doesn't want to risk more, but can't have a more directed conversation than that. He is aware that he is due for his Consta injection on Friday and will need to cancel that appt if still in the hospital. He rates his mood today 9/10. We talk about why he is isolating in his room, to which he says that he does not necessarily find the information helpful, has heard it before, and finds sitting for long periods uncomfortable to his back. He denies aud/vis hallucinations. Review of Systems Constitutional: No fever, No chills, No sweats, No weight loss, No weakness, No fatigue, No problem reported ENT: No hearing loss, No unusual epistaxis, No nasal symptoms, No sore throat, No tinnitus, No dental problems, No trouble swallowing, No problem reported Respiratory: No cough, No sputum, No wheezing, No shortness of breath, No dyspnea on exertion, No dyspnea at rest, No hemoptysis, No problem reported Cardiovascular: No chest pain, No orthopnea, No PND, No edema, No claudication , No palpitations, No problem reported Musculoskeletal: No joint pain, No muscle pain, No swelling, No calf pain, No problem reported Neurologic: No memory loss, No paralysis, No weakness, No numbness/tingling, No vertigo, No balance problems, No problem reported Psychiatric: + problem reported (rates mood 07/06) Integumentary: No rash, No itch, No new/changing skin lesions, No color change , No bleeding, No problem reported Sleep Information Total Hours of Sleep: 8.00 Meal Information Percent of Breakfast Consumed: 100 Percent of Lunch Consumed: 100 Percent of Dinner Consumed: 100 Mental Status Exam During interview pt is: alert and oriented, cooperative Appearance: appropriately dressed, other (Obese, shoulderlength hair, seated in no acute distress.) Eye contact is: good Motor behavior is: steady gait & station, psychomotor agitation (Restless, fidgeting, running his hands through his hair repeatedly.) Speech: other (at times jumbled) Affect: anxious Mood is: other ("Good") Thought process: tangential, looseness of associations Thought content: paranoid, delusions Suicidal thought are: denied Homicidal thoughts are: denied Hallucinations: visual (sees waves and shadows), denies auditory Cognition: language grossly intact, other (Memory and attention impaired by psychosis) Intelligence estimated to be: average Insight: impaired Judgement: impaired Impression Has declined the switch to Sustenna due to concerns for side effects. Is due for next Consta shot on Friday, which the hospital does not carry. Will need to make arrangements with an outside pharmacy. He uses [facility], so will have nursing inquire with them first. Plan (1) Schizoaffective disorder, bipolar type 03/16 -reviewed records from [facility]; left a message with Yas Guevara to coordinate care and discuss his case. (Received call back from nursing staff that Yas is out until next Friday, and that per their available records, he has never been on Invega Sustenna). He was transitioned from Abilify Maintena and Seroquel to risperidone Consta 12.5mg q 2weeks and oral risperidone , although it is not clear to me why he is on such a low dose of the injection with overlapping oral medication. His next Consta injection is due 03/20/18, and will consider increasing it to 25 mg every 2 weeks, while continuing oral supplementation. In the interim, I will increase his oral risperidone to 1 mg in the morning and 2 mg at bedtime. Continue other reported home meds: Depakote 500mg qam and 1000mg HS, bupropion SR 150mg qAM, benztropine 1mg BID. - Depakote level was 15 at 11:48 AM yesterday. Consider rechecking a trough and titration of Depakote dose if needed. - Coordinate with Radha CROSS, and get collateral information -Per social work, patient has not been compliant with case management. - Fasting labs reviewed: 06/14/17 TG 519, cholesterol 238, LDL 116, and HDL 36. Hgb A1C 5.8 on 10/30/17, estimated ave. glucose of 120. Fasting glucose 121 on . 03/17 -symptoms are improving here, but collateral information from his blunted rehabilitation case coordinator indicates that his symptoms have not been well controlled in some time, and he admits to paranoia and auditory hallucinations, despite good compliance with the Risperdal Consta for the past 2 months. Suggested he consider a trial of Invega Sustenna, likely at a higher dose, given that he had a question of side effects on the higher dose of risperidone. We reviewed the risks, benefits, and side effects, and provided him with an up-to-date patient handout on the medication. He wanted to think about it, but if he is willing, he could be started immediately on Invega Sustenna loading injections, as he has already demonstrated tolerance of the risperidone. Would switch his oral risperidone to oral paliperidone, which could then be tapered off once he has stabilized. 03/18 - Declines switch to Sustenna - Is due for Consta on Friday. If previous dose was 12. 5 mg., will need to increase to 25 mg. IM. Will need to make arrangements to obtain (2) Nicotine dependence Offer nicotine patch and gum prn for cravings. Provide smoking cessation education, and refer back to PCP. (3) Hyperglycemia Continue home dose of Metformin. (4) Obesity Consider dietary consult once less psychotic. Encourage exercise and healthy diet. Attempts to avoid medications with a high risk of weight gain. (5) Hypertension Continue home doses of lisinopril and propranolol. (6) Chronic back pain 03/17 -musculoskeletal, chronic, patient reports responds to ibuprofen. We will order 600 mg every 6 hours as needed while here. Encourage stretching, gentle exercise, use of heating pad as needed, and ongoing efforts at weight loss. Discharge / Aftercare Planning Primary Care Physician: Name: Dr Badillo Psychiatrist: Name: Yas Waterman PA-C, [facility] Therapist: Name: [facility] Meat Department Manager: Name: Radha Aceves [facility] Visit Code E&M Code: 02748 Inventory Assets Strengths: Has outpatient providers, has housing, supportive family Needs: Improved symptom control, outpatient supports, techniques for managing paranoia Risk Factors Assessment Male: Yes : Yes /single/: Yes Higher / Fall in social status: No Health problems: Yes Mental Health Diagnoses: Yes Substance use disorders: No Previous attempt: No Family history of suicide: No Previous psychiatric stay: Yes Smoker: Yes Protective Factors Assessment Taoist beliefs: No : No Responsible for young children: No Employed: No Data Vital Signs Last 24 Hrs: Date Time Temp Pulse Resp B/P (MAP) Pulse Ox O2 Delivery O2 Flow Rate FiO2 03/18/18 08:44 83 20 112/71 03/18/18 06:12 36.6 84 20 108/75 91 107/78 03/17/18 21:53 97 108/76 Meds Administered Last 24 Hrs: Meds Administered (Past 24Hrs) Medications (Trade) Dose Ordered Sig/Crystal Route Start Time Stop Time Status Last Admin Dose Admin Ibuprofen (Motrin Tab) 600 mg Q6H PRN PO 03/17/18 10:30 04/16/18 10:29 03/17/18 10:24 600 MG Lab Results Last 24 Hrs: 03/15/18 11:48 Red Blood Count 4.87, Mean Corpuscular Volume 86.0, Mean Corpuscular Hemoglobin 30.6, Mean Corpuscular Hemoglobin Concent 35.6, Mean Platelet Volume 10.7, Neutrophils (%) (Auto) 56.6, Lymphocytes (%) (Auto) 31.6, Monocytes (%) (Auto) 9.3, Eosinophils (%) (Auto) 1.7, Basophils (%) (Auto) 0.5, Neutrophils # (Auto) 3.40, Lymphocytes # (Auto) 1.90, Monocytes # (Auto) 0.56, Eosinophils # (Auto) 0.10, Basophils # (Auto) 0.03 03/15/18 11:48 Test 03/15/18 11:15 03/15/18 11:48 Urine Color YELLOW Urine Appearance CLEAR (CLEAR) Urine pH 6.5 (4.5-7.5) Urine Specific [place] 1.014 (1.000-1.030) Urine Protein NEG (NEG) Urine Glucose (UA) NEG (NEG) Urine Ketones NEG (NEG) Urine Occult Blood NEG (NEG) Urine Nitrite NEG (NEG) Urine Bilirubin NEG (NEG) Urine Urobilinogen NEG (NEG) Urine Leukocyte Esterase NEG (NEG) Urine Opiates Screen NEG (NEG) Urine Methadone, Qualitative NEG (NEG) Urine Barbiturates NEG (NEG) Urine Phencyclidine (PCP) Level NEG (NEG) Ur Amphetamine/Methamphetamine NEG (NEG) MDMA (Ecstasy) Screen POS (NEG) Urine Benzodiazepines Screen NEG (NEG) Urine Cocaine Metabolite NEG (NEG) Urine Marijuana (THC) NEG (NEG) White Blood Count 6.01 K/uL (4.8-10.8) Red Blood Count 4.87 M/uL (4.7-6.1) Hemoglobin 14.9 g/dL (14.0-18.0) Hematocrit 41.9 % (42-52) Mean Corpuscular Volume 86.0 fL (80-100) Mean Corpuscular Hemoglobin 30.6 pg (25-34) Mean Corpuscular Hemoglobin Concent 35.6 g/dl (32-36) Platelet Count 166 K/uL (130-400) Mean Platelet Volume 10.7 fL (7.4-10.4) Neutrophils (%) (Auto) 56.6 % Lymphocytes (%) (Auto) 31.6 % Monocytes (%) (Auto) 9.3 % Eosinophils (%) (Auto) 1.7 % Basophils (%) (Auto) 0.5 % Neutrophils # (Auto) 3.40 K/uL (1.4-6.5) Lymphocytes # (Auto) 1.90 K/uL (1.2-3.4) Monocytes # (Auto) 0.56 K/uL (0.11-0.59) Eosinophils # (Auto) 0.10 K/uL (0-0.5) Basophils # (Auto) 0.03 K/uL (0-0.2) RDW Standard Deviation 41.1 fL (36.4-46.3) RDW Coefficient of Variation 13.0 % (11.5-14.5) Immature Granulocyte % (Auto) 0.3 % Immature Granulocyte # (Auto) 0.02 K/uL (0.00-0.02) Anion Gap 7.0 mmol/L (3-11) Est Creatinine Clear Calc Drug Dose 193.6 ml/min Estimated GFR () 130.2 Estimated GFR (Non- 112.3 BUN/Creatinine Ratio 10.4 (10-20) Calcium Level 8.3 mg/dl (8.5-10.1) Total Bilirubin 0.4 mg/dl (0.2-1) Direct Bilirubin mg/dl (0-0.2) Aspartate Amino Transf (AST/SGOT) 27 U/L (15-37) Alanine Aminotransferase (ALT/SGPT) 70 U/L (12-78) Alkaline Phosphatase 34 U/L (45-117) Total Protein 7.1 gm/dl (6.4-8.2) Albumin 3.8 gm/dl (3.4-5.0) Globulin 3.3 gm/dl (2.5-4.0) Albumin/Globulin Ratio 1.2 (0.9-2) Thyroid Stimulating Hormone (TSH) 2.000 uIu/ml (0.300-4.500) Chemistry Specimen Hemolysis Valproic Acid (Depakene) Level 15 mcg/ml (50-100) Ethyl Alcohol mg/dL < 3.0 mg/dl (0-3)
--- NOTE | 2018-03-18 10:05 | Medical Student: BHU Only ---
Psychiatric Progress Note IDENTIFYING INFOMATION: Pt is a 32 yo M who was brought to the ED by police with increased paranoia of people entering his apartment and siphoning gas from his car. He is on a 201 voluntary commitment. Currently he is continuing his outpt meds (psych - Risperdal, Wellbutrin, and Depakote). SUBJECTIVE: The patient was seen and assessed today, and progress was reviewed with nursing. The patient reports doing "satisfied". Sleep was "okay" and noted to be 8 hours by staff Pt reported doing well this morning. He was isolative but did come out to eat dinner last evening but did not interact with others, and did not participate in evening group. er nursing staff, he had paranoia yesterday about whether his father was really his father, and he supposedly had not been in contact with his parents for 2 & 1/2 mo. Met with case checker Radha yesterday and wanted referral to [facility] (JARR[facility] obtained) to be made. He said last night he dreamed a lot and was in and out of consciousness probably around 20 times. Pt is stilled bothered by his back pain and went on to mention how one time he got imaging done and nothing was found and going to the chiropractor sometimes for manipulation. It appears that he sometimes gets fixated on physical symptoms that he has. He said his mind is "clearer" today and he's trying to get back to his normal routines when outside the hospital, including writing in his notebook which he mentioned as helpful. He did not want to switch to Invega Sustenna because he was concerned of the side effects. He continues to feel safe on the unit and said his goals was to get things accomplished (paperwork for example). ROS: Pt reports feeling well, sleeping okay, and good appetite MSE: Appearance is that of a casually dressed male who appears his stated age. The patient is generally cooperative with the interview. Eye contact is normal. Motor behavior is normal. Speech: normal volume and tone,fast rate,. Affect: anxious. Mood: "satisfied". Thought process: tangential, FOI, KRISTEL Thought content: Delusions regarding his neighbor entering his apartment, denied SI or HI Perception: reported hallucinations of waves and clouds. Cognition: Language grossly intact, memory and attention impaired. Intelligence is estimated to be average. Insight is estimated to be severely impaired. Judgment is estimated to be severely impaired. ASSESSMENT: Pt is a 32 yo M who was brought to the ED by police with increased paranoia of people entering his apartment and siphoning gas from his car. He is on a 201 voluntary commitment. Currently he is continuing his outpt meds and did not want to change to Invega Sustenna. He remains feeling safe here but is isolative. 1. Schizoaffective disorder bipolar type a. Continue outpt meds of Risperdal (1mg QAM and 2mg HS. 1mg Q4h prn), Wellbutrin, Depakote. Consta injection due 03/20/18, consider increasing to 25mg q2wk b. Invega Sustenna was discussed with pt which he refused due to concerns with SE c. Cogentin 1mg BID. d. Vistaril 25mg prn for anxiety and 50mg for insomnia e. q15 safety checks, encourage group participation, work on safety planning and coping skills. f. Coordinate/speak with Yas Waterman and Radha for more info 2. Hypertension a. Continue propranolol and lisinopril. 3. Hyperglycemia a. Continue metformin 4. Obesity a. Consider dietary consult when less psychotic 5. Nicotine Dependence a. Nicotine patches and gum prn 6. Aftercare Planning: a. ensure appropriate f/u appointment upon discharge to monitor 7. Medication Monitoring: a. Monitor FBS and lipid as atypical antipsychotic can have metabolic SE. Last checked - triglycerides 519 (06/14/17) cholesterol 238 (06/04/17) LDL 116 (06/04/17) A1c 5.8 (10/30/17) fasting glucose 121 (11/26/17) Date of Service: March 18, 2018.
[2018-03-18] MEDS: IBUPROFEN 600 MG TAB PO PRN (13:38)
[2018-03-18] MEDS: NICOTINE 21 MG/24 HR TDSY TD SCH (14:15)
[2018-03-18] MEDS: RISPERIDONE 2 MG TAB PO SCH (21:04)
[2018-03-19 06:48] VITALS: BP_SYST 101; BP_SYST 121; BP_DIAS 63; BP_DIAS 75; PULSE 84; PULSE 88; TEMP 36.6
[2018-03-19] MEDS: BENZTROPINE MESYLATE 1 MG TAB PO SCH ×2 (08:38→21:39)
[2018-03-19] MEDS: METFORMIN HCL 500 MG TAB PO SCH ×2 (08:39→20:42)
[2018-03-19] MEDS: DIVALPROEX 500 MG EXTENDED RELEASE TAB PO SCH ×2 (08:39→21:40)
[2018-03-19] MEDS: BuPROPion SR 150 MG TABCR PO SCH (08:41)
[2018-03-19] MEDS: LISINOPRIL 5 MG TAB PO SCH (08:41)
[2018-03-19] MEDS: hydrOXYzine HCL 25 MG TAB PO SCH ×2 (08:41→21:39)
[2018-03-19] MEDS: RISPERIDONE 1 MG TAB PO SCH (08:41)
[2018-03-19] MEDS: PROPRANOLOL HCL 20 MG TAB PO SCH ×2 (09:21→21:40)
--- NOTE | 2018-03-19 09:59 | Psychiatric Progress Notes ---
Progress Note Date of Service March 19, 2018. Interval History Bonilla Anderson is a 32-year-old male with schizoaffective disorder bipolar type who lives in [place], was admitted voluntarily on March 15, 2018 at 13:56 after he was brought in by police for psychosis. Chief Complaint "Good, better ". Subjective Patient was seen & assessed with NANCY Dee, and interval progress reviewed with Nursing. Staff report he submitted a 72 hour notice requesting to withdraw from treatment yesterday afternoon, which will be up on Friday. He is going to some groups, but isolates in his room at times. He reports that his mood is improving, states that he is not having paranoid thoughts "in here, " but continues to worry about his neighbors in his apartment complex. He is able to process some of the delusions he endorsed on admission, states that he was thinking "about something that happened in the past," and is not sure that somebody was actually breaking into his apartment and taking his things, stating that he might of misplaced them. He talked about feeling as if he was "in a dream world," was isolating at home, listening to the TV and radio at the same time, and could not tell what noises were real and which were not. When asked about his report that a neighbor was siphoning gas out of his car, he states that he had gone for a drive that morning and thoughts that his gas was lower than it had been the day before, and related this to a thoughts about a neighbor who had moved out months ago but owned a kerosene heater and had a kerosene can with a tube on it, which led him to think about someone siphoning gas. He says that he drove to the [employer] parking lot to call police about this, as he did not want the police to come to his apartment complex parking lot, because then all of the neighbors would C. He now thinks that he should have thought things through more before calling police. He continues to feel "skeptical about the neighbors' values and morals," but thinks that he will be able to feel safe at home. He says he requested to leave treatment as he is getting anxious about all of the things he needs to do at home, including laundry and cleaning. He is also looking forward to being able to get outside, as he enjoys hiking and going to a park near his home. Discussed the concept of reality testing, and encouraged him to work on different techniques that he can use at home. He feels safe here, and denies SI, HI, and AVH. He is going to some groups, and feels they are helpful, and states he misses them at times as he goes to lie down because his back hurts. Ibuprofen helps. Review of Systems Chronic back pain, restlessness improved. Sleep Information Total Hours of Sleep: 7.00 Meal Information Percent of Breakfast Consumed: 100 Percent of Lunch Consumed: 100 Percent of Dinner Consumed: 100 Mental Status Exam During interview pt is: alert and oriented, cooperative Appearance: appropriately dressed, appropriately groomed, other (Obese, shoulder length hair, which appears clean seated in no acute distress.) Eye contact is: good Motor behavior is: steady gait & station, no abnormal motor movements (Much less restless) Speech: other (Hyperverbal, mildly pressured, but normal rate and volume) Affect: anxious (But reactive and appropriate) Mood is: other ("Good, better.") Thought process: goal directed, looseness of associations (Mild) Thought content: paranoid (But improved insight into his thinking) Suicidal thought are: denied Homicidal thoughts are: denied Hallucinations: denies auditory, denies visual Cognition: memory grossly intact, attention grossly intact, language grossly intact Intelligence estimated to be: average Insight: impaired Judgement: impaired Impression Has declined the switch to Sustenna due to concerns for side effects. Is due for next Consta shot on Friday, which the hospital does not carry. Will need to make arrangements with an outside pharmacy. He uses [facility], so will have nursing inquire with them first. Plan (1) Schizoaffective disorder, bipolar type 03/16 -reviewed records from [facility]; left a message with Yas Waterman to coordinate care and discuss his case. (Received call back from nursing staff that Yas is out until next Friday, and that per their available records, he has never been on Invega Sustenna). He was transitioned from Abilify Maintena and Seroquel to risperidone Consta 12.5mg q 2weeks and oral risperidone , although it is not clear to me why he is on such a low dose of the injection with overlapping oral medication. His next Consta injection is due 03/20/18, and will consider increasing it to 25 mg every 2 weeks, while continuing oral supplementation. In the interim, I will increase his oral risperidone to 1 mg in the morning and 2 mg at bedtime. Continue other reported home meds: Depakote 500mg qam and 1000mg HS, bupropion SR 150mg qAM, benztropine 1mg BID. - Depakote level was 15 at 11:48 AM yesterday. Consider rechecking a trough and titration of Depakote dose if needed. - Coordinate with Radha CROSS, and get collateral information -Per social work, patient has not been compliant with case management. - Fasting labs reviewed: 06/14/17 TG 519, cholesterol 238, LDL 116, and HDL 36. Hgb A1C 5.8 on 10/30/17, estimated ave. glucose of 120. Fasting glucose 121 on . 03/17 -symptoms are improving here, but collateral information from his blunted piano case maker indicates that his symptoms have not been well controlled in some time, and he admits to paranoia and auditory hallucinations, despite good compliance with the Risperdal Consta for the past 2 months. Suggested he consider a trial of Invega Sustenna, likely at a higher dose, given that he had a question of side effects on the higher dose of risperidone. We reviewed the risks, benefits, and side effects, and provided him with an up-to-date patient handout on the medication. He wanted to think about it, but if he is willing, he could be started immediately on Invega Sustenna loading injections, as he has already demonstrated tolerance of the risperidone. Would switch his oral risperidone to oral paliperidone, which could then be tapered off once he has stabilized. 03/18 - Declines switch to Sustenna - Is due for Consta on Friday. If previous dose was 12. 5 mg., will need to increase to 25 mg. IM. Will need to make arrangements to obtain 03/19 -Constant ordered for 25 mg IM tomorrow. Continue increased dose of oral risperidone. If he continues with the Concerta, he will likely require a 37-1/ 2 or even 50 mg dose. Would encourage him to consider switching to Invega Sustenna long-term. -Outpatient piano case maker, Radha, coming to meet with him today. Encouraged him to explore ways to increase outpatient supports and structure, such as psych rehab or clubhouse. -Assist the patient in working on coping skills and ways to reality test. (2) Nicotine dependence Offer nicotine patch and gum prn for cravings. Provide smoking cessation education, and refer back to PCP. (3) Hyperglycemia Continue home dose of Metformin. (4) Obesity Consider dietary consult once less psychotic. Encourage exercise and healthy diet. Attempts to avoid medications with a high risk of weight gain. (5) Hypertension Continue home doses of lisinopril and propranolol. (6) Chronic back pain 03/17 -musculoskeletal, chronic, patient reports responds to ibuprofen. We will order 600 mg every 6 hours as needed while here. Encourage stretching, gentle exercise, use of heating pad as needed, and ongoing efforts at weight loss. Discharge / Aftercare Planning Primary Care Physician: Name: Dr Badillo Psychiatrist: Name: Yas Waterman PA-C, [facility] Appointment Notes: [address] [place] [id number] Therapist: Name: [facility] Appointment Notes: [address] [place] [id number] Adapted Physical Education Specialist: [facility] [address] [facility] [address] Other: Name of Appointment #1: [facility] Appointment #1 Notes: appointment to be scheduled by piano case maker Visit Code E&M Code: 05849 Inventory Assets Strengths: Has outpatient providers, has housing, supportive family Needs: Improved symptom control, outpatient supports, techniques for managing paranoia Risk Factors Assessment Male: Yes : Yes /single/: Yes Higher / Fall in social status: No Health problems: Yes Mental Health Diagnoses: Yes Substance use disorders: No Previous attempt: No Family history of suicide: No Previous psychiatric stay: Yes Smoker: Yes Protective Factors Assessment Jew beliefs: No : No Responsible for young children: No Employed: No Data Vital Signs Last 24 Hrs: Date Time Temp Pulse Resp B/P (MAP) Pulse Ox O2 Delivery O2 Flow Rate FiO2 03/19/18 06:48 36.6 84 18 121/75 88 101/63 Meds Administered Last 24 Hrs: Meds Administered (Past 24Hrs) Medications (Trade) Dose Ordered Sig/Crystal Route Start Time Stop Time Status Last Admin Dose Admin Ibuprofen (Motrin Tab) 600 mg Q6H PRN PO 03/17/18 10:30 04/16/18 10:29 03/18/18 13:38 600 MG
--- NOTE | 2018-03-19 10:15 | Medical Student: BHU Only ---
Psychiatric Progress Note SUBJECTIVE: IDENTIFYING INFOMATION: Pt is a 32 yo M who was brought to the ED by police with increased paranoia of people entering his apartment and siphoning gas from his car. He is on a 201 voluntary commitment. Currently he is continuing his outpt meds (psych - Risperdal, Wellbutrin, and Depakote). SUBJECTIVE: The patient was seen and assessed today, and progress was reviewed with nursing. The patient reports doing "good". Sleep was "good" and noted to be 7 hours by staff. Pt reported doing well this morning. Yesterday morning he was complaining of going in and out of consciousness so sleep was not good, but this did not happen last night and he slept better. He still complained of back pain relieved by ibuprofen. Pt said he felt safe in the unit "sometimes" but also could not think of instances when he didn't feel safe. He was bothered by the background noise of the TV initially when talking outside in the day room area. He told me a little about [facility], which provides traveling nurses that go to his place once a week to check in on him. His thoughts were more clear this morning and when asked about the things he had been complaining of when he first came to the hospital, he was able to start to have a better idea of what may have happened. He reported that a previous neighbor used kerosine heater and had something that resembled what people use to siphon gas, and on the day of admission when pt's gas suddenly decreased, he made the connection between the two things and thought perhaps people were siphoning gas out of his car, and called the police, something now he thought he should have thought through before doing. He also mentioned his thoughts of someone entering the apartment might be him having realistic dreams. He reported instances when he'd be going napping on a couch then hear some noises making him think someone had entered the apartment. He's calling He also thought maybe it could just be that he was misplacing things around the apartment as opposed to someone entering and moving them around. He described these thoughts as more of an annoyance now rather than paranoia. Pt reported getting a bit homesick and said it was expected after having been away for a few days, and was thinking about things like doing the laundry. Reality testing was discussed which is something he may benefit from. He submitted a 72-hour notice to withdraw from treatment yesterday , which is up on Friday (03/21/2018 @ 0615). ROS: Pt reports feeling well, sleeping good, and good appetite MSE: Appearance is that of a casually dressed male who appears his stated age. The patient is generally cooperative with the interview. Eye contact is normal. Motor behavior is normal. Speech: normal volume and rate, a little pressured. Affect: anxious. Mood: "good ". Thought process: goal-directed, mild KRISTEL Thought content: Still paranoid but able to recognize that he might be making connections between different things in his life to created these thoughts, denied SI or HI Perception: Denied illusions or hallucinations Cognition: Language , memory, and attention grossly intact Intelligence is estimated to be average. Insight is estimated to be impaired. Judgment is estimated to be impaired. ASSESSMENT: Pt is a 32 yo M who was brought to the ED by police with increased paranoia of people entering his apartment and siphoning gas from his car. He is on a 201 voluntary commitment and submitted his 72-hour notice to withdraw from treatment yesterday. He is continuing his outpt meds . Due for a Consta shot tomorrow. Less isolative overall compared to previous days. 1. Schizoaffective disorder bipolar type a. Continue outpt meds of Risperdal (1mg QAM and 2mg HS. 1mg Q4h prn), Wellbutrin, Depakote. Consta injection due 03/20/18 (get from outside pharmacy) b. Invega Sustenna was discussed with pt which he refused due to concerns with SE c. Cogentin 1mg BID. d. Vistaril 25mg prn for anxiety and 50mg for insomnia e. q15 safety checks, encourage group participation, work on safety planning and coping skills. f. Coordinate/speak with Yas Waterman (psychiatrist) and Radha Aceves ( insurance case manager) g. Referral to [facility] made 2. Hypertension a. Continue propranolol and lisinopril. 3. Hyperglycemia a. Continue metformin 4. Obesity a. Consider dietary consult when less psychotic 5. Nicotine Dependence a. Nicotine patches and gum prn 6. Aftercare Planning: a. ensure appropriate f/u appointment upon discharge to monitor 7. Medication Monitoring: a. Monitor FBS and lipid as atypical antipsychotic can have metabolic SE. Last checked - triglycerides 519 (06/14/17) cholesterol 238 (06/04/17) LDL 116 (06/04/17) A1c 5.8 (10/30/17) fasting glucose 121 (11/26/17) Date of Service: March 19, 2018.
[2018-03-19] MEDS: IBUPROFEN 600 MG TAB PO PRN (11:18)
[2018-03-19] MEDS: NICOTINE 21 MG/24 HR TDSY TD SCH (15:35)
[2018-03-19] MEDS: BISMUTH SUBSALICYLATE PER ML OMNICELL CHARGE PO PRN ×2 (17:30→20:44)
[2018-03-19] MEDS: RISPERIDONE 2 MG TAB PO SCH (21:40)
[2018-03-20 06:33] VITALS: BP_SYST 116; BP_SYST 120; BP_DIAS 79; BP_DIAS 81; PULSE 81; PULSE 89; TEMP 36.7
[2018-03-20] MEDS: BENZTROPINE MESYLATE 1 MG TAB PO SCH ×2 (08:30→21:56)
[2018-03-20] MEDS: METFORMIN HCL 500 MG TAB PO SCH ×2 (08:30→21:56)
[2018-03-20] MEDS: DIVALPROEX 500 MG EXTENDED RELEASE TAB PO SCH ×2 (08:30→21:57)
[2018-03-20] MEDS: hydrOXYzine HCL 25 MG TAB PO SCH ×2 (08:31→21:58)
[2018-03-20] MEDS: RISPERIDONE 1 MG TAB PO SCH (08:31)
[2018-03-20] MEDS: PROPRANOLOL HCL 20 MG TAB PO SCH ×2 (08:31→21:57)
[2018-03-20] MEDS: BuPROPion SR 150 MG TABCR PO SCH (08:31)
[2018-03-20] MEDS: LISINOPRIL 5 MG TAB PO SCH (08:32)
[2018-03-20] MEDS ORDERED: RISPERIDONE MICROSPHERES 25 MG IM SCH (09:00)
--- NOTE | 2018-03-20 09:06 | Medical Student: BHU Only ---
Psychiatric Progress Note IDENTIFYING INFOMATION: Pt is a 32 yo M who was brought to the ED by police with increased paranoia of people entering his apartment and siphoning gas from his car. He is on a 201 voluntary commitment. Currently he is continuing his outpt meds (psych - Risperdal, Wellbutrin, and Depakote). SUBJECTIVE: The patient was seen and assessed today, and progress was reviewed with nursing. The patient reports doing "better". Sleep was "okay" Pt reported doing well this morning. He did not received any prn meds for sleep. After breakfast, he returned to him room and was resting with the lights off, listening to radio. He slept okay last night and was still bothered by his back pain. He had diarrhea yesterday afternoon and miss some groups because of it. Last night he went back to thinking that the thought of someone breaking into his apartment was real and was not possibly him misplacing things. He said this morning it seems better now and questioned for a little if he should have skipped breakfast instead. He knows his 72 hour notice is up tomorrow and said he knows there's a lot of things going on in [place] this weekend and actually is hoping he would be able to go. He said that there are people expecting him to be there but did not elaborate on it. He said otherwise there was nothing else on his mind bothering him. He is due for his Consta injection this morning. ROS: Pt reports feeling better, sleeping okay, and good appetite MSE: Appearance is that of a casually dressed male who appears his stated age. The patient is generally cooperative with the interview. Eye contact is normal. Motor behavior is normal. Speech: normal volume and rate, a little pressured. Affect: anxious. Mood: "better". Thought process: goal-directed, mild KRISTEL Thought content: Paranoia about people breaking into his apt Perception: Denied illusions or hallucinations Cognition: Language , memory, and attention grossly intact Intelligence is estimated to be average. Insight is estimated to be impaired. Judgment is estimated to be impaired. ASSESSMENT: Pt is a 32 yo M who was brought to the ED by police with increased paranoia of people entering his apartment and siphoning gas from his car. He is on a 201 voluntary commitment and submitted his 72-hour notice to withdraw from treatment yesterday. He is continuing his outpt meds . Due for a Consta shot today. He seems to have paranoia again about people breaking into his apt. 1. Schizoaffective disorder bipolar type a. Continue outpt meds of Risperdal (1mg QAM and 2mg HS. 1mg Q4h prn), Wellbutrin, Depakote. Consta injection due today b. Invega Sustenna was discussed with pt which he refused due to concerns with SE c. Cogentin 1mg BID. d. Vistaril 25mg prn for anxiety and 50mg for insomnia e. q15 safety checks, encourage group participation, work on safety planning and coping skills. f. Coordinate/speak with aYs Waterman (psychiatrist) and Radha Aceves ( director case) g. Referral to [facility] made 2. Hypertension a. Continue propranolol and lisinopril. 3. Hyperglycemia a. Continue metformin 4. Obesity a. Consider dietary consult when less psychotic 5. Nicotine Dependence a. Nicotine patches and gum prn 6. Aftercare Planning: a. ensure appropriate f/u appointment upon discharge to monitor 7. Medication Monitoring: a. Monitor FBS and lipid as atypical antipsychotic can have metabolic SE. Last checked - triglycerides 519 (06/14/17) cholesterol 238 (06/04/17) LDL 116 (06/04/17) A1c 5.8 (10/30/17) fasting glucose 121 (11/26/17) Date of Service: March 20, 2018.
--- NOTE | 2018-03-20 09:29 | Psychiatric Progress Notes ---
Progress Note Date of Service March 20, 2018. Interval History Bonilla Anderson is a 32-year-old male with schizoaffective disorder bipolar type who lives in [place], was admitted voluntarily on March 15, 2018 at 13:56 after he was brought in by police for psychosis. Chief Complaint "Better.". Subjective Patient was seen & assessed interval progress reviewed with Treatment Team. The patient says that his is better than when he came in. He reports clearer thinking, "more reality based". He continues to journal in an effort to understand how he got to this point in an effort to stop it from happening again. He has submitted his 72 hour notice to withdraw from treatment as he wants to be able to attend the celebrations in [place] where he lives. He thinks that his mother will be able to pick him up. He denies side effects to meds, but does say that he is having some diarrhea, but questions whether its food related. He denies SI. Denies aud/vis hallucinations. Review of Systems Constitutional: No fever, No chills, No sweats, No weight loss, No weakness, No fatigue, No problem reported ENT: No hearing loss, No unusual epistaxis, No nasal symptoms, No sore throat, No tinnitus, No dental problems, No trouble swallowing, No problem reported Respiratory: No cough, No sputum, No wheezing, No shortness of breath, No dyspnea on exertion, No dyspnea at rest, No hemoptysis, No problem reported Cardiovascular: No chest pain, No orthopnea, No PND, No edema, No claudication , No palpitations, No problem reported Abdomen: No pain, No nausea, No vomiting, No diarrhea, No constipation, No GI bleeding, No problem reported Musculoskeletal: No joint pain, No muscle pain, No swelling, No calf pain, No problem reported Neurologic: No memory loss, No paralysis, No weakness, No numbness/tingling, No vertigo, No balance problems, No problem reported Psychiatric: + problem reported (symptoms improving) Integumentary: No rash, No itch, No new/changing skin lesions, No color change , No bleeding, No problem reported Sleep Information Total Hours of Sleep: 8.25 Meal Information Percent of Breakfast Consumed: 100 Percent of Lunch Consumed: 100 Percent of Dinner Consumed: 100 Mental Status Exam During interview pt is: alert and oriented, cooperative Appearance: appropriately dressed, appropriately groomed, other (Obese, shoulder length hair, which appears clean seated in no acute distress.) Eye contact is: good Motor behavior is: steady gait & station, no abnormal motor movements Speech: normal in rate, rhythm & volume Affect: anxious Mood is: anxious, other ("better") Thought process: goal directed Thought content: paranoid (But improved insight into his thinking) Suicidal thought are: denied Homicidal thoughts are: denied Hallucinations: denies auditory, denies visual Cognition: memory grossly intact, attention grossly intact, language grossly intact Intelligence estimated to be: average Insight: impaired Judgement: impaired Impression 72 hr notice will tomorrow at 1605. He wants to be discharged and there are no criteria for a commitment. Will get Const 25 mg. IM today, with likely discharge tomorrow. Plan (1) Schizoaffective disorder, bipolar type 03/16 -reviewed records from [facility]; left a message with Yas Lombardohector to coordinate care and discuss his case. (Received call back from nursing staff that Yas is out until next Friday, and that per their available records, he has never been on Invega Sustenna). He was transitioned from Abilify Maintena and Seroquel to risperidone Consta 12.5mg q 2weeks and oral risperidone , although it is not clear to me why he is on such a low dose of the injection with overlapping oral medication. His next Consta injection is due 03/20/18, and will consider increasing it to 25 mg every 2 weeks, while continuing oral supplementation. In the interim, I will increase his oral risperidone to 1 mg in the morning and 2 mg at bedtime. Continue other reported home meds: Depakote 500mg qam and 1000mg HS, bupropion SR 150mg qAM, benztropine 1mg BID. - Depakote level was 15 at 11:48 AM yesterday. Consider rechecking a trough and titration of Depakote dose if needed. - Coordinate with Radha RCOSS, and get collateral information -Per social work, patient has not been compliant with case management. - Fasting labs reviewed: 06/14/17 TG 519, cholesterol 238, LDL 116, and HDL 36. Hgb A1C 5.8 on 10/30/17, estimated ave. glucose of 120. Fasting glucose 121 on . 03/17 -symptoms are improving here, but collateral information from his blunted director case management indicates that his symptoms have not been well controlled in some time, and he admits to paranoia and auditory hallucinations, despite good compliance with the Risperdal Consta for the past 2 months. Suggested he consider a trial of Invega Sustenna, likely at a higher dose, given that he had a question of side effects on the higher dose of risperidone. We reviewed the risks, benefits, and side effects, and provided him with an up-to-date patient handout on the medication. He wanted to think about it, but if he is willing, he could be started immediately on Invega Sustenna loading injections, as he has already demonstrated tolerance of the risperidone. Would switch his oral risperidone to oral paliperidone, which could then be tapered off once he has stabilized. 03/18 - Declines switch to Sustenna - Is due for Consta on Friday. If previous dose was 12. 5 mg., will need to increase to 25 mg. IM. Will need to make arrangements to obtain 03/19 -Consta ordered for 25 mg IM tomorrow. Continue increased dose of oral risperidone. If he continues with the Consta, he will likely require a 37-1/2 or even 50 mg dose. Would encourage him to consider switching to Invega Sustenna long-term. -Outpatient director case management, Radha, coming to meet with him today. Encouraged him to explore ways to increase outpatient supports and structure, such as psych rehab or clubhouse. -Assist the patient in working on coping skills and ways to reality test. 03/20 - Const 25 mg. IM today - 72 hour notice in and no criteria for an involuntary committment (2) Nicotine dependence Offer nicotine patch and gum prn for cravings. Provide smoking cessation education, and refer back to PCP. (3) Hyperglycemia Continue home dose of Metformin. (4) Obesity Consider dietary consult once less psychotic. Encourage exercise and healthy diet. Attempts to avoid medications with a high risk of weight gain. (5) Hypertension Continue home doses of lisinopril and propranolol. (6) Chronic back pain 03/17 -musculoskeletal, chronic, patient reports responds to ibuprofen. We will order 600 mg every 6 hours as needed while here. Encourage stretching, gentle exercise, use of heating pad as needed, and ongoing efforts at weight loss. Discharge / Aftercare Planning Primary Care Physician: Name: Dr Badillo Psychiatrist: Name: Yas Waterman PA-C, [facility] Date of Appointment: Apr 02, 2018 Time of Appointment: 9:00 Appointment Notes: [address] [facility] [address] Therapist: Appointment Notes: [address] [facility] [address] [employer] D[employer] Tender: Name: Radha Aceves [facility] Appointment Notes: [address] [facility] [address] [place] [address] Other: Name of Appointment #1: [place] [facility] Appointment #1 Notes: appointment to be scheduled by director case management Visit Code E&M Code: 31870 Inventory Assets Strengths: Has outpatient providers, has housing, supportive family Needs: Improved symptom control, outpatient supports, techniques for managing paranoia Risk Factors Assessment Male: Yes : Yes /single/: Yes Higher / Fall in social status: No Health problems: Yes Mental Health Diagnoses: Yes Substance use disorders: No Previous attempt: No Family history of suicide: No Previous psychiatric stay: Yes Smoker: Yes Protective Factors Assessment Protestant beliefs: No : No Responsible for young children: No Employed: No Data Vital Signs Last 24 Hrs: Date Time Temp Pulse Resp B/P (MAP) Pulse Ox O2 Delivery O2 Flow Rate FiO2 03/20/18 06:33 36.7 81 20 120/81 89 116/79 Meds Administered Last 24 Hrs: Current Inpatient Medications Medications (Trade) Dose Ordered Sig/Crystal Route Start Time Stop Time Status Last Admin Dose Admin Risperidone (Risperdal Tab) 1 mg Q4H PRN PO 03/15/18 14:15 04/14/18 14:14 03/15/18 14:14 1 MG Hydroxyzine HCl (Vistaril Tab) 25 mg Q4H PRN PO 03/15/18 14:15 04/14/18 14:14 03/15/18 14:14 25 MG Acetaminophen (Tylenol Tab) 650 mg Q4H PRN PO 03/15/18 15:00 04/14/18 14:59 Bismuth Subsalicylate (Kaopectate Liqd) 15 ml PRN PRN PO 03/15/18 15:00 04/14/18 14:59 03/19/18 20:44 15 ML Al Hydroxide/Mg Hydroxide (Maalox Susp) 30 ml Q4H PRN PO 03/15/18 15:00 04/14/18 14:59 Magnesium Hydroxide (Milk Of Magnesia Susp) 30 ml DAILY PRN PO 03/15/18 15:00 04/14/18 14:59 Sodium Chloride ([place] Nasal [place]) PRN PRN NA 03/15/18 15:00 04/14/18 14:59 Hydroxyzine HCl (Vistaril Tab) 50 mg HSZ PRN PO 03/15/18 15:00 04/14/18 14:59 Nicotine Polacrilex (Nicorette 2MG Gum) 1-2 PIECES 12H PRN 0,700-2... Q2H PRN MT 03/15/18 15:00 04/14/18 14:59 03/18/18 11:44 1 PIECE Nicotine (Nicoderm Cq 21MG Patch) 1 patch Q24H TD 03/15/18 15:00 04/14/18 14:59 03/19/18 15:35 1 PATCH Benztropine Mesylate (Cogentin Tab) 1 mg BID PO 03/15/18 22:00 04/14/18 21:59 03/20/18 08:30 1 MG Bupropion HCl (Wellbutrin-Sr Tab) 150 mg DAILY PO 03/16/18 09:00 04/15/18 08:59 03/20/18 08:31 150 MG Divalproex Sodium (Depakote Extended Rel Tab) 1,000 mg HS PO 03/15/18 22:00 04/14/18 21:59 03/19/18 21:40 1,000 MG Divalproex Sodium (Depakote Extended Rel Tab) 500 mg DAILY PO 03/16/18 09:00 04/15/18 08:59 03/20/18 08:30 500 MG Hydroxyzine HCl (Vistaril Tab) 50 mg BID PO 03/15/18 22:00 04/14/18 21:59 03/20/18 08:31 50 MG Lisinopril (Zestril Tab) 5 mg DAILY PO 03/16/18 09:00 04/15/18 08:59 03/20/18 08:32 5 MG Metformin HCl (Glucophage Tab) 500 mg DAILY PO 03/16/18 09:00 04/15/18 08:59 03/20/18 08:30 500 MG Metformin HCl (Glucophage Tab) 1,000 mg QPM PO 03/15/18 21:00 04/14/18 20:59 03/19/18 20:42 1,000 MG Propranolol HCl (Inderal Tab) 40 mg BID PO 03/15/18 22:00 04/14/18 21:59 03/20/18 08:31 40 MG Risperidone (Risperdal Tab) 1 mg DAILY PO 03/16/18 09:00 04/15/18 08:59 03/20/18 08:31 1 MG Risperidone (Risperdal Tab) 2 mg HS PO 03/15/18 22:00 04/14/18 21:59 03/19/18 21:40 2 MG Ibuprofen (Motrin Tab) 600 mg Q6H PRN PO 03/17/18 10:30 04/16/18 10:29 03/19/18 11:18 600 MG Risperidone (Risperdal Consta) 25 mg Q14D@0900 IM 03/20/18 09:00 04/19/18 08:59 Lab Results Last 24 Hrs: 03/15/18 11:48 Red Blood Count 4.87, Mean Corpuscular Volume 86.0, Mean Corpuscular Hemoglobin 30.6, Mean Corpuscular Hemoglobin Concent 35.6, Mean Platelet Volume 10.7, Neutrophils (%) (Auto) 56.6, Lymphocytes (%) (Auto) 31.6, Monocytes (%) (Auto) 9.3, Eosinophils (%) (Auto) 1.7, Basophils (%) (Auto) 0.5, Neutrophils # (Auto) 3.40, Lymphocytes # (Auto) 1.90, Monocytes # (Auto) 0.56, Eosinophils # (Auto) 0.10, Basophils # (Auto) 0.03 03/15/18 11:48 Test 03/15/18 11:15 03/15/18 11:48 Urine Color YELLOW Urine Appearance CLEAR (CLEAR) Urine pH 6.5 (4.5-7.5) Urine Specific [place] 1.014 (1.000-1.030) Urine Protein NEG (NEG) Urine Glucose (UA) NEG (NEG) Urine Ketones NEG (NEG) Urine Occult Blood NEG (NEG) Urine Nitrite NEG (NEG) Urine Bilirubin NEG (NEG) Urine Urobilinogen NEG (NEG) Urine Leukocyte Esterase NEG (NEG) Urine Opiates Screen NEG (NEG) Urine Methadone, Qualitative NEG (NEG) Urine Barbiturates NEG (NEG) Urine Phencyclidine (PCP) Level NEG (NEG) Ur Amphetamine/Methamphetamine NEG (NEG) Urine MDE-amphetamine (MDEA) negative Ur Methylenedioxyamphetamine (MDA) negative MDMA (Ecstasy) Screen POS (NEG) Methylenedioxymethamphetamine (MDMA negative Urine Benzodiazepines Screen NEG (NEG) Urine Cocaine Metabolite NEG (NEG) Urine Marijuana (THC) NEG (NEG) White Blood Count 6.01 K/uL (4.8-10.8) Red Blood Count 4.87 M/uL (4.7-6.1) Hemoglobin 14.9 g/dL (14.0-18.0) Hematocrit 41.9 % (42-52) Mean Corpuscular Volume 86.0 fL (80-100) Mean Corpuscular Hemoglobin 30.6 pg (25-34) Mean Corpuscular Hemoglobin Concent 35.6 g/dl (32-36) Platelet Count 166 K/uL (130-400) Mean Platelet Volume 10.7 fL (7.4-10.4) Neutrophils (%) (Auto) 56.6 % Lymphocytes (%) (Auto) 31.6 % Monocytes (%) (Auto) 9.3 % Eosinophils (%) (Auto) 1.7 % Basophils (%) (Auto) 0.5 % Neutrophils # (Auto) 3.40 K/uL (1.4-6.5) Lymphocytes # (Auto) 1.90 K/uL (1.2-3.4) Monocytes # (Auto) 0.56 K/uL (0.11-0.59) Eosinophils # (Auto) 0.10 K/uL (0-0.5) Basophils # (Auto) 0.03 K/uL (0-0.2) RDW Standard Deviation 41.1 fL (36.4-46.3) RDW Coefficient of Variation 13.0 % (11.5-14.5) Immature Granulocyte % (Auto) 0.3 % Immature Granulocyte # (Auto) 0.02 K/uL (0.00-0.02) Anion Gap 7.0 mmol/L (3-11) Est Creatinine Clear Calc Drug Dose 193.6 ml/min Estimated GFR () 130.2 Estimated GFR (Non- 112.3 BUN/Creatinine Ratio 10.4 (10-20) Calcium Level 8.3 mg/dl (8.5-10.1) Total Bilirubin 0.4 mg/dl (0.2-1) Direct Bilirubin mg/dl (0-0.2) Aspartate Amino Transf (AST/SGOT) 27 U/L (15-37) Alanine Aminotransferase (ALT/SGPT) 70 U/L (12-78) Alkaline Phosphatase 34 U/L (45-117) Total Protein 7.1 gm/dl (6.4-8.2) Albumin 3.8 gm/dl (3.4-5.0) Globulin 3.3 gm/dl (2.5-4.0) Albumin/Globulin Ratio 1.2 (0.9-2) Thyroid Stimulating Hormone (TSH) 2.000 uIu/ml (0.300-4.500) Chemistry Specimen Hemolysis Valproic Acid (Depakene) Level 15 mcg/ml (50-100) Ethyl Alcohol mg/dL < 3.0 mg/dl (0-3)
[2018-03-20 11:31] VITALS: BP 146/75; PULSE 85
[2018-03-20] MEDS: NICOTINE 21 MG/24 HR TDSY TD SCH (15:11)
[2018-03-20] MEDS: RISPERIDONE 2 MG TAB PO SCH (21:57)
[2018-03-21 07:04] VITALS: BP_SYST 117; BP_SYST 118; BP_DIAS 78; BP_DIAS 81; PULSE 86; PULSE 88; TEMP 36.2
[2018-03-21] MEDS: BENZTROPINE MESYLATE 1 MG TAB PO SCH (08:38)
[2018-03-21] MEDS: METFORMIN HCL 500 MG TAB PO SCH (08:39)
[2018-03-21] MEDS: DIVALPROEX 500 MG EXTENDED RELEASE TAB PO SCH (08:39)
[2018-03-21] MEDS: PROPRANOLOL HCL 20 MG TAB PO SCH (08:40)
[2018-03-21] MEDS: BuPROPion SR 150 MG TABCR PO SCH (08:40)
[2018-03-21] MEDS: RISPERIDONE 1 MG TAB PO SCH (08:40)
[2018-03-21] MEDS: hydrOXYzine HCL 25 MG TAB PO SCH (08:40)
[2018-03-21] MEDS: LISINOPRIL 5 MG TAB PO SCH (08:41)
[2018-03-21] MEDS ORDERED: RSP1 PO (09:50)
[2018-03-21] MEDS ORDERED: RISPERIDONE MICROSPHERES IM (09:50)
[2018-03-21] MEDS ORDERED: RSP2 PO (09:50)
[2018-03-21] MEDS ORDERED: NICO21DI4 TD (09:50)
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
== END 2018-03-21 10:50 | disposition home or self-care (01) | DRG 885 ==
LOC: EDBD 11:14 → EDSEX 11:14 → C.EDA 11:16 → C.MHU 13:56
PROVIDERS: ADMIT Psychiatry & Neurology Psychiatry; ATTEND Psychiatry & Neurology Psychiatry
DX: F25.0 Schizoaffective disorder, bipolar type (principal); Z68.42 Body mass index [BMI] 45.0-49.9, adult; R73.9 Hyperglycemia, unspecified; I10 Essential (primary) hypertension; G89.29 Other chronic pain; M54.9 Dorsalgia, unspecified; E66.9 Obesity, unspecified; F17.200 Nicotine dependence, unspecified, uncomplicated; Z79.899 Other long term (current) drug therapy; Z79.84 Long term (current) use of oral hypoglycemic drugs; Z62.810 Personal history of physical and sexual abuse in childhood; Z88.1 Allergy status to other antibiotic agents; Z88.8 Allergy status to other drugs, medicaments and biological substances; Z91.040 Latex allergy status; Z91.048 Other nonmedicinal substance allergy status; Z81.8 Family history of other mental and behavioral disorders; Z83.3 Family history of diabetes mellitus

== ENCOUNTER → 2018-05-28 | Day surgery (SDC) | payer OTHER ==
[2018-05-27 15:45] VITALS: BMI 47.0
[~2018-05-28] VITALS: Ht 185.4 cm; Wt 163.6 kg
[~2018-05-28] MED LIST changes: +ALBUT/IPRATROP 3MG/0.5MG NEB 3 ML VIAL INH ONE; +ALBUTEROL HFA INHALER 8.5 GM INH ONE; +ARISTA ABSORBABLE HEMOSTAT 3GM TOP ONE; +ATROPINE SULFATE 0.1 MG/ML 5ML SYR IV PRN; +BUPIVACAINE/EPINEPHRINE 0.5% MPF 1:200,000 30 ML VIAL ONE; +CEFAZOLIN 3000MG IV PUSH 22.5 ML IV SCH; +CETI10TA84 PO; +DEXAMETHASONE SOD INJ 4 MG/ML VIAL ONE; -DPKSR/500 PO; +EpHEDrine SULFATE INJ 50 MG/ML AMP IV PRN; +FENTANYL CITRATE INJ 50 MCG/1 ML 2 ML VIAL IV PRN; +FENTANYL CITRATE INJ 50 MCG/1 ML 2 ML VIAL ONE; -HYDR-3126 PO; +HYDR-5688 PO; +HYDROCODONE/ACETAMIN 5/325MG TAB PO PRN; +HYDROmorphone INJ 1 MG/ML SYR IV PRN; +KETOROLAC TROMETHAMINE 30 MG/ML VIAL ONE; +LACTATED RINGER'S 1000ML 1,000 ML IV SCH; +LARYING-O-JET KIT (LTA) ONE; +LIDOCAINE HCL 2% 2 ML VIAL (20MG/ML) ONE; +LISI10TA PO; -LSN5 PO; +LTD/40 PO; +METOCLOPRAMIDE HCL INJ 5 MG/ML 2 ML VIAL IV PRN; +MIDAZOLAM HCL 1 MG/ML 2ML VIAL ONE; +NURSING VERBAL MED ORDER ONE; +ONDANSETRON INJ 2 MG/ML 2 ML VIAL IV PRN; +ONDANSETRON INJ 2 MG/ML 2 ML VIAL ONE; +PALI156I IM; +PROPOFOL IV EMULSION 10 MG/ML 20 ML VIAL ONE; -RISP12.5 INJ; -RISP1TAB68 PO; +ROCURONIUM BROMIDE 10 MG/ML 5 ML VIAL ONE; -RSP1 PO; +SODIUM CHLORIDE 0.9% 1000ML 1,000 ML IV SCH; +SUCCINYLCHOLINE CHLORIDE 20 MG/ML 10 ML VIAL IV ONE; +WLL100 PO; -WLLSR150 PO
--- NOTE | 2018-05-28 08:09 | History & Physical Bridge Note ---
H&P Re-Evaluation Bridge Note: I have examined the patient, reviewed the History & Physical and in the interval since the performance of the History & Physical I have noted the following changes of clinical significance: No changes noted
[2018-05-28 08:16] VITALS: BP 124/93; PULSE 85; TEMP 36.8; O2SAT 96; Ht 185.4 cm; Wt 163.6 kg
--- NOTE | 2018-05-28 09:32 | Discharge Instructions ---
Discharge Instructions Date of Service May 28, 2018. Admission Reason for Admission: Ventral Hernia Discharge Discharge Diagnosis / Problem: incarcerated hernia Discharge Goals Goal(s): Decrease discomfort, Therapeutic intervention Activity Recommendations Activity Limitations: as noted below Lifting Limitations: no more than 10 pounds Exercise/Sports Limitations: until after follow-up appointment May Resume Sexual Activity: after follow-up appointment Shower/Bathe: tomorrow . Instructions / Follow-Up Instructions / Follow-Up call [phone] with any questions or concerns. Current Hospital Diet Patient's current hospital diet: Discharge Diet Recommended Diet: Regular Diet Pending Studies Studies pending at discharge: no Medical Emergencies . Who to Call and When: Medical Emergencies: If at any time you feel your situation is an emergency, please call 911 immediately. . Non-Emergent Contact Non-Emergency issues call your: Primary Care Provider, Surgeon Call Non-Emergent contact if: temperature is above 101, wound has increased drainage, wound has increased redness, wound has increased pain . "Provider Documentation" section prepared by Kvng Perez. .
--- NOTE | 2018-05-28 10:59 | [facility] Post Operative Brief Note ---
Immediate Operative Summary Operative Date May 28, 2018. Pre-Operative Diagnosis Ventral Hernia Post-Operative Diagnosis Ventral Hernia Procedure(s) Performed Open Ventral Hernia Repair with Enterolysis Surgeon Dr. Perez Qlikview Developer Surgeon(s) ALLI Herrera Estimated Blood Loss 10 ml Findings Consistent with Post-Op Diagnosis Specimens A. Hernia Sac (Ventral) Anesthesia Type General Complication(s) none
--- NOTE | 2018-05-28 11:13 | [facility] Operative Report ---
Operative Report Operative Date May 28, 2018. Pre-Operative Diagnosis Ventral Hernia Post-Operative Diagnosis Ventral Hernia Procedure(s) Performed Open Ventral Hernia Repair with Enterolysis Surgeon Dr. Perez Dog Bather Surgeon(s) ALLI Herrera Estimated Blood Loss 10 ml Specimens A. Hernia Sac (Ventral) Anesthesia Type General Complication(s) none Description of Procedure After informed consent was obtained the patient was taken the operating room and placed in a supine position. After successful placement of the laryngeal mask airway the abdomen was shaved and sterilely prepped and draped in usual fashion. I made a curvilinear infraumbilical incision with a 15 blade scalpel. This was carried down through the soft tissue using electrocautery to the fascia. I then used a Prisca clamp to come around the umbilicus. I detached the umbilical stalk using electrocautery. This revealed a ventral hernia from the epigastric region down to the umbilicus itself. There was a very large hernia sac that was chronic in nature and very thickened. I was able to bluntly dissect this down the fascia and then used electrocautery to first open it and inspected contents. This involved primarily omentum. I was able to excise the sac in 360 and discard it. This allowed me to grab fascial edges using Allis clamps and elevate the fascial edges. There was some small bowel incarcerated within it and this was taken down using mostly blunt dissection and small amounts of scissor lysis. Once I was able to get the adhesions taken down we were able to dunk everything back into the abdominal cavity. This left a discrete probably 3-3-1/2 cm hernia defect. Because of the patient's body habitus and history I felt that he may not be a good candidate for permanent mesh. I felt the risk of infection might be high and his ability to tolerate it might be poor. It was not under much tension as well. I therefore used #1 Ethibond in interrupted [id number] fashion to primarily close the hernia defect. Once this was completed I controlled any bleeding using electrocautery. I thoroughly irrigated the wound. I then reattached the umbilical stalk to the fascia using 0 Vicryl. I then placed Antonio powder on all the raw surfaces to help prevent seroma and hematoma formation. I then closed the defect using 0 Vicryl for deep layers 2-0 Vicryl for mid layers and 4 -0 Monocryl for skin. Marcaine was injected around the incision for postoperative analgesia. A sterile dressing was applied. The patient was awakened extubated and transferred to recovery in stable condition. My physician medication assistant was present for the entire case. He helped prep the patient. Helped with retraction for my dissection throughout the entire case. He also helped with wound closure and dressing placement. I attest to the content of the Intraoperative Record and any orders documented therein. Any exceptions are noted below.
[2018-05-28 12:04] VITALS: BP 133/82; PULSE 81; TEMP 36.3; O2SAT 96
--- NOTE | 2018-05-28 12:05 | Anesthesiology Progress Note ---
Anesthesia Post Op Note Date & Time May 28, 2018 at 12:05 Vital Signs Pain Intensity: 6 Vital Signs Past 12 Hours Date Time Temp Pulse Resp B/P (MAP) Pulse Ox O2 Delivery O2 Flow Rate FiO2 05/28/18 11:55 36.7 75 20 130/86 96 Room Air Nebulizer 05/28/18 11:45 77 18 138/91 100 Nebulizer 10 05/28/18 11:35 83 18 141/112 96 Oxymask 10 05/28/18 11:25 82 23 144/90 94 Oxymask 10 05/28/18 11:18 36.1 81 24 153/110 94 Oxymask 10 05/28/18 08:16 36.8 85 18 124/93 (103) 96 Room Air Notes Mental Status: alert / awake / arousable, participated in evaluation Pt Amnestic to Procedure: Yes Nausea / Vomiting: adequately controlled Pain: adequately controlled Airway Patency, RR, SpO2: stable & adequate BP & HR: stable & adequate Hydration State: stable & adequate Anesthetic Complications: no major complications apparent
[2018-05-28 12:34] VITALS: BP 149/83; PULSE 80; O2SAT 98
== END | disposition home or self-care (01) ==
LOC: C.ACU 07:32
PROVIDERS: ATTEND Surgery
DX: K43.9 Ventral hernia without obstruction or gangrene (principal); J45.909 Unspecified asthma, uncomplicated; N40.1 Benign prostatic hyperplasia with lower urinary tract symptoms; F17.200 Nicotine dependence, unspecified, uncomplicated; K21.9 Gastro-esophageal reflux disease without esophagitis; I10 Essential (primary) hypertension; E11.9 Type 2 diabetes mellitus without complications; F20.9 Schizophrenia, unspecified; E66.9 Obesity, unspecified; G47.33 Obstructive sleep apnea (adult) (pediatric); E78.1 Pure hyperglyceridemia; Z79.899 Other long term (current) drug therapy; Z88.1 Allergy status to other antibiotic agents; Z68.42 Body mass index [BMI] 45.0-49.9, adult; I25.10 Atherosclerotic heart disease of native coronary artery without angina pectoris; Z79.84 Long term (current) use of oral hypoglycemic drugs; F32.9 Major depressive disorder, single episode, unspecified

== ENCOUNTER 2020-03-23 21:31 | Inpatient (IN) ==
--- NOTE | 2020-03-23 22:08 | Emergency Department Note ---
Impression & Plan Psychosis, Bipolar disorder ED Provider Note NAME: INEZ MORTON AGE: 34 SEX: M : 1985 ARRIVES VIA: [employer] INFORMANT: Patient, ED PROVIDER(S): Jeff Feliz DO CHIEF COMPLAINT: Psychiatric evaluation HPI: The patient is a 34-year-old male who presented to the emergency department for an evaluation of mental health problems. The patient arrived at the emergency department with police. He was voluntary and is not at this time a 302 evaluation. The patient states that he has been having many problems recently where he may be doing things but is not completely aware of them. He appears to be somewhat disconnected. He does state that he has some auditory hallucinations. He is currently denying any suicidal homicidal ideation however he does not appear to be taking care of himself. He states he is been in bed for 4 days and not been eating properly. According to the police there may have been some damage to the home that he rents and they feel that he may have caused this damage although he states he may have done the damage but he does not specifically remember doing it. The patient states he was recently started on an anti-inflammatory medication for hip pain otherwise he states to be compliant with his other medications. ROS: See above HPI for pertinent positives & negatives. A total of 10 systems reviewed and were otherwise negative. PAST MEDICAL HISTORY: See Below PAST SURGICAL HISTORY: See Below FAMILY HISTORY: See Below SOCIAL HISTORY: See Below HOME MEDICATIONS: See Below ALLERGIES: See Below VITALS: See Below PHYSICAL EXAMINATION: GENERAL: The patient is awake and alert. He is somewhat anxious appearing and appears to be guarded. EYES: The conjunctivae are clear. The pupils are round and reactive. EARS, NOSE, MOUTH AND THROAT: The nose is without any evidence of any deformity. Mucous membranes are moist. Tongue is midline. NECK: The neck is nontender and supple. RESPIRATORY: There are scattered rhonchi noted throughout. There are no t achypnea or conversational dyspnea. CARDIOVASCULAR: Regular rate and rhythm noted there no murmurs rubs or gallops normal S1 normal S2. GASTROINTESTINAL: The abdomen is soft. Abdomen is nontender. MUSCULOSKELETAL/EXTREMITIES: There is no evidence of gross deformity full range of motion is noted in the hips and shoulders. SKIN: There is no obvious evidence of any rash. There are no petechiae, pallor or cyanosis noted. NEUROLOGIC: Patient is awake alert and oriented x3 strength is symmetric p atellar reflexes are 2+ bilaterally PSYCH: The patient is awake and alert. He is somewhat guarded and appears to be anxious. He is currently denying any suicidal homicidal ideation. MEDICAL DECISION MAKING: The patient is a 34-year-old male who presented to the emergency department for mental health evaluation. The patient has a long history of mental health problems. The patient presented to the emergency department for mental health evaluation. He was not with a 302 petition rather he was voluntary for evaluation. The patient was experiencing some problems at home with some auditory hallucinations. The patient states that he was compliant with his medications. The patient was medically cleared in the emergency department. He was found to have elevated blood pressure as well as mild tachycardia but was treated with medications for anxiety and was feeling much better on subsequent reevaluation. The patient was evaluated by the mental health case coordinator. Triage Nursing notes reviewed. Prior medical records reviewed Vital Signs: reviewed and remarkable for no significant abnormalities Differential diagnosis: Mood disorder, infection, hypoglycemia, electrolyte abnormalities, cardiac sources, intracerebral event, toxicologic, trauma, neurologic, as well as other pathologies. ER treatment provided: See below Diagnostics interpreted by me: ECG: none Laboratory studies: As stated above and show below. Imaging studies: See below Consultation(s): none Past Med/Surg History Medical History ADD (attention deficit disorder) Anxiety Exercise-induced asthma stable History of hypertension Insomnia Morbid obesity Poor historian Pre-diabetes Pulmonary artery aneurysm Pulmonic stenosis Pulmonic valve insufficiency Schizoaffective disorder, bipolar type Sleep walking ?hx sleep walking- PCP aware Surgical History H/O ventral hernia repair Open repair ventral hernia: Grade 2/3, MAC 3.0, ETT 8.0 at [facility] History of esophagogastroduodenoscopy (EGD) History of wisdom tooth extraction S/P ventral herniorrhaphy (07/22/19) Laparoscopic recurrent Ventral Hernia Repair with [facility]esh Dr. Preez 07/22/19 Family History Unknown Diabetes Heart disease Lung cancer Grandfather Diabetes Father Family hx of colon cancer Denies family history of Ovarian cancer Prostate cancer Myocardial infarction Breast cancer Colorectal cancer Social History Preferred Language: Moroccan Communication Ability: Effective Convention Services Manager Required: No Beliefs That Will Affect Care: None marital status: Single Current Living Situation: Alone current occupational status: employed Feels Safe at Home: Yes Smoking Status: Current every day smoker Tobacco Type: pipe ; Second Hand Exposure: Yes ; Hx Alcohol Use: No (Alcoholic; Last ETOH use 3 months) Hx Substance Use: Yes substance use type: marijuana and crack/cocaine Substance Use Type Other:: hx marijuana, cocaine (remote hx) Dental Care, Regularly: Yes Physical Activity Frequency: 3-4 Times per Week Allergies Allergies Allergy/AdvReac Type Severity Reaction Status Date / Time adhesive Allergy Unknown RASH Verified 09/29/19 12:51 Aminoglycosides Allergy Unknown RASH Verified 09/29/19 12:51 neomycin Allergy Unknown RASH Verified 09/29/19 12:51 risperidone [From Risperdal] Allergy Unknown Unknown Verified 03/23/20 22:33 Home Meds Home Medications Medication Instructions Recorded Confirmed ibuprofen [Advil] 600 mg PO QID PRN 09/07/18 03/23/20 cariprazine 3 mg capsule 3 mg PO HS 06/15/19 03/23/20 bupropion HCl [Wellbutrin SR] 150 mg PO HS 07/01/19 03/23/20 fexofenadine 180 mg tablet 180 mg PO DAILY PRN 09/29/19 03/23/20 benztropine 1 mg PO DAILY 03/23/20 03/23/20 Previous Rx's Medication Instructions Recorded Ventolin HFA 90 mcg/actuation 1 puffs INH Q6H PRN #18 gm NS 05/03/19 aerosol inhaler meloxicam 7.5 mg tablet 7.5 mg PO BID #60 tab 02/22/20 Results & Data (ED) Vital Signs Vital Signs - 24 hr 03/23/20 21:44 03/23/20 23:45 Temperature 37.1 C Temperature Source Oral Pulse Rate 117 H Pulse Rate [Finger] 100 H Respiratory Rate 20 18 Respiratory Effort / Characteristics Non-Labored Spontaneous Respiratory Depth Normal Respiratory Pattern Regular Blood Pressure 165/108 H Blood Pressure [Right Arm] 149/99 H Blood Pressure Mean 127 Blood Pressure Mean [Right Arm] 115 Blood Pressure Position Sitting Pulse Oximetry 98 96 Oxygen Delivery Method Room Air Room Air Sepsis Recent Fever Within 48 Hours No Sepsis New/Unexplained Change in Mental Status No Sepsis Action Taken by Nursing No Action Required Laboratory Data Result diagrams: 03/23/20 22:20 03/23/20 22:20 Lab Results 03/23/20 03/23/20 03/23/20 Range/Units 22:20 22:20 22:20 WBC 7.34 (4.8-10.8) K/uL RBC 4.68 L (4.7-6.1) M/uL Hgb 14.6 (14.0-18.0) g/dL Hct 41.5 L (42-52) % MCV 88.7 (80-100) fL MCH 31.2 (25-34) pg MCHC 35.2 (32-36) g/dL RDW Std Deviation 41.3 (36.4-46.3) fL RDW Coeff of Cleve 12.8 (11.5-14.5) % Plt Count 193 (130-400) K/uL MPV 10.7 H (7.4-10.4) fL Immature Gran % (Auto) 0.1 % Neut % (Auto) 64.2 % Lymph % (Auto) 24.3 % Casey % (Auto) 9.8 % Eos % (Auto) 1.1 % Baso % (Auto) 0.5 % Immature Gran # (Auto) 0.01 (0.00-0.02) K/uL Neut # (Auto) 4.71 (1.4-6.5) K/uL Lymph # (Auto) 1.78 (1.2-3.4) K/uL Casey # (Auto) 0.72 H (0.11-0.59) K/uL Eos # (Auto) 0.08 (0-0.5) K/uL Baso # (Auto) 0.04 (0-0.2) K/uL Sodium 131 L (136-145) mmol/L Potassium 3.9 (3.5-5.1) mmol/L Chloride 101 (98-107) mmol/L Carbon Dioxide 25 (21-32) mmol/L Anion Gap 5.0 (3-11) BUN 6 L (7-18) mg/dl Creatinine 0.87 (0.6-1.4) mg/dl Est Cr Clr Drug Dosing 169.5 ml/min Est GFR ( Amer) 129.6 Est GFR (Non-Af Amer) 111.8 BUN/Creatinine Ratio 7.3 L (10-20) Glucose 133 H (70-99) mg/dl Calcium 9.0 (8.5-10.1) mg/dl Total Bilirubin 0.5 (0.2-1) mg/dl AST 14 L (15-37) U/L ALT 39 (12-78) U/L Alkaline Phosphatase 40 L (45-117) U/L Total Protein 7.1 (6.4-8.2) gm/dl Albumin 4.3 (3.4-5.0) gm/dl Globulin 2.8 (2.5-4.0) gm/dl Albumin/Globulin Ratio 1.5 (0.9-2) TSH 3.540 (0.300-4.500) uIu/ml Urine Color Urine Appearance (Clear) Urine pH (4.5-7.5) Ur Specific [place] (1.000-1.030) Urine Protein (Negative) Urine Glucose (UA) (Negative) Urine Ketones (Negative) Urine Blood (Negative) Urine Nitrite (Negative) Urine Bilirubin (Negative) Urine Urobilinogen (Negative) Ur Leukocyte Esterase (Negative) Salicylates 3.2 (2.8-20) mg/dl Urine Opiates Screen (Neg) Ur Methadone, Qual (Neg) Acetaminophen < 2 L (10-30) ug/ml Urine Barbiturates (Neg) Valproic Acid < 3 L (50-100) mcg/ml Ur Phencyclidine (PCP) (Neg) U Amphetamin/Meth Scrn (Neg) MDMA (Ecstasy) Screen (Neg) U Benzodiazepines Scrn (Neg) Ur Cocaine Metabolite (Neg) U Marijuana (THC) Screen (Neg) Ethyl Alcohol mg/dL (0-3) mg/dl 03/23/20 03/23/20 03/23/20 Range/Units 22:20 22:28 22:28 WBC (4.8-10.8) K/uL RBC (4.7-6.1) M/uL Hgb (14.0-18.0) g/dL Hct (42-52) % MCV (80-100) fL MCH (25-34) pg MCHC (32-36) g/dL RDW Std Deviation (36.4-46.3) fL RDW Coeff of Cleve (11.5-14.5) % Plt Count (130-400) K/uL MPV (7.4-10.4) fL Immature Gran % (Auto) % Neut % (Auto) % Lymph % (Auto) % Casey % (Auto) % Eos % (Auto) % Baso % (Auto) % Immature Gran # (Auto) (0.00-0.02) K/uL Neut # (Auto) (1.4-6.5) K/uL Lymph # (Auto) (1.2-3.4) K/uL Casey # (Auto) (0.11-0.59) K/uL Eos # (Auto) (0-0.5) K/uL Baso # (Auto) (0-0.2) K/uL Sodium (136-145) mmol/L Potassium (3.5-5.1) mmol/L Chloride (98-107) mmol/L Carbon Dioxide (21-32) mmol/L Anion Gap (3-11) BUN (7-18) mg/dl Creatinine (0.6-1.4) mg/dl Est Cr Clr Drug Dosing ml/min Est GFR ( Amer) Est GFR (Non-Af Amer) BUN/Creatinine Ratio (10-20) Glucose (70-99) mg/dl Calcium (8.5-10.1) mg/dl Total Bilirubin (0.2-1) mg/dl AST (15-37) U/L ALT (12-78) U/L Alkaline Phosphatase (45-117) U/L Total Protein (6.4-8.2) gm/dl Albumin (3.4-5.0) gm/dl Globulin (2.5-4.0) gm/dl Albumin/Globulin Ratio (0.9-2) TSH (0.300-4.500) uIu/ml Urine Color Yellow Urine Appearance Clear (Clear) Urine pH 7.5 (4.5-7.5) Ur Specific [place] 1.006 (1.000-1.030) Urine Protein Negative (Negative) Urine Glucose (UA) Negative (Negative) Urine Ketones Negative (Negative) Urine Blood Negative (Negative) Urine Nitrite Negative (Negative) Urine Bilirubin Negative (Negative) Urine Urobilinogen Negative (Negative) Ur Leukocyte Esterase Negative (Negative) Salicylates (2.8-20) mg/dl Urine Opiates Screen Neg (Neg) Ur Methadone, Qual Neg (Neg) Acetaminophen (10-30) ug/ml Urine Barbiturates Neg (Neg) Valproic Acid (50-100) mcg/ml Ur Phencyclidine (PCP) Neg (Neg) U Amphetamin/Meth Scrn Neg (Neg) MDMA (Ecstasy) Screen Neg (Neg) U Benzodiazepines Scrn Neg (Neg) Ur Cocaine Metabolite Neg (Neg) U Marijuana (THC) Screen Neg (Neg) Ethyl Alcohol mg/dL < 3.0 (0-3) mg/dl Administered Medications Discontinued Medications Lorazepam (Ativan) 1 mg PO NOW STA Stop: 03/23/20 23:19 Last Admin: 03/23/20 23:22 Dose: 1 mg Documented by: [id number] Imaging Data Attestation: I personally reviewed and interpreted this imaging study as follows: My Impression: 1 view chest x-ray was obtained in the emergency department. My interpretation is top normal heart size, no definite infiltrate, no free air, no pneumothorax. This was compared to a chest x-ray from 10/23/2018. No specific changes were noted. Discharge Plan Visit Data Chief Complaint: Mental Health Evaluation Stated Complaint: [facility] ED Provider: Zohra Heard Discharge Problem: Psychosis, Bipolar disorder Forms Stand Alone Forms: My [facility], Suicide Prevention Resources Prescriptions Prescriptions: No Action albuterol sulfate [Ventolin HFA] 90 mcg/actuation HFA aerosol inhaler 1 puffs INH Q6H PRN (Reason: shortness of breath or wheezing) Qty: 18 RF: 1 Vraylar 3 mg capsule 3 mg PO HS RF: 0 meloxicam [Mobic] 7.5 mg tablet 7.5 mg PO BID Qty: 60 RF: 3 fexofenadine [Kaci Allergy] 180 mg tablet 180 mg PO DAILY PRN (Reason: Allergy Symptoms) RF: 0 ibuprofen [Advil] 200 mg Tablet 600 mg PO QID PRN (Reason: Pain) RF: 0 bupropion HCl [Wellbutrin SR] 150 mg Tablet Sustained-Release 12 Hr 150 mg PO HS RF: 0 benztropine 1 mg tablet 1 mg PO DAILY RF: 0 Discharge Problem: Psychosis Qualifiers: Psychosis type: unspecified psychosis type Qualified Code(s): F29 - Unspecified psychosis not due to a substance or known physiological condition Bipolar disorder Qualifiers: Active/Remission status: remission status unspecified Qualified Code(s): F31.9 - Bipolar disorder, unspecified
[2020-03-23 22:28] LABS: Basophils # (auto) 0.04 K/uL (0-0.2); Basophils % (auto) 0.5 %; Eosinophils # (auto) 0.08 K/uL (0-0.5); Eosinophils % (auto) 1.1 %; Hematocrit (blood only) 41.5 % (42-52); Hemoglobin 14.6 g/dL (14.0-18.0); Immature Granulocytes # (auto) 0.01 K/uL (0.00-0.02); Immature Granulocytes % (auto) 0.1 %; Lymphocytes # (auto) 1.78 K/uL (1.2-3.4); Lymphocytes % (auto) 24.3 %; Mean Corpuscular Hemoglobin 31.2 pg (25-34); Mean Corpuscular Hgb Conc 35.2 g/dL (32-36); Mean Corpuscular Volume 88.7 fL (80-100); Mean Platelet Volume 10.7 fL (7.4-10.4); Monocytes # (auto) 0.72 K/uL (0.11-0.59); Monocytes % (auto) 9.8 %; Neutrophils # (auto) 4.71 K/uL (1.4-6.5); Neutrophils % (auto) 64.2 %; Platelet Count 193 K/uL (130-400); RDW Coefficient of Variation 12.8 % (11.5-14.5); RDW Standard Deviation 41.3 fL (36.4-46.3); Red Blood Count 4.68 M/uL (4.7-6.1); White Blood Count 7.34 K/uL (4.8-10.8)
[2020-03-23 22:44] LABS: Appearance Urine Clear (Clear); Bilirubin Urine Negative (Negative); Blood Urine Negative (Negative); Color Urine Yellow; Glucose Urine UA Negative (Negative); Ketones Urine Negative (Negative); Leukocyte Esterase Urine Negative (Negative); Nitrite Urine Negative (Negative); Protein Urine Negative (Negative); Specific Gravity Urine 1.006 (1.000-1.030); Urobilinogen Urine Negative (Negative); pH Urine 7.5 (4.5-7.5)
[2020-03-23 22:46] LABS: Albumin Level 4.3 gm/dl (3.4-5.0); BUN Creatinine Ratio 7.3 (10-20); Creatinine Clr Calc Pharmacy 169.5 ml/min; Est GFR (African American) 129.6; Est GFR (Non-African American) 111.8; Potassium 3.9 mmol/L (3.5-5.1)
[2020-03-23 22:49] LABS: Acetaminophen < 2 ug/ml (10-30); Salicylate 3.2 mg/dl (2.8-20); Valproic Acid < 3 mcg/ml (50-100)
[2020-03-23 22:56] LABS: Albumin Globulin Ratio 1.5 (0.9-2); Bilirubin,Total 0.5 mg/dl (0.2-1); Globulin 2.8 gm/dl (2.5-4.0); Thyroid Stimulating Hormone 3.54 uIu/ml (0.300-4.500); Total Protein 7.1 gm/dl (6.4-8.2)
[2020-03-23 23:03] LABS: Amphetamines+Metham, Urine Neg (Neg); Barbiturates, Urine Neg (Neg); Benzodiazepine, Urine Neg (Neg); Cocaine, Urine Neg (Neg); MDMA (Ecstacy), Urine Neg (Neg); Methadone, Urine Neg (Neg); Opiate, Urine Neg (Neg); Phencyclidine, Urine Neg (Neg)
[2020-03-23] MEDS ORDERED: LORazepam 1 MG TAB PO STA (23:18)
--- NOTE | 2020-03-24 01:56 | Emergency Department Note ---
ED Visit Note This case was signed out to me at change of shift awaiting bed placement. The patient has been accepted on 3 S. he was admitted there voluntarily. Dr. Randhawa requested that I prescribe 5 mg of oral Haldol and 1 mg of oral Cogentin. This was ordered. . : Psychosis Qualifiers: Psychosis type: unspecified psychosis type Qualified Code(s): F29 - Unspecified psychosis not due to a substance or known physiological condition Bipolar disorder Qualifiers: Active/Remission status: remission status unspecified Qualified Code(s): F31.9 - Bipolar disorder, unspecified
[2020-03-24] MEDS ORDERED: haloperidoL 5 MG TAB PO STA (02:46)
[2020-03-24] MEDS ORDERED: BENZTROPINE MESYLATE 1 MG TAB PO STA (02:46)
[2020-03-24] MEDS ORDERED: MAGNESIUM HYDROXIDE SUSP 30 ML UDC PO PRN (03:35)
[2020-03-24] MEDS ORDERED: BISMUTH SUBSALICYLATE PER ML OMNICELL CHARGE PO PRN (03:35)
[2020-03-24] MEDS ORDERED: ACETAMINOPHEN 325 MG TAB PO PRN (03:35)
[2020-03-24] MEDS ORDERED: ALUMINUM/MAGNESIUM SUSP 30 ML UDC PO PRN (03:35)
[2020-03-24] MEDS ORDERED: SODIUM CHLORIDE 0.65% NA SOLN 45 ML (OCEAN) PRN (03:35)
[2020-03-24] MEDS ORDERED: BENZTROPINE MESYLATE 1 MG TAB PO PRN (03:39)
[2020-03-24] MEDS ORDERED: haloperidoL 5 MG TAB PO PRN (03:39)
--- NOTE | 2020-03-24 07:14 | XRay Report ---
XR chest 1V portable CLINICAL HISTORY: Cough. COMPARISON STUDY: Chest radiograph October 23, 2018. FINDINGS: Lung volumes are normal. Lungs are clear. There is no pneumothorax or pleural effusion. Car diac size is normal. Mediastinal contours are normal. There is no evidence for pulmonary edema. IMPRESSION: No acute cardiopulmonary findings. ACT 112: Negative or not required by law. Electronically signed by: Binu Wilder M.D. 03/24/2020 7:13 AM
[2020-03-24] MEDS: NICOTINE 21 MG/24 HR TDSY TD SCH (13:01)
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
[2020-03-24] MEDS ORDERED: BENZTROPINE MESYLATE 1 MG/ML 2 ML AMP IM PRN (14:26)
[2020-03-24] MEDS: haloperidoL 5 MG TAB PO SCH (21:28)
[2020-03-24] MEDS: TRAZODONE HCL 50 MG TAB PO SCH (21:29)
--- NOTE | 2020-03-25 07:02 | Psychiatric Progress Note ---
Date of Service March 25, 2020 Impression / Recommendations Impression This 34-year-old man with a history of schizoaffective disorder versus schizophrenia, with symptoms beginning in 15 years ago when he was in college. The admission was precipitated by the fact that he broke through what was essentially a wall that divided his apartment from the neighboring apartment and a larger, converted building had once been a single-family home. Although his memory was that the neighbor was not home, at least not at the time that he entered the apartment, the report we have received is that the neighbor was, in fact, home and she called the police. The police then reportedly told the pa tient his option was to come to the emergency room for evaluation or to be arrested for breaking and entering. The patient attributes this behavior to having been in a "dreamlike" or "sleepwalking" haze, and that he began having vivid dreams and difficulty awakening from the dreams since beginning meloxicam about a week ago for arthritis and a hip (reportedly the result of an old injury). However, the report we have is that the child welfare caseworker had had been unable to get the patient to take a call from him for several weeks and that he had been nonadherent with his outpatient medication. The patient acknowledges that he had stopped taking his outpatient psychiatric medication, namely Prolixin decanoate 25 mg intramuscularly once a month. (This has not been confirmed as the correct dose schedule.) The patient acknowledges that he typically begins to experience auditory hallucinations about "2 weeks" after his most recent dose of IM Prolixin," and, further, he seems to recall a fair number of details from the circumstance that precipitated the admission, namely breaking through a drywalled doorway into someone else's apartment because he was hearing the sounds of a republican and people talking on the other side of the doorway and wanted to explore. The patient does seem to have insight into the fact that his symptoms of hearing voices are a psychiatric symptom in his case and that he needs psychiatric medications. He was started on Haldol with a plan to transition to Haldol Decanoate. In addition to the Prolixin Decanoate, he was also prescribed Zyprexa 10 mg at bedtime, Depakote 500 mg at bedtime, and Wellbutrin SR 150 mg daily with benztropine 1 mg daily, but had not been taking any of them for about a month, so they were held on admission. Inpatient treatment remains medically necessary as he is unable to provide for his own basic needs without the care and assistance of others. (1) Schizophrenia: 03/24/2020. -The patient has been admitted to the [facility] behavioral health unit. His being encouraged to actively participate in individual, group, and activity therapies. -The patient indicates that his psychiatric symptoms respond favorably to Prolixin Decanoate. However, he says that what he does not like about Prolixin is that it "works for couple weeks and then stops working." It may be that the patient has been receiving his injections of Prolixin Decanoate less frequently than may be required in his case. He was asked to consider the option of continuing Prolixin decanoate, but with more frequent dosage administration, versus switching to Haldol with the goal of converting to Haldol decanoate once stabilized. -We will begin haloperidol 5 mg p.o. twice daily with benztropine 2 mg every morning. Material risks and anticipated benefit of both of these medications were reviewed with the patient. He asked several questions and indicated understanding. 03/25 -Continue oral Haldol, and transition to decanoate if tolerated/effective. -Attending and participating in groups, explore options for family meeting. Coordinate care with his [facility] Monisha. (2) Hypertension: 03/24/2020 -We will continue to monitor the patient's blood pressure. He reports that he has a history of hypertension and his his blood pressure was elevated at admission. He tells us that he has not been taking an antihypertensive. We we will begin lisinopril 5 mg in the morning. (3) Insomnia: 03/24/2020. -Patient reports that he has frequently interrupted sleep regardless of his mood, and essentially describes primary insomnia. He notes that, in the past, he has responded favorably to hydroxyzine. -The patient is obese, and his pattern of intermittent insomnia would suggest the need to rule out obstructive sleep apnea. This was discussed with the patient and it was recommended that he follow-up on this with a primary care provider following discharge. -I will offer the patient trazodone 50 mg at bedtime as a standing order for sleep. (4) Anxiety: 03/24/2020 -Patient reports that he is often anxious and that this occurs regardless of whether he is feeling "up" or "down." Patient was provided with information regarding mindfulness techniques that can be used to manage anxiety when it occurs. -The patient was also advised that he can take hydroxyzine as needed for anxiety during the day. Inventory Assets Strengths: Insight into his need for treatment. Cooperative. Committed to recovery. Reports a positive work history. Needs: Resolution of auditory hallucinations. Improved sleep. Resolution of disorganized behaviors. Risk Factors Assessment Male: Yes : Yes Do You Have Access To A Gun?: No Health Problems: Yes Mental Health Diagnoses: Yes Substance Use Disorders: No Previous Attempt: No Family History of Suicide: No Previous Psychiatric Hospitalization: Yes Hopelessness: No Smoker: Yes (Patient describes himself as a "sometimes" smoker and does not experience nicotine withdrawal.) Protective Factors Assessment Sikh Beliefs: Yes (The patient reports that he is "a combination of Uatsdin and Latter Day.") : No Responsible for Young Children: No Employed: No (seeking employment) Stable Relationships: Yes Supportive Family: Yes Good Rapport with Provider: Yes Absence of Any Risk Factors Above: No Interval History Identifying Information INEZ MORTON is a 34-year-old M who currently lives in alone in [place], has a history of schizoaffective disorder bipolar type vs schizophrenia, and was admitted on 03/24/20 02:59 on a 201 voluntary commitment for psychosis and related disorganized behavior such as breaking through a partition/wall and into someone else's apartment. Chief Complaint " Yesterday was a little rough, better today". Review of Systems Sleep Information Total Hours of Sleep: 10 Sleep Comments: New admission - arrived at 0328 Meal Information Percent Meal Consumed - Breakfast: 100 Percent Meal Consumed - Lunch: 100 Percent Meal Consumed - Dinner: 100 Subjective Subjective Patient was seen & assessed and interval progress reviewed with nursing and social work. Staff report he has been anxious, paranoid, suspicious, feels others are watching him and trying to be like him. Regarding the event prior to admission, he said he did not recall what happened, thought he had an out of body experience, and felt very anxious, and reported hallucinations and delusions. His BCM was contacted and reported he has loud neighbors that republican often which disturbs his sleep, and he believes he can smell crack they are smoking, thinking it is coming through the vents. On my assessment, he just returned from the shower, and states he is trying to "get it together and go to groups." He thinks his thoughts are a little bit clearer since arriving at the hospital, but continues to struggle to express himself and organize his thoughts. He says "well it is different, should be clear, sometimes him in a state of mind it is not real." He says he missed his medications for several days, as "I didn't know what to think or do, thought I was different people, my face and my body weren't the same." Hallucinations are improving and he feels safer in the hospital. He states "it is a different world and here, different places provide different opportunities for me, it has been a different world." He feels easily overwhelmed, and admits to suicidal thoughts prior to admission, but denies intent to harm himself in the hospital. Physical Exam Psychiatric Orientation: alert and cooperative Apperance: appropriately dressed and appeared stated age Overweight, just showered, hair wet. Seated in no acute distress, calm and cooperative. Eye Contact: good eye contact Motor Behavior: steady gait and station and no abnormal motor movements Halting, speaks in sentence fragments Affect: + anxious affect "State of mind's not real." Thought Process: + tangential thought process and + incoherent thought process Disorganized Thought Content: + paranoid and + hopelessness Suicidal Thoughts: + reports suicidal thoughts Homicidal Thoughts: denies homicidal thoughts Hallucinations: + auditory hallucinations Cognition: attention grossly intact; + recent memory not intact Insight: + impaired insight Judgement: + impaired judgement Vital Signs (Past 24 Hours) Last Vital Signs Temp 36.9 C 03/24/20 06:30 Pulse 108 H 03/24/20 06:31 Resp 18 03/24/20 06:30 BP 139/98 03/24/20 06:31 Pulse Ox 95 03/24/20 02:47 Results & Data ([facility]) Current Inpatient Medications Current Inpatient Medications: Current Inpatient Medications Acetaminophen (Tylenol) 650 mg PO Q4H PRN PRN Reason: Headache or Minor Fever Stop: 04/23/20 03:34 Al Hydrox/Mg Hydrox/Simethicone (Maalox) 30 ml PO Q4H PRN PRN Reason: GI Upset Stop: 04/23/20 03:34 Benztropine Mesylate (Cogentin) 1 mg PO Q6H PRN PRN Reason: EPS Stop: 04/23/20 03:38 Benztropine Mesylate (Cogentin) 2 mg PO QAM [facility] Stop: 04/24/20 08:59 Benztropine Mesylate (Cogentin) 2 mg IM DAILY PRN PRN Reason: Dystonic reaction Stop: 04/23/20 14:25 Bismuth Subsalicylate (Kaopectate) 15 ml PO PRN PRN PRN Reason: Loose Stool Stop: 04/23/20 03:34 Haloperidol (Haldol) 5 mg PO Q4H PRN PRN Reason: Psychosis Stop: 04/23/20 03:38 Haloperidol (Haldol) 5 mg PO BID [facility] Stop: 04/23/20 20:59 Last Admin: 03/24/20 21:28 Dose: 5 mg Documented by: Hydroxyzine HCl (Vistaril) 50 mg PO HSZ PRN PRN Reason: Insomnia Stop: 04/23/20 03:34 Hydroxyzine HCl (Vistaril) 25 mg PO Q4H PRN PRN Reason: Anxiety Stop: 04/23/20 03:34 Lisinopril (Zestril) 5 mg PO QAM [facility] Stop: 04/24/20 08:59 Magnesium Hydroxide (Milk Of Magnesia) 30 ml PO DAILY PRN PRN Reason: Constipation Stop: 04/23/20 03:34 Miscellaneous (Remove Nicoderm Patch) 1 ea N/A DAILY@0859 [facility] Stop: 04/24/20 08:58 Nicotine (Nicoderm Cq) [facility] Stop: 04/23/20 10:44 Last Admin: 03/24/20 13:01 Dose: 21 mg Documented by: Nicotine Polacrilex (Nicorette 2mg) 1 piece MT PRN PRN PRN Reason: nicotine cravings Stop: 04/23/20 10:36 Sodium Chloride ([place] Nasal) 1 - 2 sprays NA PRN PRN PRN Reason: Nasal Dryness/Congestion Stop: 04/23/20 03:34 Trazodone HCl (Desyrel) 50 mg PO HS [facility] Stop: 04/23/20 21:59 Last Admin: 03/24/20 21:29 Dose: 50 mg Documented by: Mental Health & Subst Abuse Tx Therapist Name of Therapist: None Steel Rule Die Maker Name of Steel Rule Die Maker: Monisha [facility] Post Discharge Appointments Primary Care Physician Name Of Family Doctor: Dr. Badillo [facility] Home Team Therapy [facility]
[2020-03-25] MEDS: haloperidoL 5 MG TAB PO SCH ×2 (08:33→21:45)
[2020-03-25] MEDS: BENZTROPINE MESYLATE 1 MG TAB PO SCH (08:33)
[2020-03-25] MEDS: NICOTINE 21 MG/24 HR TDSY TD SCH (08:33)
[2020-03-25] MEDS: lisinopriL 5 MG TAB PO SCH (08:34)
--- NOTE | 2020-03-25 14:00 | Communication Note ---
Date of Service: March 25, 2020 Outpatient records from [facility] reviewed: 1 progress note sent from 01/21/2020, visit by phone call while patient was getting his Prolixin Decanoate injection, as he had not answered the phone call at the time of his appointment. He was a poor historian, but reported not taking his prescribed medications recently. He reported feeling confused, increased energy, problems with sleep, hallucinations, and paranoia. He was tangential and disorganized, and was willing to replace the Vraylar with Zyprexa.
[2020-03-25] MEDS: TRAZODONE HCL 50 MG TAB PO SCH (21:45)
--- NOTE | 2020-03-26 07:05 | Psychiatric Progress Note ---
Date of Service March 26, 2020 Impression / Recommendations Impression This 34-year-old man with a history of schizoaffective disorder versus schizophrenia, with symptoms beginning in 15 years ago when he was in college. The admission was precipitated by the fact that he broke through what was essentially a wall that divided his apartment from the neighboring apartment and a larger, converted building had once been a single-family home. Although his memory was that the neighbor was not home, at least not at the time that he entered the apartment, the report we have received is that the neighbor was, in fact, home and she called the police. The police then reportedly told the pa tient his option was to come to the emergency room for evaluation or to be arrested for breaking and entering. The patient attributes this behavior to having been in a "dreamlike" or "sleepwalking" haze, and that he began having vivid dreams and difficulty awakening from the dreams since beginning meloxicam about a week ago for arthritis and a hip (reportedly the result of an old injury). However, the report we have is that the foster care case manager had had been unable to get the patient to take a call from him for several weeks and that he had been nonadherent with his outpatient medication. The patient acknowledges that he had stopped taking his outpatient psychiatric medication, namely Prolixin decanoate 25 mg intramuscularly once a month. (This has not been confirmed as the correct dose schedule.) The patient acknowledges that he typically begins to experience auditory hallucinations about "2 weeks" after his most recent dose of IM Prolixin," and, further, he seems to recall a fair number of details from the circumstance that precipitated the admission, namely breaking through a drywalled doorway into someone else's apartment because he was hearing the sounds of a republican and people talking on the other side of the doorway and wanted to explore. The patient does seem to have insight into the fact that his symptoms of hearing voices are a psychiatric symptom in his case and that he needs psychiatric medications. He was started on Haldol with a plan to transition to Haldol Decanoate. In addition to the Prolixin Decanoate, he was also prescribed Zyprexa 10 mg at bedtime, Depakote 500 mg at bedtime, and Wellbutrin SR 150 mg daily with benztropine 1 mg daily, but had not been taking any of them for about a month, so they were held on admission. Inpatient treatment remains medically necessary as he is unable to provide for his own basic needs without the care and assistance of others. (1) Schizophrenia: 03/24/2020. -The patient has been admitted to the [facility] behavioral health unit. His being encouraged to actively participate in individual, group, and activity therapies. -The patient indicates that his psychiatric symptoms respond favorably to Prolixin Decanoate. However, he says that what he does not like about Prolixin is that it "works for couple weeks and then stops working." It may be that the patient has been receiving his injections of Prolixin Decanoate less frequently than may be required in his case. He was asked to consider the option of continuing Prolixin decanoate, but with more frequent dosage administration, versus switching to Haldol with the goal of converting to Haldol decanoate once stabilized. -We will begin haloperidol 5 mg p.o. twice daily with benztropine 2 mg every morning. Material risks and anticipated benefit of both of these medications were reviewed with the patient. He asked several questions and indicated understanding. 03/25 -Continue oral Haldol, and transition to decanoate if tolerated/effective. -Attending and participating in groups, explore options for family meeting. Coordinate care with his [facility] Monisha. 03/26 -Continue Haldol, patient improving but may need to consider increased dose. Encouraged him to utilize PRN if needed. -sheetmetal trades worker assist him to call the landlord to clarify any issues related to the episode prior to admission. (2) Hypertension: 03/24/2020 -We will continue to monitor the patient's blood pressure. He reports that he has a history of hypertension and his his blood pressure was elevated at admission. He tells us that he has not been taking an antihypertensive. We we will begin lisinopril 5 mg in the morning. (3) Insomnia: 03/24/2020. -Patient reports that he has frequently interrupted sleep regardless of his mood, and essentially describes primary insomnia. He notes that, in the past, he has responded favorably to hydroxyzine. -The patient is obese, and his pattern of intermittent insomnia would suggest the need to rule out obstructive sleep apnea. This was discussed with the patient and it was recommended that he follow-up on this with a primary care provider following discharge. -I will offer the patient trazodone 50 mg at bedtime as a standing order for sleep. (4) Anxiety: 03/24/2020 -Patient reports that he is often anxious and that this occurs regardless of whether he is feeling "up" or "down." Patient was provided with information regarding mindfulness techniques that can be used to manage anxiety when it occurs. -The patient was also advised that he can take hydroxyzine as needed for anxiety during the day. Inventory Assets Strengths: Insight into his need for treatment. Cooperative. Committed to recovery. Reports a positive work history. Needs: Resolution of auditory hallucinations. Improved sleep. Resolution of disorganized behaviors. Risk Factors Assessment Male: Yes : Yes Do You Have Access To A Gun?: No Health Problems: Yes Mental Health Diagnoses: Yes Substance Use Disorders: No Previous Attempt: No Family History of Suicide: No Previous Psychiatric Hospitalization: Yes Hopelessness: No Smoker: Yes (Patient describes himself as a "sometimes" smoker and does not experience nicotine withdrawal.) Protective Factors Assessment Baptism Beliefs: Yes (The patient reports that he is "a combination of Anabaptist and Mandaen.") : No Responsible for Young Children: No Employed: No (seeking employment) Stable Relationships: Yes Supportive Family: Yes Good Rapport with Provider: Yes Absence of Any Risk Factors Above: No Interval History Identifying Information INEZ MORTON is a 34-year-old M who currently lives in alone in [place], has a history of schizoaffective disorder bipolar type vs schizophrenia, and was admitted on 03/24/20 02:59 on a 201 voluntary commitment for psychosis and related disorganized behavior such as breaking through a partition/wall and into someone else's apartment. Chief Complaint " The same, better than it was". Review of Systems Sleep Information Total Hours of Sleep: 5.75 Sleep Comments: New admission - arrived at 0328 Meal Information Percent Meal Consumed - Breakfast: 80 Percent Meal Consumed - Lunch: 100 Percent Meal Consumed - Dinner: 100 Subjective Subjective Patient was seen & assessed and interval progress reviewed with nursing and social work. Staff report he attended groups during the day, but was very tired in the evening so went to bed early. He told staff that he was concerned that his neighbor may want to press charges against him for breaking through the wall. On my assessment, he states that he is feeling more rested today, and walked laps around the unit this morning for exercise. Thoughts are less confused, but still "not sure what to think about, what I should be thinking about," and continues to have difficulty recalling the events that led up to admission. He says he does not remember much, "I was in and out, up and down all day, really weird sleep cycle." He describes waking up at 3 AM and making coffee, being unsure what time it was, and felt like he was "in a dream." He thinks that he became more confused after missing his last fluphenazine injection, but is unable to relay the timeline. He has poor recall of the medication plan that was initiated on admission, although it has been discussed with him in the past 2 days, and reviewed it again. He denies side effects to Haldol. He is willing to call the landlord along with the social work therapist. Physical Exam Psychiatric Orientation: alert and cooperative Apperance: appropriately dressed, appropriately groomed and appeared stated age Obese, seated in no acute distress. Full polk. Eye Contact: good eye contact Motor Behavior: steady gait and station and no abnormal motor movements Halting speech Euthymic, mildly anxious at times "The same, better than it was." Thought Process: + tangential thought process; + thought process not clear or coherent Disorganized, contradictory statements, sentence fragments Thought Content: + paranoid and + derealization Suicidal Thoughts: denies suicidal thoughts Homicidal Thoughts: denies homicidal thoughts Hallucinations: no auditory hallucinations and no visual hallucinations Cognition: + recent memory not intact and + attention not intact Insight: + impaired insight Judgement: + impaired judgement Vital Signs (Past 24 Hours) Last Vital Signs Temp 36.5 C 03/25/20 21:38 Pulse 112 H 03/25/20 07:11 Resp 16 03/25/20 07:09 BP 123/66 03/25/20 07:11 Pulse Ox 95 03/24/20 02:47 Results & Data ([facility]) Current Inpatient Medications Current Inpatient Medications: Current Inpatient Medications Acetaminophen (Tylenol) 650 mg PO Q4H PRN PRN Reason: Headache or Minor Fever Stop: 04/23/20 03:34 Al Hydrox/Mg Hydrox/Simethicone (Maalox) 30 ml PO Q4H PRN PRN Reason: GI Upset Stop: 04/23/20 03:34 Benztropine Mesylate (Cogentin) 1 mg PO Q6H PRN PRN Reason: EPS Stop: 04/23/20 03:38 Benztropine Mesylate (Cogentin) 2 mg PO QAM [facility] Stop: 04/24/20 08:59 Last Admin: 03/25/20 08:33 Dose: 2 mg Documented by: Benztropine Mesylate (Cogentin) 2 mg IM DAILY PRN PRN Reason: Dystonic reaction Stop: 04/23/20 14:25 Bismuth Subsalicylate (Kaopectate) 15 ml PO PRN PRN PRN Reason: Loose Stool Stop: 04/23/20 03:34 Haloperidol (Haldol) 5 mg PO Q4H PRN PRN Reason: Psychosis Stop: 04/23/20 03:38 Haloperidol (Haldol) 5 mg PO BID [facility] Stop: 04/23/20 20:59 Last Admin: 03/25/20 21:45 Dose: 5 mg Documented by: Hydroxyzine HCl (Vistaril) 50 mg PO HSZ PRN PRN Reason: Insomnia Stop: 04/23/20 03:34 Hydroxyzine HCl (Vistaril) 25 mg PO Q4H PRN PRN Reason: Anxiety Stop: 04/23/20 03:34 Lisinopril (Zestril) 5 mg PO QAM [facility] Stop: 04/24/20 08:59 Last Admin: 03/25/20 08:34 Dose: 5 mg Documented by: Magnesium Hydroxide (Milk Of Magnesia) 30 ml PO DAILY PRN PRN Reason: Constipation Stop: 04/23/20 03:34 Miscellaneous (Remove Nicoderm Patch) 1 ea N/A DAILY@0859 [facility] Stop: 04/24/20 08:58 Last Admin: 03/25/20 08:33 Dose: 1 ea Documented by: Nicotine ([facility]oderm Cq) 21 mg [facility] Stop: 04/23/20 10:44 Last Admin: 03/25/20 08:33 Dose: 21 mg Documented by: Nicotine Polacrilex (Nicorette 2mg) 1 piece MT PRN PRN PRN Reason: nicotine cravings Stop: 04/23/20 10:36 Sodium Chloride ([place] Nasal) 1 - 2 sprays NA PRN PRN PRN Reason: Nasal Dryness/Congestion Stop: 04/23/20 03:34 Trazodone HCl (Desyrel) 50 mg PO HS [facility] Stop: 04/23/20 21:59 Last Admin: 03/25/20 21:45 Dose: 50 mg Documented by: Mental Health & Subst Abuse Tx Therapist Name of Therapist: None Laborer Drying Department Name of Laborer Drying Department: Monisha [facility] Post Discharge Appointments Primary Care Physician Name Of Family Doctor: Dr. Badillo, [facility]
[2020-03-26] MEDS: haloperidoL 5 MG TAB PO SCH ×2 (07:50→21:39)
[2020-03-26] MEDS: NICOTINE 21 MG/24 HR TDSY TD SCH (07:50)
[2020-03-26] MEDS: BENZTROPINE MESYLATE 1 MG TAB PO SCH (07:50)
[2020-03-26] MEDS: lisinopriL 5 MG TAB PO SCH (07:51)
[2020-03-26] MEDS: NICOTINE POLACRILEX 2 MG GUM MT PRN (08:46)
[2020-03-26] MEDS: TRAZODONE HCL 50 MG TAB PO SCH (21:39)
[2020-03-27] MEDS: haloperidoL 5 MG TAB PO SCH ×2 (08:39→21:36)
[2020-03-27] MEDS: lisinopriL 5 MG TAB PO SCH (08:39)
[2020-03-27] MEDS: BENZTROPINE MESYLATE 1 MG TAB PO SCH (08:39)
[2020-03-27] MEDS: NICOTINE 21 MG/24 HR TDSY TD SCH (12:01)
--- NOTE | 2020-03-27 12:57 | Psychiatric Progress Note ---
Date of Service March 27, 2020 Impression / Recommendations Impression This 34-year-old man with a history of schizoaffective disorder versus schizophrenia, with symptoms beginning in 15 years ago when he was in college. The admission was precipitated by the fact that he broke through what was essentially a wall that divided his apartment from the neighboring apartment and a larger, converted building had once been a single-family home. Although his memory was that the neighbor was not home, at least not at the time that he entered the apartment, the report we have received is that the neighbor was, in fact, home and she called the police. The police then reportedly told the pa tient his option was to come to the emergency room for evaluation or to be arrested for breaking and entering. The patient attributes this behavior to having been in a "dreamlike" or "sleepwalking" haze, and that he began having vivid dreams and difficulty awakening from the dreams since beginning meloxicam about a week ago for arthritis and a hip (reportedly the result of an old injury). However, the report we have is that the lining caser had had been unable to get the patient to take a call from him for several weeks and that he had been nonadherent with his outpatient medication. The patient acknowledges that he had stopped taking his outpatient psychiatric medication, namely Prolixin decanoate 25 mg intramuscularly once a month. (This has not been confirmed as the correct dose schedule.) The patient acknowledges that he typically begins to experience auditory hallucinations about "2 weeks" after his most recent dose of IM Prolixin," and, further, he seems to recall a fair number of details from the circumstance that precipitated the admission, namely breaking through a drywalled doorway into someone else's apartment because he was hearing the sounds of a green party and people talking on the other side of the doorway and wanted to explore. The patient does seem to have insight into the fact that his symptoms of hearing voices are a psychiatric symptom in his case and that he needs psychiatric medications. He was started on Haldol with a plan to transition to Haldol Decanoate. In addition to the Prolixin Decanoate, he was also prescribed Zyprexa 10 mg at bedtime, Depakote 500 mg at bedtime, and Wellbutrin SR 150 mg daily with benztropine 1 mg daily, but had not been taking any of them for about a month, so they were held on admission. Inpatient treatment remains medically necessary as he is unable to provide for his own basic needs without the care and assistance of others. (1) Schizophrenia: 03/24/2020. -The patient has been admitted to the [facility]. His being encouraged to actively participate in individual, group, and activity therapies. -The patient indicates that his psychiatric symptoms respond favorably to Prolixin Decanoate. However, he says that what he does not like about Prolixin is that it "works for couple weeks and then stops working." It may be that the patient has been receiving his injections of Prolixin Decanoate less frequently than may be required in his case. He was asked to consider the option of continuing Prolixin decanoate, but with more frequent dosage administration, versus switching to Haldol with the goal of converting to Haldol decanoate once stabilized. -We will begin haloperidol 5 mg p.o. twice daily with benztropine 2 mg every morning. Material risks and anticipated benefit of both of these medications were reviewed with the patient. He asked several questions and indicated understanding. 03/25 -Continue oral Haldol, and transition to decanoate if tolerated/effective. -Attending and participating in groups, explore options for family meeting. Coordinate care with his [facility] Monisha. 03/26 -Continue Haldol, patient improving but may need to consider increased dose. Encouraged him to utilize PRN if needed. -warp worker assist him to call the landlord to clarify any issues related to the episode prior to admission. 03/27 - Continue haloperidol, patient declining to increase scheduled dosing at this time but is aware of prn availability - did request a prn dose this afternoon - Received word that patient is no longer permitted to stay in his apartment, assist patient with exploration of other housing options and engaging parents in conversation - Fasting glucose and lipid panel ordered for tomorrow morning (2) Hypertension: 03/24/2020 -We will continue to monitor the patient's blood pressure. He reports that he has a history of hypertension and his his blood pressure was elevated at admission. He tells us that he has not been taking an antihypertensive. We we will begin lisinopril 5 mg in the morning. (3) Insomnia: 03/24/2020. -Patient reports that he has frequently interrupted sleep regardless of his mood, and essentially describes primary insomnia. He notes that, in the past, he has responded favorably to hydroxyzine. -The patient is obese, and his pattern of intermittent insomnia would suggest the need to rule out obstructive sleep apnea. This was discussed with the patient and it was recommended that he follow-up on this with a primary care provider following discharge. -I will offer the patient trazodone 50 mg at bedtime as a standing order for sleep. (4) Anxiety: 03/24/2020 -Patient reports that he is often anxious and that this occurs regardless of whether he is feeling "up" or "down." Patient was provided with information regarding mindfulness techniques that can be used to manage anxiety when it occurs. -The patient was also advised that he can take hydroxyzine as needed for anxiety during the day. Inventory Assets Strengths: Insight into his need for treatment. Cooperative. Committed to recovery. Reports a positive work history. Needs: Resolution of auditory hallucinations. Improved sleep. Resolution of disorganized behaviors. Risk Factors Assessment Male: Yes : Yes Do You Have Access To A Gun?: No Health Problems: Yes Mental Health Diagnoses: Yes Substance Use Disorders: No Previous Attempt: No Family History of Suicide: No Previous Psychiatric Hospitalization: Yes Hopelessness: No Smoker: Yes (Patient describes himself as a "sometimes" smoker and does not experience nicotine withdrawal.) Protective Factors Assessment Jewish Beliefs: Yes (The patient reports that he is "a combination of Taoist and Mosque.") : No Responsible for Young Children: No Employed: No (seeking employment) Stable Relationships: Yes Supportive Family: Yes Good Rapport with Provider: Yes Absence of Any Risk Factors Above: No Interval History Identifying Information INEZ MORTON is a 34-year-old M who currently lives in alone in [place], has a history of schizoaffective disorder bipolar type vs schizophrenia, and was admitted on 03/24/20 02:59 on a 201 voluntary commitment for psychosis and related disorganized behavior such as breaking through a partition/wall and into someone else's apartment. Chief Complaint "Goo--bad, real bad...ok I guess." Review of Systems Notes Constitutional: denied Cardiovascular: denied Respiratory: denied Gastrointestinal: denied Neurological: denied Psychiatric: denies symptoms other than stated above Total of at least 10 systems reviewed, pertinent positives as above and in HPI. Sleep Information Total Hours of Sleep: 7.25 Sleep Comments: . Meal Information Percent Meal Consumed - Breakfast: 35 Percent Meal Consumed - Lunch: 100 Percent Meal Consumed - Dinner: 100 Subjective Subjective Patient was seen & assessed and interval progress reviewed with treatment team. Staff report the patient attends most group programming during the day, but was observed to be more isolated during the evenings over the weekend. He remains intermittently disorganized and psychotic. Pt is to reach out to his landlord today to determine if he is still able to stay in his apartment. Pt was seen today to assess progress since admission. Pt begins to state that he is "goo--" but then reports "bad, real bad." After walking to the interview space, the patient informs this provider that "within this past hour" he had received word from his landlord that he will not be permitted to stay in is apartment. Pt is able to progress through this upset and indicated he is now planning to call his parents to share this information and request their assistance in exploring alternative housing options. Pt states that prior to this phone call, he was noticing improvement in his thoughts and mood. He states "my thoughts have precious cleared up, I'm more aware of my surroundings." Pt states that he has yet to utilize prn of haloperidol and wishing to continue his current BID dosing as "if I haven't needed it yet, maybe I don't need it. I think I'm good with what I'm taking." Pt denies SI as well as additional needs or concerns at this time. Physical Exam Psychiatric Orientation: alert, oriented x 3 and cooperative (and pleasant) Apperance: appropriately dressed, appropriately groomed and appeared stated age Eye Contact: good eye contact Motor Behavior: steady gait and station and no abnormal motor movements (occasionally rubbing fingers through hair ) Speech: normal rate/rhythm/volume of speech Affect: + anxious affect and mood congruent with affect Mood: + depressed mood ("bad, it's all bad") and + anxious mood Thought Process: goal directed thought process, clear/coherent thought process and + concrete thought process Thought Content: + preoccupation (with losing his housing) and reality based without delusions (at this time, though admits to disorganized thoughts intermittently ) Suicidal Thoughts: denies suicidal thoughts and denies suicidal intent Homicidal Thoughts: denies homicidal thoughts Hallucinations: no auditory hallucinations and no visual hallucinations Cognition: attention grossly intact and language grossly intact Insight: + limited insight Judgement: + limited judgement Vital Signs (Past 24 Hours) Last Vital Signs Temp 37.2 C 03/26/20 21:25 Pulse 88 03/27/20 07:03 Resp 16 03/27/20 07:03 BP 115/77 03/27/20 07:05 Pulse Ox 95 03/24/20 02:47 Results & Data ([facility]) Current Inpatient Medications Current Inpatient Medications: Current Inpatient Medications Acetaminophen (Tylenol) 650 mg PO Q4H PRN PRN Reason: Headache or Minor Fever Stop: 04/23/20 03:34 Al Hydrox/Mg Hydrox/Simethicone (Maalox) 30 ml PO Q4H PRN PRN Reason: GI Upset Stop: 04/23/20 03:34 Benztropine Mesylate (Cogentin) 1 mg PO Q6H PRN PRN Reason: EPS Stop: 04/23/20 03:38 Benztropine Mesylate (Cogentin) 2 mg PO QAM [facility] Stop: 04/24/20 08:59 Last Admin: 03/27/20 08:39 Dose: 2 mg Documented by: Benztropine Mesylate (Cogentin) 2 mg IM DAILY PRN PRN Reason: Dystonic reaction Stop: 04/23/20 14:25 Bismuth Subsalicylate (Kaopectate) 15 ml PO PRN PRN PRN Reason: Loose Stool Stop: 04/23/20 03:34 Haloperidol (Haldol) 5 mg PO Q4H PRN PRN Reason: Psychosis Stop: 04/23/20 03:38 Haloperidol (Haldol) 5 mg PO BID [facility] Stop: 04/23/20 20:59 Last Admin: 03/27/20 08:39 Dose: 5 mg Documented by: Hydroxyzine HCl (Vistaril) 50 mg PO HSZ PRN PRN Reason: Insomnia Stop: 04/23/20 03:34 Hydroxyzine HCl (Vistaril) 25 mg PO Q4H PRN PRN Reason: Anxiety Stop: 04/23/20 03:34 Lisinopril (Zestril) 5 mg PO QAM [facility] Stop: 04/24/20 08:59 Last Admin: 03/27/20 08:39 Dose: 5 mg Documented by: Magnesium Hydroxide (Milk Of Magnesia) 30 ml PO DAILY PRN PRN Reason: Constipation Stop: 04/23/20 03:34 Miscellaneous (Remove Nicoderm Patch) 1 ea N/A DAILY@[id number] [facility] Stop: 04/24/20 08:58 Last Admin: 03/27/20 08:43 Dose: 1 ea Documented by: Nicotine (Nicoderm Cq) 21 mg TD QAM [facility] Stop: 04/23/20 10:44 Last Admin: 03/27/20 12:01 Dose: Not Given Documented by: Nicotine Polacrilex (Nicorette 2mg) 1 piece MT PRN PRN PRN Reason: nicotine cravings Stop: 04/23/20 10:36 Last Admin: 03/26/20 08:46 Dose: 1 piece Documented by: Sodium Chloride (Prentiss Nasal) 1 - 2 sprays NA PRN PRN PRN Reason: Nasal Dryness/Congestion Stop: 04/23/20 03:34 Trazodone HCl (Desyrel) 50 mg PO HS [facility] Stop: 04/23/20 21:59 Last Admin: 03/26/20 21:39 Dose: 50 mg Documented by: Mental Health & Subst Abuse Tx Therapist Name of Therapist: None Bias Machine Operator Name of Bias Machine Operator: Monisha Silva [facility]SU Post Discharge Appointments Primary Care Physician Name Of Family Doctor: Dr. Badillo, [facility]
[2020-03-27] MEDS: TRAZODONE HCL 50 MG TAB PO SCH (21:36)
[2020-03-28] MEDS: NICOTINE 21 MG/24 HR TDSY TD SCH (08:32)
[2020-03-28] MEDS: BENZTROPINE MESYLATE 1 MG TAB PO SCH (08:33)
[2020-03-28] MEDS: haloperidoL 5 MG TAB PO SCH ×2 (08:33→21:24)
[2020-03-28] MEDS: lisinopriL 5 MG TAB PO SCH (08:34)
[2020-03-28 09:14] LABS: Glucose Fasting 94 mg/dl (70-99)
[2020-03-28 09:19] LABS: Chol HDL Ratio 5; Cholesterol 166 mg/dl (0-200); HDL Cholesterol 33 mg/dl; LDL Cholesterol Calculated 92 mg/dl; Triglycerides 204 mg/dl (0-150); VLDL Cholesterol 41 mg/dl
--- NOTE | 2020-03-28 12:11 | Psychiatric Progress Note ---
Date of Service March 28, 2020 Impression / Recommendations Impression This 34-year-old man with a history of schizoaffective disorder versus schizophrenia, with symptoms beginning in 15 years ago when he was in college. The admission was precipitated by the fact that he broke through what was essentially a wall that divided his apartment from the neighboring apartment and a larger, converted building had once been a single-family home. Although his memory was that the neighbor was not home, at least not at the time that he entered the apartment, the report we have received is that the neighbor was, in fact, home and she called the police. The police then reportedly told the pa tient his option was to come to the emergency room for evaluation or to be arrested for breaking and entering. The patient attributes this behavior to having been in a "dreamlike" or "sleepwalking" haze, and that he began having vivid dreams and difficulty awakening from the dreams since beginning meloxicam about a week ago for arthritis and a hip (reportedly the result of an old injury). However, the report we have is that the bilingual case manager had had been unable to get the patient to take a call from him for several weeks and that he had been nonadherent with his outpatient medication. The patient acknowledges that he had stopped taking his outpatient psychiatric medication, namely Prolixin decanoate 25 mg intramuscularly once a month. (This has not been confirmed as the correct dose schedule.) The patient acknowledges that he typically begins to experience auditory hallucinations about "2 weeks" after his most recent dose of IM Prolixin," and, further, he seems to recall a fair number of details from the circumstance that precipitated the admission, namely breaking through a drywalled doorway into someone else's apartment because he was hearing the sounds of a green party and people talking on the other side of the doorway and wanted to explore. The patient does seem to have insight into the fact that his symptoms of hearing voices are a psychiatric symptom in his case and that he needs psychiatric medications. He was started on Haldol with a plan to transition to Haldol Decanoate. In addition to the Prolixin Decanoate, he was also prescribed Zyprexa 10 mg at bedtime, Depakote 500 mg at bedtime, and Wellbutrin SR 150 mg daily with benztropine 1 mg daily, but had not been taking any of them for about a month, so they were held on admission. Pt has reported improvement in organization of thoughts with scheduled haloperidol - did obtain initial injection of 100mg IM of haloperidol decanoate on 03/28/2020. Inpatient treatment remains medically necessary as he is unable to provide for his own basic needs without the care and assistance of others. (1) Schizophrenia: 03/24/2020. -The patient [facility]. His being encouraged to actively participate in individual, group, and activity therapies. -The patient indicates that his psychiatric symptoms respond favorably to Prolixin Decanoate. However, he says that what he does not like about Prolixin is that it "works for couple weeks and then stops working." It may be that the patient has been receiving his injections of Prolixin Decanoate less frequently than may be required in his case. He was asked to consider the option of continuing Prolixin decanoate, but with more frequent dosage administration, versus switching to Haldol with the goal of converting to Haldol decanoate once stabilized. -We will begin haloperidol 5 mg p.o. twice daily with benztropine 2 mg every morning. Material risks and anticipated benefit of both of these medications were reviewed with the patient. He asked several questions and indicated understanding. 03/25 -Continue oral Haldol, and transition to decanoate if tolerated/effective. -Attending and participating in groups, explore options for family meeting. Coordinate care with his [facility] Monisha. 03/26 -Continue Haldol, patient improving but may need to consider increased dose. Encouraged him to utilize PRN if needed. -hot iron worker assist him to call the landlord to clarify any issues related to the episode prior to admission. 03/27 - Continue haloperidol, patient declining to increase scheduled dosing at this time but is aware of prn availability - did request a prn dose this afternoon - Received word that patient is no longer permitted to stay in his apartment, assist patient with exploration of other housing options and engaging parents in conversation - Fasting glucose and lipid panel ordered for tomorrow morning 03/28 - Continue oral haloperidol - after discussion of risks, benefits, and potential side effects, patient is agreeable with initiation of haloperidol decanoate - pt was provided with 100mg IM injection today - Fasting labs obtained this morning: triglycerides elevated at 204, other values WNL; fasting glucose - 94; cholesterol - 166; LDL - 92; HDL - 33 - Pt reports speaking with his family regarding housing options - they are willing to assist him in moving into their [place] until the patient is able to secure another apartment - patient denies concerns about getting to his appointments, getting groceries, and caring for self independently. - Continue to coordinate with outpatient supports to discuss appropriate discharge planning (2) Hypertension: 03/24/2020 -We will continue to monitor the patient's blood pressure. He reports that he has a history of hypertension and his his blood pressure was elevated at admission. He tells us that he has not been taking an antihypertensive. We we will begin lisinopril 5 mg in the morning. (3) Insomnia: 03/24/2020. -Patient reports that he has frequently interrupted sleep regardless of his mood, and essentially describes primary insomnia. He notes that, in the past, he has responded favorably to hydroxyzine. -The patient is obese, and his pattern of intermittent insomnia would suggest the need to rule out obstructive sleep apnea. This was discussed with the patient and it was recommended that he follow-up on this with a primary care provider following discharge. -I will offer the patient trazodone 50 mg at bedtime as a standing order for sleep. (4) Anxiety: 03/24/2020 -Patient reports that he is often anxious and that this occurs regardless of whether he is feeling "up" or "down." Patient was provided with information regarding mindfulness techniques that can be used to manage anxiety when it occurs. -The patient was also advised that he can take hydroxyzine as needed for anxiety during the day. Inventory Assets Strengths: Insight into his need for treatment. Cooperative. Committed to recovery. Reports a positive work history. Needs: Resolution of auditory hallucinations. Improved sleep. Resolution of disorganized behaviors. Risk Factors Assessment Male: Yes : Yes Do You Have Access To A Gun?: No Health Problems: Yes Mental Health Diagnoses: Yes Substance Use Disorders: No Previous Attempt: No Family History of Suicide: No Previous Psychiatric Hospitalization: Yes Hopelessness: No Smoker: Yes (Patient describes himself as a "sometimes" smoker and does not experience nicotine withdrawal.) Protective Factors Assessment Synagogue Beliefs: Yes (The patient reports that he is "a combination of Temple and Buddhist.") : No Responsible for Young Children: No Employed: No (seeking employment) Stable Relationships: Yes Supportive Family: Yes Good Rapport with Provider: Yes Absence of Any Risk Factors Above: No Interval History Identifying Information INEZ MORTON is a 34-year-old M who currently lives in alone in [place], has a history of schizoaffective disorder bipolar type vs schizophrenia, and was admitted on 03/24/20 02:59 on a 201 voluntary commitment for psychosis and related disorganized behavior such as breaking through a partition/wall and into someone else's apartment. Chief Complaint "I'm good...bad. I don't know. Knowing is better than not knowing." Review of Systems Notes Constitutional: denied Cardiovascular: denied Respiratory: denied Gastrointestinal: denied Neurological: denied Psychiatric: denies symptoms other than stated above Total of at least 10 systems reviewed, pertinent positives as above and in HPI. Sleep Information Total Hours of Sleep: 7 Sleep Comments: . Meal Information Percent Meal Consumed - Breakfast: 100 Percent Meal Consumed - Lunch: 100 Percent Meal Consumed - Dinner: 80 Subjective Subjective Patient was seen & assessed and interval progress reviewed with nursing and social work. Staff report the patient requested a prn dose of haloperidol last evening. He is continuing to explore housing options and is scheduled for a meeting with his real estate associate attorney, his bilingual case manager, and our social work team this morning to discuss the recommendation that he find alternative housing. Pt was seen today to assess progress since admission. Pt states initially that he is "good", then retracts that statement and says "bad." Finally, the patient is able to say "knowing is better than not knowing." He states he is referring to finding out that he has been asked to vacate his apartment and find alternative housing options. Pt stated that this news was overwhelming last evening and contributed to patient feeling as though "I was in a haze. I wasn't hearing voices, but I couldn't really think clearly." Pt states it was because of this sensation that he requested a prn of haloperidol. Pt states that generally, his 5mg BID dose of haloperidol is sufficient. Pt does admit to stress related to leaving his apartment and finding different housing, and feels he is managing this appropriately with his current scheduled dosing. We revisited the idea of an injectable medication, and patient is agreeable with initiating haloperidol decanoate today. Risks, benefits, and potential side effects were reviewed. Pt did receive 100mg IM injection after lunch. Pt does state that he has been communicating with his parents, who are reportedly supportive. At this time, patient believes he may be staying temporarily in the [place], and is able to verbalize how he plans to care for his needs in that setting, but would ideally have additional support. Pt states they are still discussing options. Pt denies SI and actually states he is hopeful for discharge in the next few days. He denied any additional needs or concerns at this time. Physical Exam Psychiatric Orientation: alert, oriented x 3 and cooperative (and pleasant ) Apperance: appropriately dressed, appropriately groomed and appeared stated age Eye Contact: good eye contact Motor Behavior: no abnormal motor movements Speech: normal rate/rhythm/volume of speech Affect: + anxious affect (appearing distracted and preoccupied) Mood: + anxious mood (admits to feeling overwhelmed with housing situation) Thought Process: goal directed thought process and + concrete thought process Thought Content: + preoccupation (with discharge planning and housing options) and reality based without delusions; not paranoid and no hopelessness Suicidal Thoughts: denies suicidal thoughts and denies suicidal intent Homicidal Thoughts: denies homicidal thoughts Hallucinations: no auditory hallucinations and no visual hallucinations Cognition: recent memory grossly intact, attention grossly intact and language grossly intact Estimated Intelligence: consistent with education level Insight: + fair insight Judgement: + fair judgement Vital Signs (Past 24 Hours) Last Vital Signs Temp 36.4 C L 03/28/20 06:00 Pulse 114 H 03/28/20 06:26 Resp 16 03/28/20 06:00 BP 121/82 03/28/20 06:26 Pulse Ox 95 03/24/20 02:47 Results & Data ([facility]) Laboratory Results Laboratory Results - last 24 hr 03/28/20 07:59 Fasting Glucose 94 Triglycerides 204 H Cholesterol 166 LDL Cholesterol, Calc 92 VLDL Cholesterol, Calc 41 HDL Cholesterol 33 Cholesterol/HDL Ratio 5 Specimen Hemolysis Current Inpatient Medications Current Inpatient Medications: Current Inpatient Medications Acetaminophen (Tylenol) 650 mg PO Q4H PRN PRN Reason: Headache or Minor Fever Stop: 04/23/20 03:34 Al Hydrox/Mg Hydrox/Simethicone (Maalox) 30 ml PO Q4H PRN PRN Reason: GI Upset Stop: 04/23/20 03:34 Benztropine Mesylate (Cogentin) 1 mg PO Q6H PRN PRN Reason: EPS Stop: 04/23/20 03:38 Benztropine Mesylate (Cogentin) 2 mg PO QAM [facility] Stop: 04/24/20 08:59 Last Admin: 03/28/20 08:33 Dose: 2 mg Documented by: Benztropine Mesylate (Cogentin) 2 mg IM DAILY PRN PRN Reason: Dystonic reaction Stop: 04/23/20 14:25 Bismuth Subsalicylate (Kaopectate) 15 ml PO PRN PRN PRN Reason: Loose Stool Stop: 04/23/20 03:34 Haloperidol (Haldol) 5 mg PO Q4H PRN PRN Reason: Psychosis Stop: 04/23/20 03:38 Last Admin: 03/27/20 16:11 Dose: 5 mg Documented by: Haloperidol (Haldol) 5 mg PO BID [facility] Stop: 04/23/20 20:59 Last Admin: 03/28/20 08:33 Dose: 5 mg Documented by: Hydroxyzine HCl (Vistaril) 50 mg PO HSZ PRN PRN Reason: Insomnia Stop: 04/23/20 03:34 Hydroxyzine HCl (Vistaril) 25 mg PO Q4H PRN PRN Reason: Anxiety Stop: 04/23/20 03:34 Lisinopril (Zestril) 5 mg PO QAM [facility] Stop: 04/24/20 08:59 Last Admin: 03/28/20 08:34 Dose: 5 mg Documented by: Magnesium Hydroxide (Milk Of Magnesia) 30 ml PO DAILY PRN PRN Reason: Constipation Stop: 04/23/20 03:34 Miscellaneous (Remove Nicoderm Patch) 1 ea N/A DAILY@[id number] [facility] Stop: 04/24/20 08:58 Last Admin: 03/28/20 08:33 Dose: Not Given Documented by: Nicotine (Nicoderm Cq) 21 mg TD QAM [facility] Stop: 04/23/20 10:44 Last Admin: 03/28/20 08:32 Dose: 21 mg Documented by: Nicotine Polacrilex (Nicorette 2mg) 1 piece MT PRN PRN PRN Reason: nicotine cravings Stop: 04/23/20 10:36 Last Admin: 03/26/20 08:46 Dose: 1 piece Documented by: Sodium Chloride ([place] Nasal) 1 - 2 sprays NA PRN PRN PRN Reason: Nasal Dryness/Congestion Stop: 04/23/20 03:34 Trazodone HCl (Desyrel) 50 mg PO HS [facility] Stop: 04/23/20 21:59 Last Admin: 03/27/20 21:36 Dose: 50 mg Documented by: Mental Health & Subst Abuse Tx Psychiatrist Name of Psychiatrist: Nain Tang Psychiatrist's Date of Appointment with Psychiatrist: 04/05/20 Time of Appointment with Psychiatrist: 11:30 a.m. Psychiatric Appointment Comment: ([facility]) Therapist Name of Therapist: None Commercial Decorator Name of Commercial Decorator: Monisha Mccall [facility] Phone Number for Commercial Decorator: [phone] Post Discharge Appointments Primary Care Physician Name Of Family Doctor: Dr. Badillo, [email or web address]
[2020-03-28] MEDS ORDERED: HALOPERIDOL DECANOATE INJ 50 MG/ML VIAL IM ONE (13:30)
[2020-03-28] MEDS: TRAZODONE HCL 50 MG TAB PO SCH (21:24)
[2020-03-29] MEDS: lisinopriL 5 MG TAB PO SCH (08:53)
[2020-03-29] MEDS: BENZTROPINE MESYLATE 1 MG TAB PO SCH (08:53)
[2020-03-29] MEDS: haloperidoL 5 MG TAB PO SCH ×2 (08:53→21:02)
[2020-03-29] MEDS: NICOTINE 21 MG/24 HR TDSY TD SCH (08:56)
--- NOTE | 2020-03-29 11:36 | Psychiatric Progress Note ---
Date of Service March 29, 2020 Impression / Recommendations Impression This 34-year-old man with a history of schizoaffective disorder versus schizophrenia, with symptoms beginning 15 years ago when he was in college. The admission was precipitated by the fact that he broke through what was essentially a wall that divided his apartment from the neighboring apartment while floridly psychotic, and what he described as a "dreamlike" or "sleepwalking" haze. He has poor memory from the events leading up to hospitalization, and his case specialist reported she had had been unable to get the patient to take a call from her for several weeks and that he had been nonadherent with his outpatient medication. The patient acknowledges that he had missed his last Prolixin decanoate 25 mg injection. He is been switched to Haldol (initially on 10 mg a day oral, received first decanoate 100 mg injection 03/28/2020). As an outpatient, he was also prescribed Zyprexa 10 mg at bedtime, Depakote 500 mg at bedtime, and Wellbutrin SR 150 mg daily with benztropine 1 mg daily, but had not been taking any of them for about a month, so they were held on admission. He is improving and that he is more organized, but continues to have mood and anxiety symptoms as a result of the consequences of the incident prior to admission. He is being evicted and has to find new housing, and is struggling with that. Inpatient treatment remains medically necessary as he is unable to provide for his own basic needs without the care and assistance of others. (1) Schizophrenia: 03/24/2020. -The patient has been admitted to the [facility] behavioral health unit. His being encouraged to actively participate in individual, group, and activity therapies. -The patient indicates that his psychiatric symptoms respond favorably to Prolixin Decanoate. However, he says that what he does not like about Prolixin is that it "works for couple weeks and then stops working." It may be that the patient has been receiving his injections of Prolixin Decanoate less frequently than may be required in his case. He was asked to consider the option of continuing Prolixin decanoate, but with more frequent dosage administration, versus switching to Haldol with the goal of converting to Haldol decanoate once stabilized. -We will begin haloperidol 5 mg p.o. twice daily with benztropine 2 mg every morning. Material risks and anticipated benefit of both of these medications were reviewed with the patient. He asked several questions and indicated understanding. 03/25 -Continue oral Haldol, and transition to decanoate if tolerated/effective. -Attending and participating in groups, explore options for family meeting. Coordinate care with his [facility] Monisha. 03/26 -Continue Haldol, patient improving but may need to consider increased dose. Encouraged him to utilize PRN if needed. -linen room worker assist him to call the landlord to clarify any issues related to the episode prior to admission. 03/27 - Continue haloperidol, patient declining to increase scheduled dosing at this time but is aware of prn availability - did request a prn dose this afternoon - Received word that patient is no longer permitted to stay in his apartment, assist patient with exploration of other housing options and engaging parents in conversation - Fasting glucose and lipid panel ordered for tomorrow morning 03/28 - Continue oral haloperidol - after discussion of risks, benefits, and potential side effects, patient is agreeable with initiation of haloperidol decanoate - pt was provided with 100mg IM injection today - Fasting labs obtained this morning: triglycerides elevated at 204, other values WNL; fasting glucose - 94; cholesterol - 166; LDL - 92; HDL - 33 - Pt reports speaking with his family regarding housing options - they are willing to assist him in moving into their [place] until the patient is able to secure another apartment - patient denies concerns about getting to his appointments, getting groceries, and caring for self independently. - Continue to coordinate with outpatient supports to discuss appropriate discharge planning 03/29 -Continued slow improvement in thought organization, but remains extremely anxious, particularly around discharge and housing plans. -Continue oral haloperidol 5 mg twice daily for now, and can taper once psychosis resolves. -Staff to assist patient in calling family to determine how they can support him while he looks for new housing. Coordinate with his [facility] who is also assisting with this. (2) Hypertension: 03/24/2020 -We will continue to monitor the patient's blood pressure. He reports that he has a history of hypertension and his his blood pressure was elevated at admission. He tells us that he has not been taking an antihypertensive. We we will begin lisinopril 5 mg in the morning. (3) Insomnia: 03/24/2020. -Patient reports that he has frequently interrupted sleep regardless of his mood, and essentially describes primary insomnia. He notes that, in the past, he has responded favorably to hydroxyzine. -The patient is obese, and his pattern of intermittent insomnia would suggest the need to rule out obstructive sleep apnea. This was discussed with the patient and it was recommended that he follow-up on this with a primary care provider following discharge. -I will offer the patient trazodone 50 mg at bedtime as a standing order for sleep. (4) Anxiety: 03/24/2020 -Patient reports that he is often anxious and that this occurs regardless of whether he is feeling "up" or "down." Patient was provided with information regarding mindfulness techniques that can be used to manage anxiety when it occurs. -The patient was also advised that he can take hydroxyzine as needed for anxiety during the day. Inventory Assets Strengths: Insight into his need for treatment. Cooperative. Committed to [employer]. Reports a positive work history. Needs: Resolution of auditory hallucinations. Improved sleep. Resolution of disorganized behaviors. Risk Factors Assessment Male: Yes : Yes Do You Have Access To A Gun?: No Health Problems: Yes Mental Health Diagnoses: Yes Substance Use Disorders: No Previous Attempt: No Family History of Suicide: No Previous Psychiatric Hospitalization: Yes Hopelessness: No Smoker: Yes (Patient describes himself as a "sometimes" smoker and does not experience nicotine withdrawal.) Protective Factors Assessment Confucianist Beliefs: Yes (The patient reports that he is "a combination of Latter-Day and Amish.") : No Responsible for Young Children: No Employed: No (seeking employment) Stable Relationships: Yes Supportive Family: Yes Good Rapport with Provider: Yes Absence of Any Risk Factors Above: No Interval History Identifying Information INEZ MORTON is a 34-year-old M who currently lives in alone in [place], has a history of schizoaffective disorder bipolar type vs schizophrenia, and was admitted on 03/24/20 02:59 on a 201 voluntary commitment for psychosis and related disorganized behavior such as breaking through a partition/wall and into someone else's apartment. Chief Complaint " Okay". Review of Systems Sleep Information Total Hours of Sleep: 6.75 Sleep Comments: . Meal Information Percent Meal Consumed - Breakfast: 100 Percent Meal Consumed - Lunch: 100 Percent Meal Consumed - Dinner: 100 Subjective Subjective Patient was seen & assessed and interval progress reviewed with treatment team. Staff report the patient had a difficult meeting with the aids social worker, kenyon at [facility], and his case specialist yesterday. They discussed that in the eviction notice had been posted on his apartment indicating he cannot return, and that his case specialist would assist with ensuring construction is completed to fix the wall and to get the patient's car keys. They made plans for him to submit a letter to his landlord requesting that his belongings be held for 30 days while he finds alternate housing. He agreed to contact his family to see if he could stay with them temporarily while looking for new housing. Patient reported feeling more depressed and "thrown off" as a result of this news, and staff attempted to assist him to process the eviction notice. He reported ongoing paranoia, but improved from admission. He was more isolative in the afternoon, and appeared more depressed. On my assessment today, he states that he is still unsure where he will go at discharge, stating he spoke with his parents and they were out of the state, possibly looking for a house to buy, but he is not sure. He says they told him he could stay at their camp, which is fairly remote and about 20 minutes away from [place], which is the closest town. He is not sure if he can stay with his parents, and seems confused about the question. He denies suicidal thoughts, and feels his thinking continues to improve. He is very anxious about his belongings and housing situation, stating repeatedly that he needs to make sure that he can sisal picker his belongings and has permission from his landlord to do so, but does not seem to understand the process for this. His car is also at his apartment, and he is not sure how he will get it. Despite the limited discharge planning, he would like to leave the hospital "soon." Physical Exam Psychiatric Orientation: alert and cooperative Apperance: appropriately dressed and appropriately groomed Overweight male appearing stated age. Casually dressed, adequately groomed. Standing in no acute distress, with increased psychomotor activity. Eye Contact: good eye contact Motor Behavior: steady gait and station and + psychomotor agitation Moving nonstop during the assessment, shifting his weight, jiggling his leg, appears very restless and fidgety. Speech is somewhat halting, but spontaneous Affect: + anxious affect; + mood not congruent with affect "Good." Mood: + anxious mood Improved from admission Thought Process: + perseveration Thought Content: + preoccupation and reality based without delusions Mild disorganization, paranoia Suicidal Thoughts: denies suicidal thoughts Homicidal Thoughts: denies homicidal thoughts Hallucinations: no auditory hallucinations Cognition: attention grossly intact and language grossly intact; + recent memory not intact Insight: + fair insight Judgement: + fair judgement Vital Signs (Past 24 Hours) Last Vital Signs Temp 36.6 C 03/29/20 06:58 Pulse 111 H 03/29/20 07:00 Resp 18 03/29/20 06:58 BP 107/73 03/29/20 07:00 Pulse Ox 95 03/24/20 02:47 Results & Data ([facility]) Current Inpatient Medications Current Inpatient Medications: Current Inpatient Medications Acetaminophen (Tylenol) 650 mg PO Q4H PRN PRN Reason: Headache or Minor Fever Stop: 04/23/20 03:34 Al Hydrox/Mg Hydrox/Simethicone (Maalox) 30 ml PO Q4H PRN PRN Reason: GI Upset Stop: 04/23/20 03:34 Benztropine Mesylate (Cogentin) 1 mg PO Q6H PRN PRN Reason: EPS Stop: 04/23/20 03:38 Benztropine Mesylate (Cogentin) 2 mg PO QAM [facility] Stop: 04/24/20 08:59 Last Admin: 03/29/20 08:53 Dose: 2 mg Documented by: Benztropine Mesylate (Cogentin) 2 mg IM DAILY PRN PRN Reason: Dystonic reaction Stop: 04/23/20 14:25 Bismuth Subsalicylate (Kaopectate) 15 ml PO PRN PRN PRN Reason: Loose Stool Stop: 04/23/20 03:34 Haloperidol (Haldol) 5 mg PO Q4H PRN PRN Reason: Psychosis Stop: 04/23/20 03:38 Last Admin: 03/27/20 16:11 Dose: 5 mg Documented by: Haloperidol (Haldol) 5 mg PO BID NICOLAS Stop: 04/23/20 20:59 Last Admin: 03/29/20 08:53 Dose: 5 mg Documented by: Hydroxyzine HCl (Vistaril) 50 mg PO HSZ PRN PRN Reason: Insomnia Stop: 04/23/20 03:34 Hydroxyzine HCl (Vistaril) 25 mg PO Q4H PRN PRN Reason: Anxiety Stop: 04/23/20 03:34 Lisinopril (Zestril) 5 mg PO QAM [facility] Stop: 04/24/20 08:59 Last Admin: 03/29/20 08:53 Dose: 5 mg Documented by: Magnesium Hydroxide (Milk Of Magnesia) 30 ml PO DAILY PRN PRN Reason: Constipation Stop: 04/23/20 03:34 Miscellaneous (Remove Nicoderm Patch) 1 ea N/A DAILY@[id number] [facility] Stop: 04/24/20 08:58 Last Admin: 03/29/20 08:56 Dose: Not Given Documented by: Nicotine (Nicoderm Cq) 21 mg TD QAM [facility] Stop: 04/23/20 10:44 Last Admin: 03/29/20 08:56 Dose: Not Given Documented by: Nicotine Polacrilex (Nicorette 2mg) 1 piece MT PRN PRN PRN Reason: nicotine cravings Stop: 04/23/20 10:36 Last Admin: 03/26/20 08:46 Dose: 1 piece Documented by: Sodium Chloride (Hooker Nasal) 1 - 2 sprays NA PRN PRN PRN Reason: Nasal Dryness/Congestion Stop: 04/23/20 03:34 Trazodone HCl (Desyrel) 50 mg PO HS [facility] Stop: 04/23/20 21:59 Last Admin: 03/28/20 21:24 Dose: 50 mg Documented by: Mental Health & Subst Abuse Tx Psychiatrist Name of Psychiatrist: Nain Tang Psychiatrist's Date of Appointment with Psychiatrist: 04/05/20 Time of Appointment with Psychiatrist: 11:30 a.m. Psychiatric Appointment Comment: ([facility] Office) Therapist Name of Therapist: None V Belt Coverer Name of V Belt Coverer: [facility] Phone Number for V Belt Coverer: [phone] Post Discharge Appointments Primary Care Physician Name Of Family Doctor: Dr. [place]illo, [facility] [place] [facility]
[2020-03-29] MEDS: NICOTINE POLACRILEX 2 MG GUM MT PRN (17:22)
[2020-03-29] MEDS: TRAZODONE HCL 50 MG TAB PO SCH (21:02)
[2020-03-30] MEDS: BENZTROPINE MESYLATE 1 MG TAB PO SCH (08:15)
[2020-03-30] MEDS: haloperidoL 5 MG TAB PO SCH (08:15)
[2020-03-30] MEDS: lisinopriL 5 MG TAB PO SCH (08:15)
[2020-03-30] MEDS: NICOTINE 21 MG/24 HR TDSY TD SCH (08:17)
--- NOTE | 2020-03-30 09:51 | Discharge Summary ---
Date of Service March 30, 2020 History of Present Illness The patient is a 34-year-old man with a known diagnosis of schizoaffective disorder bipolar type, and a history of multiple previous psychiatric hospitalizations. He reports that he had been doing fairly well in the community until a week or 2 ago at which point he was started on a new medication for osteoarthritis, namely meloxicam, and immediately thereafter he began experiencing frequently interrupted sleep, vivid dreams, and difficulty distinguishing between dreams and reality. The admission was precipitated by the fact (as presented by the patient) that, in a dreamlike state, he had gone to a doorway that had been enclosed at least on one side by drywall in order to separate the second floor of the house into 2 separate apartments, and pushed to the doorway and entered into the apartment of another person. According to the patient, the other person was not home, and while in the other apartment he "came to" and realized what he had done. He said that he was very glad that the occupant of the neighboring apartment was not home and recognizes that this would have been extremely frightening for her, and could have been dangerous for him. (Our report is that the neighbor was in fact home, and called the police. We have been told that she is not planning to press charges and recognizes the patient has a mental illness.) The patient also acknowledges hearing things that he believes other people are not hearing and that he cannot i link to a specific source. For example, on the night that he entered his neighbor's apartment by pushing through a drywall divider he said that he was hearing the noise of music and people talking through the wall, but realize there was no one there once he entered the other person's apartment. He also says that he sometimes hears voices say things such as "brush her teeth," or "it is time to go to bed." He tells us that he knows that in each of these instances the voices are telling him things that he has already thought of, and that they never tell him to do something that he would not normally do on his own. Although the patient indicates that he feels that the addition of meloxicam explains the exacerbation of his psychiatric symptoms, the patient acknowledges that he had stopped taking his outpatient medications, normally Prolixin Decanoate 25 mg once a month (per the patient). When asked why he stopped, he said "I do not like that medicine. It works for a couple weeks and then it stops working until I get my neck shot." (We are trying to confirm if he was getting Prolixin Decanoate every 4 weeks, rather than every 2 weeks as is generally recommended.) We talked about the option of going back on Prolixin decanoate 25 mg IM, but taking it every 2 weeks rather than every 4 weeks. We also discussed the option of switching to a 30-day depot medication, such as Ramon ldol Decanoate. The patient notes that he he received a dose of Haldol last evening and that he tolerated it well and found it to be helpful. He notes that he has not heard any further voices since coming onto the psychiatric unit. He does say, however, that he continues to wake up periodically throughout the night. Physical Exam Psychiatric Orientation: alert, oriented x 3 and cooperative (and pleasant) Apperance: appropriately dressed (casually, in jeans and a t-shirt), appropria tely groomed and appeared stated age Eye Contact: good eye contact Motor Behavior: no abnormal motor movements (but does appear anxious/restless, running hands through hair ) Speech: normal rate/rhythm/volume of speech Affect: + anxious affect Mood: + anxious mood Thought Process: goal directed thought process, linear/logical thought process and + perseveration (on discharge planning, details related to housing) Continues to be somewhat disorganized, but seems more consistent with anxiety than psychosis Thought Content: reality based without delusions (appropriately focused on discharge planning) Suicidal Thoughts: denies suicidal thoughts, denies suicidal plan and denies suicidal intent Homicidal Thoughts: denies homicidal thoughts Hallucinations: no auditory hallucinations and no visual hallucinations Cognition: recent memory grossly intact, attention grossly intact and language grossly intact Estimated Intelligence: consistent with education level Insight: + limited insight (likely chronic, but improved significantly from admission) Judgement: + limited judgement (likely chronic, but improved significantly from admission) Vital Signs (Past 24 Hours) Last Vital Signs Temp 36.3 C L 03/30/20 07:37 Pulse 98 H 03/30/20 07:37 Resp 18 03/30/20 07:37 BP 106/75 03/30/20 07:37 Pulse Ox 95 03/24/20 02:47 Principal Diagnosis - Schizophrenia - Anxiety - Insomnia Psychiatric Data 34-year-old male admitted voluntarily for inpatient psychiatric treatment on 03/24/2020 after presenting to the ED by police after reportedly causing damage at his apartment, which was believed to be related to decompensation of his mental health. Pt has a documented history of schizoaffective disorder versus schizophrenia, with symptoms beginning 15 years ago when he was in college. The admission was precipitated by the fact that he broke through what was essenti ally a wall that divided his apartment from the neighboring apartment while floridly psychotic, and what he described as a "dreamlike" or "sleepwalking" haze. He had poor memory from the events leading up to hospitalization, and his telehealth case manager reported she had had been unable to get the patient to take a call from her for several weeks and that he had been nonadherent with his outpatient medication. The patient acknowledges that he had missed his last fluphenazine decanoate 25 mg injection. As an outpatient, he was also prescribed Zyprexa 10 mg at bedtime, Depakote 500 mg at bedtime, and Wellbutrin SR 150 mg daily with benztropine 1 mg daily, but had not been taking any of them for about a month, so they were held on admission. Discussion occurred on admission that patient may require more frequent injections of fluphenazine, or could consider trial of haloperidol with plan to convert to SERNA. Pt did ultimately agree with switch to haloperidol and was titrated to 5mg BID. He did eventually agree to and receive the first decanoate 100 mg injection on 03/28/2020. Although patient initially presented as very disorganized with reports of auditory hallucinations, his condition improved over the course of his admission. Pt's thoughts became more organized and he was better able to process necessary discharge planning steps. Unfortunately, patient did find out during his admission that he is being asked to vacate his rental property. He did productively handle this situation with assistance from staff and outpatient supports. Pt involved his parents in these conversations, and he is planning to stay at his [place]'s [place] until he is able to secure alternative housing. Pt reports feeling comfortable with this discharge plan and family/telehealth case manager denied any safety concerns related to discharge planning. Pt tolerated medication adjustments and denied side effects. There was some residual disorganization, but this seemed to be most likely associated with his anticipatory anxiety about discharge rather than ongoing psychosis. Pt consistently denied SI and hallucinations prior to discharge. Based on review of patient's case and their current presentation, risk of harm to self or others is no longer perceived to be acute. Management of symptoms on an outpatient basis seems the most appropriate and least restrictive setting. Pt seems appropriate for discharge with recommendation for consistent follow-up with outpatient psychiatric prescriber and telehealth case manager. Pt verbalized understanding of discharge plan reviewed and is agreeable with plan to be discharged today. *Pt did indicate consideration to resume an antidepressant medication; however, decision was deferred as request was made just before anticipated discharge and there was concern regarding destabilization related to resuming bupropion with already heightened anxiety related to discharge planning. *Pt will be due for his next injection of haloperidol decanoate by at least 04/25/2020 (initial injection of 100mg IM was given 03/28/2020). Pt may require adjustments to his dose of haloperidol decanoate depending on stability of symptoms. He was continued on scheduled oral dose of haloperidol 5mg BID at time of discharge. Day of Discharge Assessment Patient's case was reviewed and discussed with nursing and social work. Staff report the patient has continued to appear anxious. Pt is scheduled to have a discharge planning meeting with our director of social work, his outpatient telehealth case manager, and parents this morning. Pt verbalized readiness for discharge and has continued to participate in group programming. Pt was seen today to assess progress since admission. Pt reports he is "good, bad, the same...all of it", which has been a consistent remark over the past few days. Pt insightfully states "it's just a lot to process, so it depends on the topic. I do feel good about what I accomplished here." Pt states that he is worried about "replaying the same situation...you know. Hindsight is 20-20. I'm aware that I wasn't taking my medications and that I don't want this to happen again." When asked what patient could do differently to prevent this from happening in the future, he states "making sure I take my medications and that I go to my appointments." Pt was also reminded of his ability to contact his parents and his case manage for support as needed. Pt is anticipating working with his parents and telehealth case manager this afternoon to begin moving his belongings from his apartment. Pt states the meeting this morning went well and he feels comfortable with returning home. When discussing the patient's current thought process, he admits he is anxious and there is a lot on his mind. He does, however, feel his thoughts are clear and denies any concerns related to paranoia or delusions. Transition of Care Transition Of Care Record: was reviewed with the patient Advance Directives Advance Directives Information Provided: Yes Advance Directives: No Mental Health Advance Directive: No Living Will: No Power of Plastic Tool Maker: No Advance Directives Reason:: Declines as Mental Health Visit. Risk Factors Assessment Presenting risk factors reviewed on discharge. Precipitating stressors mitigated by: admission for inpatient psychiatric observation and treatment, appropriate adjustments to medications to target symptoms, attendance of therapeutic treatment groups, development of healthy and effective coping strategies, involvement of outpatient supports, completion of a safety plan, confirmation of guns and weapons being secured, treatment of medical conditions and education on diagnoses. Pt has demonstrated improvement in condition with regard to improvement in mood and clarity of thought, productive engagement in discharge planning, involvement of parents and outpatient telehealth case manager in treatment, denial of SI and additional safety concerns. At this time, patient is requesting discharge and is no longer considered to be at acute risk of harm to himself or others. Pt will be discharged with recommendation for ongoing outpatient psychiatric treatment. Pt is at increased risk of harm to self or others when compared to the general population based on his psychiatric history. Although overall condition is improved, there are several risk factors which are not likely to be mitigated in an inpatient treatment setting - specifically as it relates to his housing transition after discharge. Pt reminded of importance of compliance with medications, outpatient appointments, and Male: Yes : Yes Do You Have Access To A Gun?: No Health Problems: Yes Mental Health Diagnoses: Yes Substance Use Disorders: No Previous Attempt: No Family History of Suicide: No Previous Psychiatric Hospitalization: Yes Hopelessness: No Smoker: Yes (Patient describes himself as a "sometimes" smoker and does not experience nicotine withdrawal.) Protective Factors Assessment Yazidism Beliefs: Yes (The patient reports that he is "a combination of Worship and Nondenominational.") : No Responsible for Young Children: No Employed: No (seeking employment) Stable Relationships: Yes Supportive Family: Yes Good Rapport with Provider: Yes Absence of Any Risk Factors Above: No Tobacco Cessation at Discharge Tobacco Cessation Medication Prescribed at Discharge: Offered & Prescribed (pt accepting of call to [facility] and [facility]) Practical counseling provided including: developing coping skills and providing basic information about quitting Tobacco Cessation Outpatient Followup: Outpatient referral made to ([facility], [facility]) Total Time Total Time Spent: Greater Than 30 Minutes Total Time Includes: Examination of the patient, Discharge Planning, Medication Reconciliation and Communication with other providers Discharge Data Lab Results 03/23/20 03/23/20 03/23/20 22:20 22:20 22:20 WBC 7.34 RBC 4.68 L Hgb 14.6 Hct 41.5 L MCV 88.7 MCH 31.2 MCHC 35.2 RDW Std Deviation 41.3 RDW Coeff of Cleve 12.8 Plt Count 193 MPV 10.7 H Immature Gran % (Auto) 0.1 Neut % (Auto) 64.2 Lymph % (Auto) 24.3 [place] % (Auto) 9.8 Eos % (Auto) 1.1 Baso % (Auto) 0.5 Immature Gran # (Auto) 0.01 Neut # (Auto) 4.71 Lymph # (Auto) 1.78 [place] # (Auto) 0.72 H Eos # (Auto) 0.08 Baso # (Auto) 0.04 Sodium 131 L Potassium 3.9 Chloride 101 Carbon Dioxide 25 Anion Gap 5.0 BUN 6 L Creatinine 0.87 Est Cr Clr Drug Dosing 169.5 Est GFR ( Amer) 129.6 Est GFR (Non-Af Amer) 111.8 BUN/Creatinine Ratio 7.3 L Glucose 133 H Fasting Glucose Calcium 9.0 Total Bilirubin 0.5 AST 14 L ALT 39 Alkaline Phosphatase 40 L Total Protein 7.1 Albumin 4.3 Globulin 2.8 Albumin/Globulin Ratio 1.5 Triglycerides Cholesterol LDL Cholesterol, Calc VLDL Cholesterol, Calc HDL Cholesterol Cholesterol/HDL Ratio TSH 3.540 Specimen Hemolysis Urine Color Urine Appearance Urine pH Ur Specific [place] Urine Protein Urine Glucose (UA) Urine Ketones Urine Blood Urine Nitrite Urine Bilirubin Urine Urobilinogen Ur Leukocyte Esterase Salicylates 3.2 Urine Opiates Screen Ur Methadone, Qual Acetaminophen < 2 L Urine Barbiturates Valproic Acid < 3 L Ur Phencyclidine (PCP) U Amphetamin/Meth Scrn MDMA (Ecstasy) Screen U Benzodiazepines Scrn Ur Cocaine Metabolite U Marijuana (THC) Screen Ethyl Alcohol mg/dL 03/23/20 03/23/20 03/23/20 22:20 22:28 22:28 WBC RBC Hgb Hct MCV MCH MCHC RDW Std Deviation RDW Coeff of Cleve Plt Count MPV Immature Gran % (Auto) Neut % (Auto) Lymph % (Auto) [place] % (Auto) Eos % (Auto) Baso % (Auto) Immature Gran # (Auto) Neut # (Auto) Lymph # (Auto) [place] # (Auto) Eos # (Auto) Baso # (Auto) Sodium Potassium Chloride Carbon Dioxide Anion Gap BUN Creatinine Est Cr Clr Drug Dosing Est GFR ( Amer) Est GFR (Non-Af Amer) BUN/Creatinine Ratio Glucose Fasting Glucose Calcium Total Bilirubin AST ALT Alkaline Phosphatase Total Protein Albumin Globulin Albumin/Globulin Ratio Triglycerides Cholesterol LDL Cholesterol, Calc VLDL Cholesterol, Calc HDL Cholesterol Cholesterol/HDL Ratio TSH Specimen Hemolysis Urine Color Yellow Urine Appearance Clear Urine pH 7.5 Ur Specific [place] 1.006 Urine Protein Negative Urine Glucose (UA) Negative Urine Ketones Negative Urine Blood Negative Urine Nitrite Negative Urine Bilirubin Negative Urine Urobilinogen Negative Ur Leukocyte Esterase Negative Salicylates Urine Opiates Screen Neg Ur Methadone, Qual Neg Acetaminophen Urine Barbiturates Neg Valproic Acid Ur Phencyclidine (PCP) Neg U Amphetamin/Meth Scrn Neg MDMA (Ecstasy) Screen Neg U Benzodiazepines Scrn Neg Ur Cocaine Metabolite Neg U Marijuana (THC) Screen Neg Ethyl Alcohol mg/dL < 3.0 03/28/20 07:59 WBC RBC Hgb Hct MCV MCH MCHC RDW Std Deviation RDW Coeff of Cleve Plt Count MPV Immature Gran % (Auto) Neut % (Auto) Lymph % (Auto) [place] % (Auto) Eos % (Auto) Baso % (Auto) Immature Gran # (Auto) Neut # (Auto) Lymph # (Auto) [place] # (Auto) Eos # (Auto) Baso # (Auto) Sodium Potassium Chloride Carbon Dioxide Anion Gap BUN Creatinine Est Cr Clr Drug Dosing Est GFR ( Amer) Est GFR (Non-Af Amer) BUN/Creatinine Ratio Glucose Fasting Glucose 94 Calcium Total Bilirubin AST ALT Alkaline Phosphatase Total Protein Albumin Globulin Albumin/Globulin Ratio Triglycerides 204 H Cholesterol 166 LDL Cholesterol, Calc 92 VLDL Cholesterol, Calc 41 HDL Cholesterol 33 Cholesterol/HDL Ratio 5 TSH Specimen Hemolysis Urine Color Urine Appearance Urine pH Ur Specific [place] Urine Protein Urine Glucose (UA) Urine Ketones Urine Blood Urine Nitrite Urine Bilirubin Urine Urobilinogen Ur Leukocyte Esterase Salicylates Urine Opiates Screen Ur Methadone, Qual Acetaminophen Urine Barbiturates Valproic Acid Ur Phencyclidine (PCP) U Amphetamin/Meth Scrn MDMA (Ecstasy) Screen U Benzodiazepines Scrn Ur Cocaine Metabolite U Marijuana (THC) Screen Ethyl Alcohol mg/dL Hospital Course (1) Schizophrenia: 03/24/2020. -The patient has been admitted to the [facility] behavioral health unit. His being encouraged to actively participate in individual, group, and activity therapies. -The patient indicates that his psychiatric symptoms respond favorably to Prolixin Decanoate. However, he says that what he does not like about Prolixin is that it "works for couple weeks and then stops working." It may be that the patient has been receiving his injections of Prolixin Decanoate less frequently than may be required in his case. He was asked to consider the option of continuing Prolixin decanoate, but with more frequent dosage administration, versus switching to Haldol with the goal of converting to Haldol decanoate once stabilized. -We will begin haloperidol 5 mg p.o. twice daily with benztropine 2 mg every morning. Material risks and anticipated benefit of both of these medications were reviewed with the patient. He asked several questions and indicated understanding. 03/25 -Continue oral Haldol, and transition to decanoate if tolerated/effective. -Attending and participating in groups, explore options for family meeting. Coordinate care with his [facility] Monisha. 03/26 -Continue Haldol, patient improving but may need to consider increased dose. Encouraged him to utilize PRN if needed. -bingo worker assist him to call the landlord to clarify any issues related to the episode prior to admission. 03/27 - Continue haloperidol, patient declining to increase scheduled dosing at this time but is aware of prn availability - did request a prn dose this afternoon - Received word that patient is no longer permitted to stay in his apartment, assist patient with exploration of other housing options and engaging parents in conversation - Fasting glucose and lipid panel ordered for tomorrow morning 03/28 - Continue oral haloperidol - after discussion of risks, benefits, and potential side effects, patient is agreeable with initiation of haloperidol decanoate - pt was provided with 100mg IM injection today - Fasting labs obtained this morning: triglycerides elevated at 204, other values WNL; fasting glucose - 94; cholesterol - 166; LDL - 92; HDL - 33 - Pt reports speaking with his family regarding housing options - they are willing to assist him in moving into their [place] until the patient is able to secure another apartment - patient denies concerns about getting to his appointments, getting groceries, and caring for self independently. - Continue to coordinate with outpatient supports to discuss appropriate discharge planning 03/29 -Continued slow improvement in thought organization, but remains extremely anxious, particularly around discharge and housing plans. -Continue oral haloperidol 5 mg twice daily for now, and can taper once psychosis resolves. -Staff to assist patient in calling family to determine how they can support him while he looks for new housing. Coordinate with his BCM who is also assisting with this. (2) Hypertension: 03/24/2020 -We will continue to monitor the patient's blood pressure. He reports that he has a history of hypertension and his his blood pressure was elevated at admission. He tells us that he has not been taking an antihypertensive. We we will begin lisinopril 5 mg in the morning. (3) Insomnia: 03/24/2020. -Patient reports that he has frequently interrupted sleep regardless of his mood, and essentially describes primary insomnia. He notes that, in the past, he has responded favorably to hydroxyzine. -The patient is obese, and his pattern of intermittent insomnia would suggest the need to rule out obstructive sleep apnea. This was discussed with the patient and it was recommended that he follow-up on this with a primary care provider following discharge. -I will offer the patient trazodone 50 mg at bedtime as a standing order for sleep. (4) Anxiety: 03/24/2020 -Patient reports that he is often anxious and that this occurs regardless of whether he is feeling "up" or "down." Patient was provided with information regarding mindfulness techniques that can be used to manage anxiety when it occurs. -The patient was also advised that he can take hydroxyzine as needed for anxiety during the day. Mental Health & Subst Abuse Tx Psychiatrist Name of Psychiatrist: Nain Tang Psychiatrist's Date of Appointment with Psychiatrist: 04/05/20 Time of Appointment with Psychiatrist: 11:30 a.m. Psychiatric Appointment Comment: ([facility]) Therapist Name of Therapist: None Chili Powder Mixer Name of Chili Powder Mixer: [facility] Loan Lomeli Phone Number for Chili Powder Mixer: [phone] Case Management Appointment Comment: Will follow up with you Post Discharge Appointments Primary Care Physician Name Of Family Doctor: [facility] Time of Appointment with PCP: Please follow up as needed Provider Appointment Comment: [id number] [employer] [facility] Smoking Cessation Counseling Tobacco Cessation Medication Prescribed at Discharge: Offered & Prescribed (pt accepting of call to [facility]uit Line and Nicorette Gum) Other #1: Name of Aftercare Appointment: [facility] Legal Services - Naeem Altamirano Phone Number of Aftercare Appointment: [phone] ext [phone] Aftercare Appointment Comment: Follow up as needed Contact Information Discharge Discharge Address: [address] [place] [id number] Discharge Plan Discharge Items Patient Disposition: Home - Self-Care Reason For Visit: SCHIZOPHRENIA Discharge Diagnosis: - Schizophrenia - Anxiety - Insomnia Condition on Discharge: Fair Activity: Resume your previous activity Non-emergency contact: Primary Care Provider, Psychiatrist, Therapist and Slide Fastener Chain Assembler Call non-emergency contact if: you have any medication questions and your symptoms worsen Follow-up/Referrals: Hammad Farooq III, CRNP [Primary Care Provider] - Diet: Regular Addtl Attending Provider Instructions: SPECIAL CARE INSTRUCTIONS: 1. Follow through with your scheduled aftercare appointments. If unable to keep an appointment, please call to reschedule. 2. Take your medication only as prescribed. Medication should not be changed or stopped without the approval of your doctor. In the event of worsening symptoms or concerns about side effects, contact your doctor immediately. 3. Utilize new healthy coping skills, anger management skills, and stress management skills learned during your hospitalization. Journal feelings and process them with a support person. Identify stressors or situations that may result in relapse, deterioration or inappropriate behaviors and develop a plan to deal with those issues. 4. If your coping skills are ineffective and you are in crisis, contact your outpatient providers for direction. If unable to reach your providers, please call the CAN HELP LINE AT or go to the closest Emergency Room. 5. Avoid alcohol and un-prescribed drugs. 6. You have been provided with the Mental Health Advance Directives Pamphlet for your review. AFTERCARE APPOINTMENTS: * Please call your insurance company prior to your scheduled appointment to confirm your aftercare providers are covered. Take your insurance information to your appointments. WHO TO CALL AND WHEN: Medical Emergencies: For questions or emergencies related to your hospital stay, please contact the Inpatient Behavioral Health Unit at [phone]. A [employer] consultant is on-call 19/05 for the Behavioral Health Unit for emergencies At any time you feel your situation is an emergency, you may also call 911 immediately. Your Discharge Instructions noted above were prepared by provider Elena Bonilla PA-C. Pending Studies at Discharge: No Stand-Alone Forms: My [facility] [employer], Smoking Cessation, Suicide Prevention Resources Medications and DC Order Prescriptions: New nicotine (polacrilex) [Nicorelief] 2 mg Gum 2 mg MT PRN PRN (Reason: nicotine cravings) Qty: 50 RF: 0 lisinopril [Zestril] 5 mg Tablet 5 mg PO QAM 30 Days Qty: 30 RF: 0 benztropine 2 mg tablet 2 mg PO QAM 30 Days Qty: 30 RF: 0 haloperidol 5 mg Tablet 5 mg PO BID 30 Days Qty: 60 RF: 0 trazodone 50 mg Tablet 50 mg PO HS 30 Days Qty: 30 RF: 0 Continued albuterol sulfate [Ventolin HFA] 90 mcg/actuation HFA aerosol inhaler 1 puffs INH Q6H PRN (Reason: shortness of breath or wheezing) Qty: 18 RF: 1 meloxicam [Mobic] 7.5 mg tablet 7.5 mg PO BID Qty: 60 RF: 3 fexofenadine [Kaci Allergy] 180 mg tablet 180 mg PO DAILY PRN (Reason: Allergy Symptoms) RF: 0 ibuprofen [Advil] 200 mg Tablet 600 mg PO QID PRN (Reason: Pain) RF: 0 Discontinued Vraylar 3 mg capsule 3 mg PO HS RF: 0 bupropion HCl [Wellbutrin SR] 150 mg Tablet Sustained-Release 12 Hr 150 mg PO HS RF: 0 benztropine 1 mg tablet 1 mg PO DAILY RF: 0 fluphenazine decanoate 25 mg/mL solution IM [id number] RF: 0 Discharge Orders: Discharge Order (Routine); Ordered 03/30/20 Ordered By: Elena Bonilla Admission Data Admit Date/Time: 03/24/20 02:59 Attending Provider: Stefania Kumari Admit Provider: Karina Contreras Primary Care Provider: Hammad Farooq III Other Interventions: PSY Interdisciplinary Discharge Planning Last Done: 03/30/20 09:54 DC Date/Time DO NOT enter until pt leaves facility: 03/30/20 11:38 Coding Level of Care Code 80480 D/C day mgmt > 30 min Diagnoses Schizophrenia F20.9 Hypertension I10 Insomnia G47.00 Anxiety F41.9
[2020-03-30] MEDS ORDERED: HALOPERIDOL DECANOATE INJ 50 MG/ML VIAL IM ONE (11:15)
[2020-03-30] MEDS ORDERED: TRAZODONE HCL 50 MG TAB PO SCH (22:00)
[2020-04-25] MEDS ORDERED: HALOPERIDOL DECANOATE INJ 50 MG/ML VIAL IM ONE (08:00)
== END 2020-03-30 11:38 | disposition home or self-care (01) | DRG 885 ==
LOC: EDSEX → ED 21:31 → SUATTDRO 03-24 02:59 → 3S 03-24 02:59